=== PATIENT | male | born 1975 | race Two or more races ===

== ENCOUNTER 2016-11-09 21:09 | Emergency (ER) | payer OTHER ==
[~2016-11-09] VITALS: Ht 175.3 cm; Wt 75.0 kg
[~2016-11-09 21:09] MED LIST: HYDR-906 PO; OMEP10CA4 PO; ONDA4TAB11 PO; RANI150T9 PO
[2016-11-09 21:11] VITALS: Ht 175.3 cm; Wt 75.0 kg
[2016-11-10] MEDS ORDERED: ONDANSETRON 4 MG INJ IV STA (01:04)
--- NOTE | 2016-11-10 01:04 | ERD ---
ER Documentation Chief Complaint Date/Time DATE: 11/10/16 TIME: 01:02 Chief Complaint epigastric pain x 2 days, been drinking etoh yesterday hx- gastric ulcers ROS All systems reviewed and are negative except as per history of present illness. Medications Home Meds Active Scripts Omeprazole* (Omeprazole*) 10 Mg Capsule.dr, 10 MG PO DAILY, #30 CAP Prov:YVONNE HERRERA DO 07/14/16 Ranitidine Hcl* (Zantac*) 150 Mg Tablet, 150 MG PO BID Y for EPIGASTRIC PAIN, # 30 TAB Prov:YVONNE HERRERA DO 07/14/16 Hydrocodone/Acetaminophen ([place] 5-325 Tablet) 1 Each Tablet, 1 EACH PO Q6, #10 TAB Prov:YVONNE HERRERA DO 07/14/16 Ondansetron (Zofran Odt) 4 Mg Tab.rapdis, 4 MG PO Q6, #10 Prov:YVONNE HERRERA DO 07/14/16 Allergies Allergies: Coded Allergies: No Known Allergy (Unverified , 11/09/16) PMhx/Soc Hx Alcohol Use: Yes (OCCASIONAL) Hx Substance Use: No Hx Tobacco Use: Yes (1PK/DAY) Smoking Status: Current every day smoker Physical Exam Vitals Vital Signs Date Time Temp Pulse Resp B/P Pulse Ox O2 Delivery O2 Flow Rate FiO2 11/09/16 21:11 98.3 113 20 166/97 100 Results 24 hrs Current Medications Medications (Trade) Dose Ordered Sig/Devan Route PRN Reason Start Time Stop Time Status Last Admin Dose Admin Ondansetron HCl 4 mg 4 mg ONCE STAT IV 11/10/16 01:04 11/10/16 01:10 DC 11/10/16 01:16 Sodium Chloride (NS) 1,000 ml @ 1,000 mls/hr Q1H ONCE IV 11/10/16 01:30 11/10/16 02:29 11/10/16 01:17 Pantoprazole (Protonix Iv) 40 mg ONCE ONCE IV 11/10/16 01:30 11/10/16 01:31 Morphine Sulfate (morphine) 4 mg ONCE STAT IV 11/10/16 01:16 11/10/16 01:18 DC Departure Diagnosis: Primary Impression: Epigastric pain Condition: Stable Additional Instructions: Follow-up with your primary care physician within 1 week. Return to the emergency department immediately should you have any new or worsening symptoms, uncontrolled fevers, or other unexplained symptoms. Take all medications as directed. VALDEZ MILIAN PA-C Nov 10, 2016 01:04 VALDEZ MILIAN PA-C Nov 10, 2016 01:04
[2016-11-10] MEDS ORDERED: morphine 4 MG/ML VIAL IV STA ×3 (01:16→02:29)
[2016-11-10] MEDS ORDERED: LIDOCAINE/MYLANTA 40 ML BTL PO ONE (01:30)
[2016-11-10] MEDS ORDERED: PANTOPRAZOLE 40 MG INJ IV ONE (01:30)
[2016-11-10] MEDS ORDERED: SOD CHLORIDE 0.9% 1,000 ML IV ONE (01:30)
[2016-11-10 01:42] LABS: BASOPHILS % 0.4 % (0.0-2.0); EOSINOPHILS % 0.3 % (0.0-7.0); HEMATOCRIT 47.6 % (42.0-52.0); HEMOGLOBIN 16.4 g/dl (14.0-18.0); LYMPHOCYTES # 2.2 10^3/ul (0.8-2.9); LYMPHOCYTES % 17.4 % (15.0-51.0); MEAN CORPUSCULAR HGB CONC 34.4 g/dl (32.0-37.0); MEAN CORPUSCULAR VOLUME 93.1 fl (82.0-101.0); MEAN PLATELET VOLUME 7.6 fl (7.4-10.4); MONOCYTE # 1.1 10^3/ul (0.3-0.9); MONOCYTES % 8.7 % (0.0-11.0); NEUTROPHIL # 9.3 10^3/ul (1.6-7.5); NEUTROPHILS % 73.2 % (39.0-77.0); PLATELET COUNT 294 10^3/UL (140-440); RED BLOOD COUNT 5.11 10^6/ul (4.70-6.10); RED CELL DISTRIBUTION WIDTH 15.2 % (11.5-14.5); UNCORRECTED WBC 12.7 10^3/ul (4.8-10.8); WHITE BLOOD COUNT 12.7 10^3/ul (4.8-10.8)
[2016-11-10 01:43] LABS: CONDITION 1; LH ANALYZER COMMENTS 1
[2016-11-10 02:07] LABS: ALBUMIN 4.9 g/dl (3.3-4.9); POTASSIUM 3.7 mmol/L (3.5-5.1)
[2016-11-10 02:09] LABS: CREATININE 0.76 mg/dl (0.61-1.24)
[2016-11-10 02:10] LABS: ALBUMIN/GLOBULIN RATIO 1.58; BILIRUBIN,INDIRECT 0.6 mg/dl (0-1.1); BILIRUBIN,TOTAL 0.6 mg/dl (0.2-1.3); CALCIUM 9.2 mg/dl (8.4-10.2)
[2016-11-10 03:13] LABS: URINE BLOOD (Dip) POC Trace-lysed (NEGATIVE)
[2016-11-10] MEDS ORDERED: HYDROmorphONE 1 MG/ML SYG IV STA (03:58)
[2016-11-10 04:07] LABS: BARBITURATES Negative (NEGATIVE); BENZODIAZEPINES Negative (NEGATIVE); CANNABINOIDS Positive (NEGATIVE)
[2016-11-10 04:09] LABS: COCAINE Negative (NEGATIVE); OPIATES Positive (NEGATIVE)
[2016-11-10] MEDS ORDERED: OMEP20CA16 PO (04:59)
--- NOTE | 2016-11-10 05:13 | ERD ---
ER Documentation Chief Complaint Date/Time DATE: 11/10/16 TIME: 05:10 Chief Complaint epigastric pain x 2 days, been drinking etoh yesterday hx- gastric ulcers HPI 41-year-old male with a past medical history of gastric ulcers, alcohol abuse, presents the ED complaining of epigastric pain that started yesterday. States that he took 4-5 shots of vodka yesterday as well as was drinking earlier today. States that he feels nauseous and had a few episodes of nonbilious nonbloody vomiting. States that this feels like a burning sensation. Reports that he has been drinking for years. Denies any diabetes, hypertension, hypercholesterolemia. Denies any family history of acute [place]. Denies any use of drugs. Denies any chest pain, shortness of breath, cough, fever. ROS All systems reviewed and are negative except as per history of present illness. Medications Home Meds Active Scripts Omeprazole* (Omeprazole*) 20 Mg Capsule., 20 MG PO DAILY, #30 CAP Prov:FAMILIA YOUNG PA-C 11/10/16 Omeprazole* (Omeprazole*) 10 Mg Capsule., 10 MG PO DAILY, #30 CAP Prov:YVONNE HERRERA DO 07/14/16 Ranitidine Hcl* (Zantac*) 150 Mg Tablet, 150 MG PO BID Y for EPIGASTRIC PAIN, # 30 TAB Prov:YVONNE HERRERA DO 07/14/16 Hydrocodone/Acetaminophen ([place] 5-325 Tablet) 1 Each Tablet, 1 EACH PO Q6, #10 TAB Prov:YVONNE HERRERA DO 07/14/16 Ondansetron (Zofran Odt) 4 Mg Tab.rapdis, 4 MG PO Q6, #10 Prov:YVONNE HERRERA DO 07/14/16 Allergies Allergies: Coded Allergies: No Known Allergy (Unverified , 11/09/16) PMhx/Soc Hx Alcohol Use: Yes (OCCASIONAL) Hx Substance Use: No Hx Tobacco Use: Yes (1PK/DAY) Smoking Status: Current every day smoker Physical Exam Vitals Vital Signs Date Time Temp Pulse Resp B/P Pulse Ox O2 Delivery O2 Flow Rate FiO2 11/09/16 21:11 98.3 113 20 166/97 100 Physical Exam Const: [id number], well-nourished. In no acute distress. Head: Atraumatic, normocephalic Eyes: Normal Conjunctiva without injection. No purulent discharge. ENT: Normal external ear, nose. Moist oropharynx without tonsillar exudates. Non -erythematous pharynx. Uvula midline. No drooling. No trismus. Neck: No cervical midline tenderness. Full range of motion. No meningismus. No cervical lymphadenopathy. No JVD. Resp: Clear to auscultation bilaterally. No wheezing, rhonchi, rales, or crackles. No accessory muscle use. No retractions. Cardio: Regular rate and rhythm. No murmurs, rubs or gallops. Abd: Soft, epigastric tenderness, non distended. Normal bowel sounds. No palpable masses. No rebound tenderness. No guarding. Negative McBurney's point. Negative psoas sign. Negative obturator sign. Skin: No petechiae or rashes Back: No midline tenderness. No CVA tenderness. Ext: No cyanosis, or edema. Neur: Awake and alert. Normal gait. Normal coordination. Psych: Normal Mood and Affect Result Diagram: 11/10/1612411/10/16 0125 Results 24 hrs Laboratory Tests Test 11/10/16 01:25 11/10/16 03:05 11/10/16 03:14 Alanine Aminotransferase (ALT/SGPT) 89IU/L Albumin 4.9g/dl Albumin/Globulin Ratio 1.58 Alkaline Phosphatase 121IU/L Anion Gap 26 Aspartate Amino Transf (AST/SGOT) 95IU/L Basophils # 0.010^3/ul Basophils % 0.4% Blood Morphology Comment Blood Urea Nitrogen 12mg/dl Calcium Level 9.2mg/dl Carbon Dioxide Level 26mmol/L Chloride Level 98mmol/L Creatinine 0.76mg/dl Direct Bilirubin 0.00mg/dl Eosinophils # 0.010^3/ul Eosinophils % 0.3% Ethyl Alcohol Level 218.0mg/dl Globulin 3.10g/dl Glucose Level 90mg/dl Hematocrit 47.6% Hemoglobin 16.4g/dl Indirect Bilirubin 0.6mg/dl Lipase 244U/L Lymphocytes # 2.210^3/ul Lymphocytes % 17.4% Mean Corpuscular Hemoglobin 32.0pg Mean Corpuscular Hemoglobin Concent 34.4g/dl Mean Corpuscular Volume 93.1fl Mean Platelet Volume 7.6fl Monocytes # 1.110^3/ul Monocytes % 8.7% Neutrophils # 9.310^3/ul Neutrophils % 73.2% Nucleated Red Blood Cells # 0.010^3/ul Nucleated Red Blood Cells % 0.0/100WBC Platelet Count 24230^3/UL Potassium Level 3.7mmol/L Red Blood Count 5.1110^6/ul Red Cell Distribution Width 15.2% Sodium Level 146mmol/L Total Bilirubin 0.6mg/dl Total Protein 8.0g/dl White Blood Count 12.710^3/ul Urine Amphetamines Screen Negative Urine Barbiturates Negative Urine Benzodiazepines Screen Negative Urine Cannabinoids Positive Urine Cocaine Screen Negative Urine Opiates Screen Positive Bedside Urine Blood Trace-lysed Bedside Urine Glucose (UA) Negative Bedside Urine Ketones (LAB) 2+ Bedside Urine Leukocyte Esterase (L Negative Bedside Urine Nitrite (LAB) Negative Bedside Urine Protein (LAB) 2+ Bedside Urine pH (LAB) 7.0 Current Medications Medications (Trade) Dose Ordered Sig/Devan Route PRN Reason Start Time Stop Time Status Last Admin Dose Admin Ondansetron HCl 4 mg 4 mg ONCE STAT IV 11/10/16 01:04 11/10/16 01:10 DC 11/10/16 01:16 Sodium Chloride (NS) 1,000 ml @ 1,000 mls/hr Q1H ONCE IV 11/10/16 01:30 11/10/16 02:29 DC 11/10/16 01:17 Pantoprazole (Protonix Iv) 40 mg ONCE ONCE IV 11/10/16 01:30 11/10/16 01:31 DC 11/10/16 01:38 Morphine Sulfate (morphine) 4 mg ONCE STAT IV 11/10/16 01:16 11/10/16 01:17 Cancel Miscellaneous Medication (Gi Cocktail (2)) 40 ml ONCE ONCE PO 11/10/16 01:30 11/10/16 01:31 DC 11/10/16 01:37 Morphine Sulfate (morphine) 4 mg ONCE STAT IV 11/10/16 01:49 11/10/16 01:51 DC 11/10/16 02:00 Morphine Sulfate (morphine) 3 mg ONCE STAT IV 11/10/16 02:29 11/10/16 02:30 DC 11/10/16 02:36 Hydromorphone HCl (Dilaudid) 1 mg ONCE STAT IV 11/10/16 03:58 11/10/16 04:00 DC 11/10/16 04:05 Procedures/MDM 41-year-old male with a past medical history of alcohol use, gastric ulcer presents to the ED complaining of epigastric pain. Patient is afebrile and nontoxic-appearing. She is in distress due to his pain. A CBC, CMP, lipase, and urine dip, 1 L of normal saline, GI cocktail, ethanol, Protonix 40 mg IV was ordered to further treat and evaluate patient. Patient's pain finally improved after being treated with 7 mg's IV morphine and 1 mg Dilaudid. CBC: No leukocytosis. No e/o of systemic infection. No e/o anemia. CMP: No e/o severe acidosis, alkalosis, renal failure, diabetic ketoacidosis, liver disease Lipase within normal limits. Urine: No leukocyte esterase, no nitrites, no hematuria. Positive for opioid and cannabinoid use. EKG reviewed and interpreted by Dr. Hernandez Rate/Rhythm: [83 bpm, Normal Sinus Rhythm] No ectopy, no ST elevations, normal axis. QRS, ST, T-waves: [No changes consistent w/ acute ischemia] Impression: [No evidence of ischemia or arrhythmia] Low suspicion for acute myocardial infarction, pneumothorax, pneumonia, cardiac tamponade, pulmonary embolism, AAA, aortic dissection, Boerhaave's syndrome, cardiac dysrhythmias,meningitis, intracranial bleed, seizure, stroke, TIA or other emergent conditions. Patient's pain is likely due to gastritis. I strictly instructed patient to discontinue the use of alcohol use. A differential diagnosis considered includes but is not limited to gastritis, GERD, peptic ulcer disease, cholecystitis, choledocholithiasis, cholangitis, pancreatitis, appendicitis, bowel obstruction, ileus, volvulus, nephrolithiasis, pyelonephritis, hepatitis, perforated viscus, diverticulitis, abdominal hernia, acute abdomen, mesenteric ischemia or other emergent conditions. Discharge medications: Omeprazole Follow up with primary care physician in 1-2 days for referral to powder expert. Instructed patient to return to the ED sooner for any worsening symptoms. Patient's questions were answered. Patient understood and agreed with discharge plan. Patient discharged stable. Departure Diagnosis: Primary Impression: Epigastric pain Condition: Stable Patient Instructions: Gastritis Vs. Ulcer, Alcohol Abuse Referrals: [facility] YOU HAVE RECEIVED A MEDICAL SCREENING EXAM AND THE RESULTS INDICATE THAT YOU DO NOT HAVE A CONDITION THAT REQUIRES URGENT TREATMENT IN THE EMERGENCY DEPARTMENT. FURTHER EVALUATION AND TREATMENT OF YOUR CONDITION CAN WAIT UNTIL YOU ARE SEEN IN YOUR DOCTORS OFFICE WITHIN THE NEXT 1-2 DAYS. IT IS YOUR RESPONSIBILITY TO MAKE AN APPOINTMENT FOR FOLOW-UP CARE. IF YOU HAVE A PRIMARY DOCTOR --you should call your primary doctor and schedule an appointment IF YOU DO NOT HAVE A PRIMARY DOCTOR YOU CAN CALL OUR PHYSICIAN REFERRAL HOTLINE AT IF YOU CAN NOT AFFORD TO SEE A PHYSICIAN YOU CAN CHOSE FROM THE FOLLOWING [facility] [address] [facility]. [facility] [address] [facility]. [facility] [address] [facility] [facility] [address] [facility]. [facility] [address] [facility]. [facility] [address] [facility]. [facility] YOU HAVE RECEIVED A MEDICAL SCREENING EXAM AND THE RESULTS INDICATE THAT YOU DO NOT HAVE A CONDITION THAT REQUIRES URGENT TREATMENT IN THE EMERGENCY DEPARTMENT. FURTHER EVALUATION AND TREATMENT OF YOUR CONDITION CAN WAIT UNTIL YOU ARE SEEN IN YOUR DOCTORS OFFICE WITHIN THE NEXT 1-2 DAYS. IT IS YOUR RESPONSIBILITY TO MAKE AN APPOINTMENT FOR FOLOW-UP CARE. IF YOU HAVE A PRIMARY DOCTOR --you should call your primary doctor and schedule and appointment IF YOU DO NOT HAVE A PRIMARY DOCTOR YOU CAN CALL OUR PHYSICIAN REFERRAL HOTLINE AT . IF YOU CAN NOT AFFORD TO SEE A PHYSICIAN YOU CAN CHOSE FROM THE FOLLOWING [facility] INSTITUTIONS: [facility] [id number] [place] [address] [facility] [address] [place] [address] MERGED WITH [facility] + [facility] [address] [place] [address] [facility] URGENT [facility]/SPECIALTIES Additional Instructions: Follow-up with your primary care physician within 1-2 days. Return to the emergency department immediately should you have any new or worsening symptoms, uncontrolled fevers, or other unexplained symptoms. Take all medications as directed. FAMILIA YOUNG PA-C Nov 10, 2016 05:13
[2016-11-10 07:28] VITALS: BP 172/83; PULSE 101; RESP 18; TEMP 98.7
== END 2016-11-10 07:29 | disposition home or self-care (01) ==
LOC: FTE 21:09
DX: R10.13 Epigastric pain (principal); R11.2 Nausea with vomiting, unspecified; F17.210 Nicotine dependence, cigarettes, uncomplicated
CPT/HCPCS: 80053; 80306; 80307; 81003; 83690; 85025; 93005; 96374; 96375; 96376; C9113; J1170; J2270; J2405; J7030; Z7502; Z7610

== ENCOUNTER 2017-12-25 11:53 | Day surgery (SDC) | END 2017-12-25 15:01 | disposition home or self-care (01) ==

== ENCOUNTER 2018-01-22 21:54 | Inpatient (IN) | END 2018-01-30 17:30 | disposition home or self-care (01) | DRG 669 ==

== ENCOUNTER 2018-02-08 06:40 | Observation (INO) | END 2018-02-10 15:55 | disposition home or self-care (01) ==

== ENCOUNTER 2018-03-05 12:36 | Observation (INO) | END 2018-03-06 14:19 | disposition home or self-care (01) ==

== ENCOUNTER 2018-03-10 18:36 | Emergency (ER) | END 2018-03-10 23:25 | disposition home or self-care (01) ==

== ENCOUNTER 2018-03-11 15:25 | Observation (INO) | END 2018-03-13 12:40 | disposition home or self-care (01) ==

== ENCOUNTER 2018-03-26 16:15 | Emergency (ER) | END 2018-03-26 18:45 | disposition home or self-care (01) ==

== ENCOUNTER 2018-03-27 11:18 | Inpatient (IN) | END 2018-03-28 14:30 | disposition home or self-care (01) | DRG 374 ==

== ENCOUNTER 2018-04-12 15:02 | Emergency (ER) | END 2018-04-12 18:09 | disposition home or self-care (01) ==

== ENCOUNTER 2018-04-13 12:15 | Emergency (ER) | END 2018-04-13 14:12 | disposition home or self-care (01) ==

== ENCOUNTER 2018-04-14 14:14 | Observation (INO) | END 2018-04-17 13:41 | disposition home or self-care (01) ==

== ENCOUNTER 2018-05-03 16:30 | Emergency (ER) | END 2018-05-04 00:29 | disposition home or self-care (01) ==

== ENCOUNTER 2018-05-04 13:55 | Emergency (ER) | END 2018-05-04 15:57 | disposition home or self-care (01) ==

== ENCOUNTER 2018-05-05 14:41 | Inpatient (IN) | END 2018-05-07 13:05 | disposition home or self-care (01) | DRG 392 ==

== ENCOUNTER 2018-05-15 13:00 | Inpatient (IN) | END 2018-05-24 11:35 | disposition home health service (06) | DRG 331 ==

== ENCOUNTER 2018-06-04 05:10 | Inpatient (IN) | END 2018-06-06 18:00 | disposition home health service (06) | DRG 862 ==

== ENCOUNTER 2018-06-08 23:59 | Inpatient (IN) | END 2018-06-22 12:23 | disposition home or self-care (01) | DRG 907 ==

== ENCOUNTER 2018-08-06 18:44 | Emergency (ER) | END 2018-08-07 00:03 | disposition home or self-care (01) ==

== ENCOUNTER 2018-11-05 15:38 | Emergency (ER) | payer OTHER ==
[~2018-11-05] VITALS: Ht 177.8 cm; Wt 80.0 kg
[~2018-11-05 15:38] MED LIST changes: +ACET325T33 PO; +AMI10 PO; +HYDR-3609 PO; -HYDR-906 PO; +HYDR2TAB3 PO; +IBUP-1561 PO; +LIDO700A29 TP; -OMEP10CA4 PO; -ONDA4TAB11 PO; +ONDA4TAB8 PO; +PANT40TA3 PO; -RANI150T9 PO; +TRIM300C16 PO; +UDMYL PO
[2018-11-05 15:39] VITALS: Ht 177.8 cm; Wt 80.0 kg
[2018-11-05] MEDS ORDERED: HYDROmorphONE 1 MG/ML SYG IV STA (16:55)
[2018-11-05] MEDS ORDERED: SOD CHLORIDE 0.9% 1,000 ML IV STA (16:55)
[2018-11-05] MEDS ORDERED: ONDANSETRON 4 MG INJ IV STA (16:55)
[2018-11-05] MEDS ORDERED: DEXTROSE 5%-0.45% NACL 500 ML BAG IV ONE (17:00)
--- NOTE | 2018-11-05 17:00 | ERD ---
ER Documentation Chief Complaint Chief Complaint vomiting today, cancer patient HPI 43-year-old gentleman history of rectal CA status post surgery, chemo, radiation who presents with nausea and vomiting. He states symptoms over the past 24-48 hours. Moderate epigastric and mayank-Umbilical abdominal discomfort. Emesis is nonbloody nonbilious. The patient has had serial episodes of this over the last year with no clear identifiable cause. He denies any chest pain or shortness of breath. No fevers. ROS All systems reviewed and are negative except as per history of present illness. Medications Home Meds Active Scripts Ondansetron Hcl* (Zofran*) 4 Mg Tablet, 4 MG PO Q8H PRN for NAUSEA AND/OR VOMITING, #30 TAB Prov:JAMES SALAZAR MD 08/06/18 Acetaminophen* (Tylenol*) 325 Mg Tablet, 2 TAB PO Q8 PRN for PAIN, #60 TAB Prov:JAMES SALAZAR MD 08/06/18 Ibuprofen* (Motrin*) 400 Mg Tab, 400 MG PO BID PRN for PAIN, #60 TAB Prov:JAMES SALAZAR MD 08/06/18 Lidocaine (Lidoderm) 1 Each Adh..patch, 1 EACH TP TID PRN for PAIN, #1 BOX Prov:JAMES SALAZAR MD 08/06/18 Magaldrate/Simethicone* (Mag-Al Plus Suspension*) 30 Ml Oral.susp, 30 ML PO Q4H PRN for GASTROINTESTINAL UPSET for 14 Days, #1 Prov:TITUS BLACKWOOD MD 05/24/18 Hydrocodone/Acetaminophen (Hydrocodone-Acetamin 10-325 mg) 1 Each Tablet, 1 TAB PO Q4H PRN for PAIN 1-6 for 14 Days, #60 TAB Prov:TITUS BLACKWOOD MD 05/24/18 Amitriptyline Hcl* (Elavil*) 10 Mg Tab, 10 MG PO HS for 30 Days, TAB Prov:TITUS BLACKWOOD MD 05/24/18 Pantoprazole* (Protonix*) 40 Mg Tablet.dr, 40 MG PO BID for 28 Days, #60 TAB Prov:TITUS BLACKWOOD MD 05/24/18 Trimethobenzamide Hcl* (Tigan*) 300 Mg Capsule, 300 MG PO TID PRN for NAUSEA, #10 CAP Prov:TITUS BLACKWOOD MD 05/24/18 Reported Medications Hydromorphone Hcl* (Hydromorphone Hcl*) 2 Mg Tablet, 2 MG PO Q4H PRN for PAIN, TAB 06/04/18 Allergies Allergies: Coded Allergies: No Known Allergy (Unverified , 06/08/18) PMhx/Soc History of Surgery: Yes (Ileostomy and Lithotripsy (04/2018)) Anesthesia Reaction: No Hx 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 Disorder: No Hx Respiratory Disorders: No Hx Cardiac Disorders: No Hx Psychiatric Problems: No Hx Miscellaneous Medical Probl: No Hx Alcohol Use: No Hx Substance Use: No Hx Tobacco Use: No FmHx Family History: No diabetes Physical Exam Vitals Vital Signs Date Temp Pulse Resp B/P (MAP) Pulse Ox O2 O2 Flow FiO2 Time Delivery Rate 11/05/18 76 16 116/66 100 Room Air 18:21 (83) 11/05/18 60 16 150/87 100 Room Air 16:59 (108) 11/05/18 98.0 67 20 170/94 97 15:39 (119) Physical Exam General: Uncomfortable Head: Normocephalic, atraumatic. Eyes: Pupils equally reactive, EOM intact ENT: Dry mucous membranes Neck: Supple, no lymphadenopathy Respiratory: Lungs clear bilaterally, no distress Cardiovascular: RRR, no murmurs, rubs, or gallops Abdominal: Soft, mild generalized tenderness without localization or peritonitis : Deferred MSK: No edema, no unilateral swelling, 5/5 strength Neurologic: Alert and oriented, moving all extremities, normal speech, no focal weakness, no cerebellar signs Skin: No rash Psych: Normal mood Result Diagram: 11/05/18 1707 11/05/187 Results 24 hrs Laboratory Tests Test 11/05/18 17:07 White Blood Count 9.3 10^3/ul Red Blood Count 4.43 10^6/ul Hemoglobin 13.2 g/dl Hematocrit 40.4 % Mean Corpuscular Volume 91.2 fl Mean Corpuscular Hemoglobin 29.8 pg Mean Corpuscular Hemoglobin Concent 32.7 g/dl Red Cell Distribution Width 16.9 % Platelet Count 306 10^3/UL Mean Platelet Volume 9.8 fl Immature Granulocytes % 0.400 % Neutrophils % 83.0 % Lymphocytes % 7.6 % Monocytes % 8.2 % Eosinophils % 0.5 % Basophils % 0.3 % Nucleated Red Blood Cells % 0.0 /100WBC Immature Granulocytes # 0.040 10^3/ul Neutrophils # 7.7 10^3/ul Lymphocytes # 0.7 10^3/ul Monocytes # 0.8 10^3/ul Eosinophils # 0.1 10^3/ul Basophils # 0.0 10^3/ul Nucleated Red Blood Cells # 0.0 10^3/ul Sodium Level 142 mmol/L Potassium Level 4.1 mmol/L Chloride Level 101 mmol/L Carbon Dioxide Level 28 mmol/L Anion Gap 13 Blood Urea Nitrogen 12 mg/dl Creatinine 0.79 mg/dl Est Glomerular Filtrat Rate mL/min > 60 mL/min Glucose Level 109 mg/dl Calcium Level 10.1 mg/dl Total Bilirubin 0.2 mg/dl Direct Bilirubin 0.00 mg/dl Indirect Bilirubin 0.2 mg/dl Aspartate Amino Transf (AST/SGOT) 19 IU/L Alanine Aminotransferase (ALT/SGPT) 10 IU/L Alkaline Phosphatase 123 IU/L Total Protein 8.5 g/dl Albumin 4.6 g/dl Globulin 3.90 g/dl Albumin/Globulin Ratio 1.17 Lipase 27 U/L Current Medications Medications Dose Sig/Devan Start Time Status Last (Trade) Ordered Route PRN Stop Time Admin Dose Reason Admin Sodium 1,000 ml @ Q1H STAT 11/05/18 DC 11/05/18 Chloride 1,000 mls/hr IV 16:55 16:59 11/05/18 17:54 1 mg ONCE STAT 11/05/18 DC 11/05/18 Hydromorphone IV 16:55 16:59 HCl 11/05/18 16:56 (Dilaudid) Ondansetron 4 mg ONCE STAT 11/05/18 DC 11/05/18 HCl (Zofran IV 16:55 16:59 Inj) 11/05/18 16:56 500 ml ONCE ONCE 11/05/18 DC 11/05/18 Dextrose/Sodi IV 17:00 17:00 um Chloride 11/05/18 17:01 (D5-1/2ns) Lorazepam 1 mg ONCE ONCE 11/05/18 DC 11/05/18 (Ativan) IV 18:30 18:37 11/05/18 18:31 1 mg ONCE STAT 11/05/18 DC 11/05/18 Hydromorphone IV 18:29 18:37 HCl 11/05/18 18:30 (Dilaudid) Procedures/MDM EKG, MONITORS, & DIAGNOSTIC IMAGING: CT abdomen and pelvis: IMPRESSION: 1. Compared to the prior study of 08/06/2018, there has been presumed interval surgery with small bowel an anastomosis in the right lower quadrant for this patient with changes of prior ileostomy. 2. The presacral chronic collection is seen previously with a thickened rim now has fecal material within the lumen but is overall smaller in size compared to the previous studies. Continued surveillance is recommended. 3. Bilateral intrarenal calculi more conspicuous than on the previous contrast enhanced exam the largest stone in the lower pole of the left kidney measuring 4.3 mm without hydronephrosis. 4. No new intraperitoneal collection is identified. EKG: I reviewed and interpreted a 12-lead EKG. Rhythm: Normal sinus rhythm ST Changes: No contiguous ST segment elevations T waves: No contiguous T wave inversions Impression: [No evidence of acute cardiac ischemia] LAB INTERPRETATION: * No acute process noted MEDICAL DECISION MAKING: Patient presents with nausea vomiting abdominal pain in the setting of history of rectal CA status post surgery, chemo, radiation. Broad differential exists including bowel obstruction. Recurrence of disease. Patient will benefit from labs and CT imaging. It does appear to this has been a subacute process over the last 1 year, unclear if we will have an identifiable cause but the patient is uncomfortable benefit from fluid and pain medication. Lower threshold for hospitalization. I will reach out to the patient's primary oncologist, Dr. Mccoy ER COURSE: * IV, IVF, Dilaudid and zofran given * D5 1/2 NS for dehydration provided * I spoke to Dr. Mccoy he states that this is consistent with prior presentations. She is concerned that the patient has introital nausea and vomiting possibly related to chronic marijuana use. He does not recommend hospitalization unless the patient cannot have improved symptoms. * Patient had a repeat dose of pain medication and now has a dramatic improvement of symptoms after Ativan. At this point the patient can be safely discharged home. We discussed inpatient hospital station with the patient prefers discharge. CONSULTATION: [None] DISPOSITION PLAN: The patient does not have an identifiable emergent medical condition that warrants inpatient hospitalization at this time. The patient is deemed safe for discharge with outpatient follow-up. We discussed follow up with the patient's primary care doctor within 24 to 48 hours as needed. We also discussed return to the emergency room for worsening symptoms or worsening condition. Outpatient referral: Dr. Darius Marie Diagnosis: Primary Impression: History of rectal cancer Additional Impressions: Nausea and vomiting Vomiting type: unspecified Vomiting Intractability: non-intractable Qualified Codes: R11.2 - Nausea with vomiting, unspecified Abdominal pain Abdominal location: generalized Qualified Codes: R10.84 - Generalized abdominal pain Condition: Stable MATEO LOW MD Nov 05, 2018 17:00
[2018-11-05] MEDS ORDERED: HYDROmorphONE 0.5 MG/0.5 ML SYG IV STA (18:29)
[2018-11-05] MEDS ORDERED: LORAZEPAM 2 MG INJ IV ONE (18:30)
[2018-11-05 19:50] VITALS: BP 128/72; PULSE 70; RESP 16
[2018-11-28] MEDS ORDERED: CEPH500C PO (22:07)
== END 2018-11-05 20:02 | disposition home or self-care (01) ==
LOC: E/R 15:38
DX: R11.2 Nausea with vomiting, unspecified (principal); R10.84 Generalized abdominal pain; Z85.048 Personal history of other malignant neoplasm of rectum, rectosigmoid junction, and anus
CPT/HCPCS: 36415; 74176; 80053; 83690; 85025; 93005; 96374; 96375; 96376; J1170; J2060; J2405; J7030; Z7502; Z7610

== ENCOUNTER 2018-12-04 21:17 | Inpatient (IN) | payer OTHER ==
[~2018-12-04] VITALS: Ht 177.8 cm; Wt 68.5 kg
[~2018-12-04 21:17] MED LIST changes: +CEPH500C PO
[2018-12-04] MEDS ORDERED: ONDANSETRON 4 MG INJ IV STA (21:22)
[2018-12-04] MEDS ORDERED: SOD CHLORIDE 0.9% 1,000 ML IV STA (21:22)
[2018-12-04] MEDS ORDERED: HYDROmorphONE 1 MG/ML SYG IV STA (21:22)
[2018-12-04] MEDS ORDERED: HYDROmorphONE 0.5 MG/0.5 ML SYG IV STA (22:10)
[2018-12-04] MEDS ORDERED: HYDROmorphONE 2 MG/ML SYG IV STA (22:25)
[2018-12-04] MEDS ORDERED: LORA1TAB PO (23:47)
[2018-12-04] MEDS ORDERED: CAPE500T17 PO (23:47)
[2018-12-04] MEDS ORDERED: HYDR4TAB PO (23:47)
[2018-12-04] MEDS ORDERED: AMIT25TA9 PO (23:47)
[2018-12-04] MEDS ORDERED: METO10TA92 PO (23:47)
--- NOTE | 2018-12-04 23:48 | ERD ---
ER Documentation Chief Complaint Chief Complaint BIBA for AP and rectal pain HPI 43-year-old male history of rectal CA undergoing chemotherapy status post resection who presents to the emergency room with severe abdominal pain. He is having rectal pain as well. Pain for approximately 6-12 hours. Pain is 10 out of 10. He does describe nausea and nonbloody nonbilious emesis. No fevers chills cough chest pain or shortness of breath. ROS All systems reviewed and are negative except as per history of present illness. Medications Home Meds Active Scripts Cephalexin* (Cephalexin*) 500 Mg Capsule, 500 MG PO Q8, #21 CAP Prov:GOKUL TEIXEIRA MD 11/28/18 Hydrocodone/Acetaminophen (Hydrocodone-Acetamin 10-325 mg) 1 Each Tablet, 1 TAB PO Q4H PRN for PAIN 1-6 for 14 Days, #60 TAB Prov:TITUS BLACKWOOD MD 05/24/18 Reported Medications Lorazepam* (Lorazepam*) 1 Mg Tablet, 1 MG PO HS PRN for ANXIETY, #30 TAB 12/04/18 Metoclopramide* (Reglan*) 10 Mg Tablet, 10 MG PO AC MEALS, TAB 12/04/18 Capecitabine* (Xeloda*) 500 Mg Tablet, 500 MG PO BID, TAB 12/04/18 Amitriptyline Hcl* (Amitriptyline Hcl*) 25 Mg Tablet, 25 MG PO QHS for 30 Days, #30 TAB 12/04/18 Hydromorphone Hcl* (Hydromorphone Hcl*) 4 Mg Tablet, 4 MG PO Q4H PRN for PAIN for 8 Days, #90 TAB 12/04/18 Discontinued Reported Medications Hydromorphone Hcl* (Hydromorphone Hcl*) 2 Mg Tablet, 2 MG PO Q4H PRN for PAIN, TAB 06/04/18 Discontinued Scripts Ondansetron Hcl* (Zofran*) 4 Mg Tablet, 4 MG PO Q8H PRN for NAUSEA AND/OR VOMITING, #30 TAB Prov:JAMES SALAZAR MD 08/06/18 Acetaminophen* (Tylenol*) 325 Mg Tablet, 2 TAB PO Q8 PRN for PAIN, #60 TAB Prov:JAMES SALAZAR MD 08/06/18 Ibuprofen* (Motrin*) 400 Mg Tab, 400 MG PO BID PRN for PAIN, #60 TAB Prov:JAMES SALAZAR MD 08/06/18 Lidocaine (Lidoderm) 1 Each Adh..patch, 1 EACH TP TID PRN for PAIN, #1 BOX Prov:JAMES SALAZAR MD 08/06/18 Magaldrate/Simethicone* (Mag-Al Plus Suspension*) 30 Ml Oral.susp, 30 ML PO Q4H PRN for GASTROINTESTINAL UPSET for 14 Days, #1 Prov:TITUS BLACKWOOD MD 05/24/18 Amitriptyline Hcl* (Elavil*) 10 Mg Tab, 10 MG PO HS for 30 Days, TAB Prov:TITUS BLACKWOOD MD 05/24/18 Pantoprazole* (Protonix*) 40 Mg Tablet.dr, 40 MG PO BID for 28 Days, #60 TAB Prov:TITUS BLACKWOOD MD 05/24/18 Trimethobenzamide Hcl* (Tigan*) 300 Mg Capsule, 300 MG PO TID PRN for NAUSEA, #10 CAP Prov:TITUS BLACKWOOD MD 05/24/18 Allergies Allergies: Coded Allergies: No Known Allergy (Unverified , 12/04/18) PMhx/Soc History of Surgery: Yes (Ileostomy and Lithotripsy (04/2018)) Anesthesia Reaction: No Hx 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 Disorder: No Hx Respiratory Disorders: No Hx Cardiac Disorders: No Hx Psychiatric Problems: No Hx Miscellaneous Medical Probl: Yes (Rectal cancer status post chemo and radiation) Hx Alcohol Use: No Hx Substance Use: No Hx Tobacco Use: No Smoking Status: Never smoker FmHx Family History: No diabetes Physical Exam Vitals Vital Signs Date Temp Pulse Resp B/P (MAP) Pulse Ox O2 O2 Flow FiO2 Time Delivery Rate 12/05/18 99.3 83 22 137/81 96 Room Air 00:12 (99) 12/04/18 99.3 90 20 122/74 99 Room Air 23:26 (90) 12/04/18 99.3 95 20 117/68 99 Room Air 22:03 (84) 12/04/18 99.3 100 20 117/68 99 21:29 (84) Physical Exam General: Cachectic, dehydrated, uncomfortable Head: Normocephalic, atraumatic. Eyes: Pupils equally reactive, EOM intact ENT: Dry mucous membranes Neck: Supple, no lymphadenopathy Respiratory: Lungs clear bilaterally, no distress Cardiovascular: RRR, no murmurs, rubs, or gallops Abdominal: Soft, inconsistent but mild generalized tenderness without peritonitis : Deferred MSK: No edema, no unilateral swelling, 5/5 strength Neurologic: Alert and oriented, moving all extremities, normal speech, no focal weakness, no cerebellar signs Skin: No rash Psych: Normal mood Result Diagram: 12/04/18214812/04/182148 Results 24 hrs Laboratory Tests Test 12/04/18 21:49 12/04/18 21:58 White Blood Count 12.2 10^3/ul Red Blood Count 4.00 10^6/ul Hemoglobin 11.6 g/dl Hematocrit 36.6 % Mean Corpuscular Volume 91.5 fl Mean Corpuscular Hemoglobin 29.0 pg Mean Corpuscular Hemoglobin Concent 31.7 g/dl Red Cell Distribution Width 16.1 % Platelet Count 460 10^3/UL Mean Platelet Volume 9.0 fl Immature Granulocytes % 0.800 % Neutrophils % 87.9 % Lymphocytes % 4.4 % Monocytes % 6.5 % Eosinophils % 0.2 % Basophils % 0.2 % Nucleated Red Blood Cells % 0.0 /100WBC Immature Granulocytes # 0.100 10^3/ul Neutrophils # 10.7 10^3/ul Lymphocytes # 0.5 10^3/ul Monocytes # 0.8 10^3/ul Eosinophils # 0.0 10^3/ul Basophils # 0.0 10^3/ul Nucleated Red Blood Cells # 0.0 10^3/ul Sodium Level 138 mmol/L Potassium Level 4.4 mmol/L Chloride Level 97 mmol/L Carbon Dioxide Level 31 mmol/L Anion Gap 10 Blood Urea Nitrogen 15 mg/dl Creatinine 0.74 mg/dl Est Glomerular Filtrat Rate mL/min > 60 mL/min Glucose Level 117 mg/dl Calcium Level 9.7 mg/dl Total Bilirubin 0.1 mg/dl Direct Bilirubin 0.00 mg/dl Indirect Bilirubin 0.1 mg/dl Aspartate Amino Transf (AST/SGOT) 36 IU/L Alanine Aminotransferase (ALT/SGPT) 54 IU/L Alkaline Phosphatase 138 IU/L Total Protein 8.0 g/dl Albumin 4.1 g/dl Globulin 3.90 g/dl Albumin/Globulin Ratio 1.05 Lipase 23 U/L Bedside Urine pH (LAB) 6.5 Bedside Urine Protein (LAB) 1+ Bedside Urine Glucose (UA) Negative Bedside Urine Ketones (LAB) Negative Bedside Urine Blood Trace-intact Bedside Urine Nitrite (LAB) Negative Bedside Urine Leukocyte Esterase (L Negative Current Medications Medications Dose Sig/Devan Start Time Status Last (Trade) Ordered Route PRN Stop Time Admin Dose Reason Admin Sodium 1,000 ml @ Q1H STAT 12/04/18 DC 12/04/18 Chloride 1,000 mls/hr IV 21:22 21:45 12/04/18 22:21 1 mg ONCE STAT 12/04/18 DC 12/04/18 Hydromorphone IV 21:22 21:45 HCl 12/04/18 21:23 (Dilaudid) Ondansetron 4 mg ONCE STAT 12/04/18 DC 12/04/18 HCl (Zofran IV 21:22 21:45 Inj) 12/04/18 21:23 1 mg ONCE STAT 12/04/18 DC 12/04/18 Hydromorphone IV 22:10 22:12 HCl 12/04/18 22:11 (Dilaudid) 2 mg ONCE STAT 12/04/18 DC 12/04/18 Hydromorphone IV 22:25 22:28 HCl 12/04/18 22:26 (Dilaudid) 1 mg ONCE STAT 12/05/18 DC Hydromorphone IV 00:16 HCl 12/05/18 00:17 (Dilaudid) Procedures/MDM EKG, MONITORS, & DIAGNOSTIC IMAGING: Ultrasound gallbladder: No acute process per radiologist read CT abdomen pelvis: PENDING LAB INTERPRETATION: I reviewed the laboratory testing and it shows no evidence of acute process MEDICAL DECISION MAKING: Patient presents with abdominal pain in the setting of rectal CA, prior surgery. A broad differential exists including hepatobiliary process, bowel obstruction among others. The patient does take oral narcotics at home. Laboratory testing and diagnostic imaging including CT of the abdomen pelvis and us of GB is appropriate. Low threshold for admission. ER COURSE: * I spoke to the on-call oncologist for Dr. Mccoy they will consult on the case * Laboratory testing is unrevealing. CT imaging is pending but low concern for acute intra-abdominal process. * The patient has required multiple doses of narcotics in the emergency room setting. The patient does take oral Dilaudid at home. Narcotics dependence is likely. CONSULTATION: None DISPOSITION PLAN: Accepting care team and consultations: I discussed the current laboratory data, diagnostic imaging and emergency care provided. Admitting team: Dr. Cameron Admitting team indication: Insurance directed Departure Diagnosis: Primary Impression: Chronic generalized abdominal pain Additional Impressions: Nausea and vomiting Vomiting type: unspecified Vomiting Intractability: intractable Qualified Codes: R11.2 - Nausea with vomiting, unspecified History of rectal cancer Condition: Stable MATEO LOW MD Dec 04, 2018 23:48
[2018-12-05] MEDS ORDERED: HYDROmorphONE 0.5 MG/0.5 ML SYG IV STA (00:16)
[2018-12-05] MEDS ORDERED: ACETAMINOPHEN 325 MG TAB PO PRN (00:30)
[2018-12-05] MEDS ORDERED: ONDANSETRON 4 MG INJ IV PRN (00:30)
[2018-12-05 02:35] VITALS: BP 131/84; PULSE 84; RESP 19
[2018-12-05 02:47] VITALS: Ht 177.8 cm; Wt 68.5 kg
[2018-12-05] MEDS: SOD CHLORIDE 0.9% 1,000 ML IV SCH ×2 (02:56→23:06)
[2018-12-05] MEDS: HYDROmorphONE 2 MG/ML SYG IV PRN ×10 (02:58→23:06)
[2018-12-05] MEDS ORDERED: POLYETHYLENE GLYCOL 17 GM PACKET PO PRN (03:00)
[2018-12-05] MEDS ORDERED: NACL 0.9% 3 ML SYG IV SCH (03:00)
[2018-12-05] MEDS ORDERED: LORAZEPAM 1 MG TAB PO PRN (03:00)
[2018-12-05] MEDS: PIPER-TAZO 3.375 GM IV (PMX) 100 ML IVPB SCH ×5 (03:13→23:55)
--- NOTE | 2018-12-05 03:16 | HP ---
Date/Time of Note Date/Time of Note DATE: 12/05/18 TIME: 03:15 Assessment/Plan VTE Prophylaxis Pharmacological prophylaxis: other Lines/Catheters IV Catheter Type (from Nrsg): Peripheral IV Assessment/Plan Hospital Course Objective Physical exam General: Patient is laying in bed and answers questions appropriately Mentation: Patient is alert and oriented 4, Head: Normocephalic atraumatic Eyes: EOMI, pupils reactive to light Neck: Supple, nontender, midline Respiratory: Clear to auscultation bilaterally Cardiovascular: regular rate, no obvious murmurs Gastrointestinal: Tender to palpation, bowel sounds heard. 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: Moves all extremities spontaneously Skin: No new skin lesions Assessment and plan Abdominal and rectal pain with bleeding -Patient has intermittent bleeding secondary to his rectal carcinoma, currently not bleeding, monitor closely -Imaging, CT does not appear to be diffusely changed when compared to a previous CT done approximately 1 week ago. I spoke with the radiologist over the phone and although it is not stated in the impression, he stated that there was likely a mild to moderate ileus as well as stool retained in the colon. Patient does have mild to moderate rectal wall thickening with perirectal and presacral stranding which he could not say an infection was completely ruled out but there are no abscesses. -Due to not being able to rule out infection, will start Zosyn for now -His constipation and retained stool is likely due to his pain medication, patient needs to be on a improved bowel regimen. Patient is only taking fiber at home -Ileus described by radiologist over the phone is also likely secondary to pain medication -Will allow pain medication, IV Dilaudid while in house, however patient understands that he will be making the situation worse in regards to his constipation and ileus if he continues to use. -Patient's oncologist has been notified by ED, unsure if they will come to visit over the weekend, day team physician to reassess. Sepsis -Unsure of true infectious, very mild -IV fluid -Sepsis protocol, blood cultures, lactic acid -IV antibiotic History of colon cancer, status post resection -Oncology recommendations appreciated, day team physician will need to find out if they will visit the patient over the weekend Anemia -Likely due to intermittent GI loss secondary to history of colon cancer, very mild, currently not bleeding, monitor Disposition -Admit for pain control, continue IV antibiotics until infection is ruled out. Result Diagram: 12/04/18214812/04/182148 Results 24hrs Laboratory Tests Test 12/04/18 21:49 12/04/18 21:58 White Blood Count 12.2 #H Red Blood Count 4.00 L Hemoglobin 11.6 L Hematocrit 36.6 L Mean Corpuscular Volume 91.5 Mean Corpuscular Hemoglobin 29.0 Mean Corpuscular Hemoglobin Concent 31.7 L Red Cell Distribution Width 16.1 H Platelet Count 460 #H Mean Platelet Volume 9.0 Immature Granulocytes % 0.800 H Neutrophils % 87.9 H Lymphocytes % 4.4 L Monocytes % 6.5 Eosinophils % 0.2 Basophils % 0.2 Nucleated Red Blood Cells % 0.0 Immature Granulocytes # 0.100 H Neutrophils # 10.7 H Lymphocytes # 0.5 L Monocytes # 0.8 Eosinophils # 0.0 Basophils # 0.0 Nucleated Red Blood Cells # 0.0 Sodium Level 138 Potassium Level 4.4 Chloride Level 97 Carbon Dioxide Level 31 Anion Gap 10 Blood Urea Nitrogen 15 Creatinine 0.74 Est Glomerular Filtrat Rate mL/min > 60 Glucose Level 117 Calcium Level 9.7 Total Bilirubin 0.1 L Direct Bilirubin 0.00 Indirect Bilirubin 0.1 Aspartate Amino Transf (AST/SGOT) 36 Alanine Aminotransferase (ALT/SGPT) 54 Alkaline Phosphatase 138 H Total Protein 8.0 Albumin 4.1 Globulin 3.90 H Albumin/Globulin Ratio 1.05 Lipase 23 Bedside Urine pH (LAB) 6.5 Bedside Urine Protein (LAB) 1+ H Bedside Urine Glucose (UA) Negative Bedside Urine Ketones (LAB) Negative Bedside Urine Blood Trace-intact H Bedside Urine Nitrite (LAB) Negative Bedside Urine Leukocyte Esterase (L Negative HPI/ROS Admit Date/Time Admit Date/Time Dec 05, 2018 at 00:17 Hx of Present Illness Patient is a male with a past medical history significant for rectal carcinoma undergoing chemotherapy status post resection who presents to the [facility] for worsening abdominal and rectal pain. Patient is on chronic pain medication due to his rectal cancer however states that this particular pain has been worsening. The pain is not new but it is more severe than before. Patient states that he occasionally has bleeding from his rectum, however it appears that today it has stopped, last time his rectum was bleeding was yesterday. Patient complains of severe abdominal rectal pain and right flank pain. Patient has not gotten ill recently and follows up with all his doctors on a normal basis. Patient describes nausea and vomiting that is nonbloody. Patient denies chills, cough, chest pain, shortness of breath, leg pain. PMH/Family/Social Past Medical History Medications Current Medications Ondansetron HCl (Zofran Inj) 4 mg BRIDGE ORDER PRN IV NAUSEA/VOMITING Last administered on 12/05/18at 00:26; Admin Dose 4 MG; Start 12/05/18 at 00:30; Stop 12/06/18 at 00:29 Acetaminophen (Tylenol Tab) 650 mg ER BRIDGE PRN PO .MILD PAIN 1-3 OR TEMP; Start 12/05/18 at 00:30; Stop 12/06/18 at 00:29 Coded Allergies: No Known Allergy (Unverified , 12/04/18) Past Surgical History Past Surgical Hx: other Family History Significant Family History: no pertinent family hx Social History Smoking Status: Never smoker Exam/Review of Systems Vital Signs Vitals Vital Signs Date Temp Pulse Resp B/P (MAP) Pulse Ox O2 O2 Flow FiO2 Time Delivery Rate 12/05/18 99.3 94 18 137/106 97 Room Air 01:53 (116) JAMES BEACH Dec 05, 2018 03:16
[2018-12-05] MEDS: ONDANSETRON 4 MG INJ IV PRN ×2 (05:49→21:10)
[2018-12-05] MEDS ORDERED: METOCLOPRAMIDE 10 MG TAB PO SCH (07:30)
[2018-12-05 08:00] VITALS: BP 115/68; PULSE 75; RESP 20
[2018-12-05] MEDS: METOCLOPRAMIDE 10 MG INJ IV SCH ×3 (08:45→17:10)
[2018-12-05] MEDS ORDERED: CAPECITABINE 500 MG TAB PO SCH (09:00)
[2018-12-05] MEDS ORDERED: DOCUSATE SODIUM 100 MG CAP PO SCH (09:00)
[2018-12-05 10:47] VITALS: BP 117/63; PULSE 75
[2018-12-05 12:56] VITALS: BP 109/64; PULSE 80
--- NOTE | 2018-12-05 14:45 | PN ---
Date/Time of Note Date/Time of Note DATE: 12/05/18 TIME: 14:30 Assessment/Plan VTE Prophylaxis Risk score (from Ns)>0 risk: 3 SCD applied (from Ns): No SCD contraindicated: other Pharmacological prophylaxis: heparin Lines/Catheters IV Catheter Type (from Nrs): Peripheral IV Urinary Cath still in place: No Assessment/Plan Hospital Course S: Patient still some abdominal pain symptoms. His Xeloda medication was held by heme on team after nurse called them over the phone about it. O: VS - see below Physical exam General: Lying in bed and answers questions appropriately Head: Normocephalic atraumatic Eyes: EOMI, pupils reactive to light Neck: Supple, nontender, midline Respiratory: Clear to auscultation bilaterally Cardiovascular: regular rate, no obvious murmurs Gastrointestinal: Tender to palpation, bowel sounds heard. 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: No focal deficits Assessment and plan: 43-year-old male who presents with: # Abdominal and rectal pain with bleeding-Patient has intermittent bleeding secondary to his rectal carcinoma, currently not bleeding-Imaging, CT does not appear to be diffusely changed when compared to a previous CT done approximately 1 week ago. Admitting doctor discussed the case with radiology, there is mild to moderate ileus as well as stool retained in the colon. Patient does have mild to moderate rectal wall thickening with perirectal and presacral stranding which he could not say an infection was completely ruled out but there are no abscesses.-His constipation and retained stool is likely due to his pain medication, -Continue Zosyn for now - patient needs to be on a improved bowel regimen, continue current medications -Ileus described by radiologist over the phone is also likely secondary to pain medication, monitor for now -Will allow pain medication, IV Dilaudid while in house, however patient un derstands that he will be making the situation worse in regards to his constipation and ileus if he continues to use. -Patient's oncologist has been notified by ED, if they come follow-up their recommendations # Sepsis-Unsure of true infectious, very mild, again there was some rectal wall thickening mild to moderate seen on the CT scan. White blood cell count is normal today, no fevers. -Continue IV fluid -Sepsis protocol, blood cultures, lactic acid -As mentioned above continue IV antibiotic # History of colon cancer, status post resection -Oncology recommendations will be followed, again holding Xeloda for now # Anemia- Likely due to intermittent GI loss secondary to history of colon cancer, very mild, currently not bleeding, - monitor Result Diagram: 12/05/18 0357 12/05/18 0357 Results 24hrs Laboratory Tests Test 12/04/18 21:49 12/04/18 21:58 12/05/18 03:57 White Blood Count 12.2 #H 10.0 Red Blood Count 4.00 L 3.50 L Hemoglobin 11.6 L 10.2 L Hematocrit 36.6 L 31.4 L Mean Corpuscular Volume 91.5 89.7 Mean Corpuscular Hemoglobin 29.0 29.1 Mean Corpuscular 31.7 L 32.5 Hemoglobin Concent Red Cell Distribution Width 16.1 H 16.0 H Platelet Count 460 #H 394 Mean Platelet Volume 9.0 9.0 Immature Granulocytes % 0.800 H 0.600 H Neutrophils % 87.9 H 83.2 H Lymphocytes % 4.4 L 6.7 L Monocytes % 6.5 8.5 Eosinophils % 0.2 0.8 Basophils % 0.2 0.2 Nucleated Red Blood Cells % 0.0 0.0 Immature Granulocytes # 0.100 H 0.060 H Neutrophils # 10.7 H 8.3 H Lymphocytes # 0.5 L 0.7 L Monocytes # 0.8 0.9 Eosinophils # 0.0 0.1 Basophils # 0.0 0.0 Nucleated Red Blood Cells # 0.0 0.0 Sodium Level 138 135 Potassium Level 4.4 4.1 Chloride Level 97 101 Carbon Dioxide Level 31 24 Anion Gap 10 10 Blood Urea Nitrogen 15 12 Creatinine 0.74 0.67 Est Glomerular Filtrat > 60 > 60 Rate mL/min Glucose Level 117 134 Calcium Level 9.7 9.2 Total Bilirubin 0.1 L 0.1 L Direct Bilirubin 0.00 0.00 Indirect Bilirubin 0.1 0.1 Aspartate Amino Transf (AST/SGOT) 36 27 Alanine 54 56 Aminotransferase (ALT/SGPT) Alkaline Phosphatase 138 H 130 H Total Protein 8.0 7.0 # Albumin 4.1 3.5 Globulin 3.90 H 3.50 H Albumin/Globulin Ratio 1.05 1.00 Lipase 23 Bedside Urine pH (LAB) 6.5 Bedside Urine Protein (LAB) 1+ H Bedside Urine Glucose (UA) Negative Bedside Urine Ketones (LAB) Negative Bedside Urine Blood Trace-intact H Bedside Urine Nitrite (LAB) Negative Bedside Urine Leukocyte Esterase Negative (L Lactic Acid Level 1.2 Magnesium Level 2.3 Exam/Review of Systems Exam Vitals Vital Signs Date Temp Pulse Resp B/P (MAP) Pulse Ox O2 O2 Flow FiO2 Time Delivery Rate 12/05/18 80 109/64 12:56 (79) 12/05/18 98.7 20 94 08:00 12/05/18 Room Air 01:53 Intake and Output 12/04/18 12/04/18 12/05/18 1515:00 23:00 07:00 IntakeIntake Total 780 ml BalanceBalance 780 ml Results Results 24hrs Laboratory Tests Test 12/04/18 21:49 12/04/18 21:58 12/05/18 03:57 White Blood Count 12.2 #H 10.0 Red Blood Count 4.00 L 3.50 L Hemoglobin 11.6 L 10.2 L Hematocrit 36.6 L 31.4 L Mean Corpuscular Volume 91.5 89.7 Mean Corpuscular Hemoglobin 29.0 29.1 Mean Corpuscular 31.7 L 32.5 Hemoglobin Concent Red Cell Distribution Width 16.1 H 16.0 H Platelet Count 460 #H 394 Mean Platelet Volume 9.0 9.0 Immature Granulocytes % 0.800 H 0.600 H Neutrophils % 87.9 H 83.2 H Lymphocytes % 4.4 L 6.7 L Monocytes % 6.5 8.5 Eosinophils % 0.2 0.8 Basophils % 0.2 0.2 Nucleated Red Blood Cells % 0.0 0.0 Immature Granulocytes # 0.100 H 0.060 H Neutrophils # 10.7 H 8.3 H Lymphocytes # 0.5 L 0.7 L Monocytes # 0.8 0.9 Eosinophils # 0.0 0.1 Basophils # 0.0 0.0 Nucleated Red Blood Cells # 0.0 0.0 Sodium Level 138 135 Potassium Level 4.4 4.1 Chloride Level 97 101 Carbon Dioxide Level 31 24 Anion Gap 10 10 Blood Urea Nitrogen 15 12 Creatinine 0.74 0.67 Est Glomerular Filtrat > 60 > 60 Rate mL/min Glucose Level 117 134 Calcium Level 9.7 9.2 Total Bilirubin 0.1 L 0.1 L Direct Bilirubin 0.00 0.00 Indirect Bilirubin 0.1 0.1 Aspartate Amino Transf (AST/SGOT) 36 27 Alanine 54 56 Aminotransferase (ALT/SGPT) Alkaline Phosphatase 138 H 130 H Total Protein 8.0 7.0 # Albumin 4.1 3.5 Globulin 3.90 H 3.50 H Albumin/Globulin Ratio 1.05 1.00 Lipase 23 Bedside Urine pH (LAB) 6.5 Bedside Urine Protein (LAB) 1+ H Bedside Urine Glucose (UA) Negative Bedside Urine Ketones (LAB) Negative Bedside Urine Blood Trace-intact H Bedside Urine Nitrite (LAB) Negative Bedside Urine Leukocyte Esterase Negative (L Lactic Acid Level 1.2 Magnesium Level 2.3 Medications Medication Current Medications Amitriptyline HCl (Elavil) 25 mg QHS PO ; Start 12/05/18 at 21:00 Capecitabine (Xeloda) 500 mg BID PO Last administered on 12/05/18at 10:54; Admin Dose 500 MG; Start 12/05/18 at 09:00; Status Hold Lorazepam (Ativan) 1 mg HS PRN PO ANXIETY; Start 12/05/18 at 03:00 Sodium Chloride 1,000 ml @ 50 mls/hr Q20H IV Last administered on 12/05/18at 02:56; Admin Dose 50 MLS/HR; Start 12/05/18 at 02:39 IV Flush (NS 3 ml) 3 ml PER PROTOCOL IV ; Start 12/05/18 at 03:00 Ondansetron HCl (Zofran Inj) 4 mg Q6H PRN IV NAUSEA/VOMITING Last administered on 12/05/18at 05:49; Admin Dose 4 MG; Start 12/05/18 at 03:00 Piperacillin Sod/ Tazobactam Sod 100 ml @ 200 mls/hr Q6 IVPB Last administered on 12/05/18at 12:57; Admin Dose 200 MLS/HR; Start 12/05/18 at 03:01 Docusate Sodium (Colace) 100 mg BID PO Last administered on 12/05/18at 10:50; Admin Dose 100 MG; Start 12/05/18 at 09:00 Polyethylene Glycol (Miralax) 17 gm DAILY PRN PO CONSTIPATION; Start 12/05/18 at 03:00 Miscellaneous Information Patients own medicat... BID@,16 XX ; Start 12/05/18 at 10:00 Hydromorphone HCl (Dilaudid) 2 mg Q2H PRN IV .PAIN 7-10 Last administered on 12/05/18at 12:57; Admin Dose 2 MG; Start 12/05/18 at 09:00 Metoclopramide HCl (Reglan) 10 mg AC MEALS IV Last administered on 12/05/18at 11:24; Admin Dose 10 MG; Start 12/05/18 at 09:00 MILLIE SHIELDS Dec 05, 2018 14:42
[2018-12-05 15:10] VITALS: BP 132/67; PULSE 80; RESP 18
[2018-12-05] MEDS: SENNA TAB PO SCH ×2 (15:29→21:09)
[2018-12-05] MEDS: NICOTINE (21 MG/24 HR) PATCH TRANSDERM SCH (16:14)
--- NOTE | 2018-12-05 16:39 | CONS ---
DATE OF ADMISSION: 12/05/2018 DATE OF CONSULTATION: 12/05/2018 REASON FOR CONSULTATION: Rectal cancer. HISTORY OF PRESENT ILLNESS: This is a 43-year-old [place] gentleman with history of rectal cancer b ack in 2018 when he developed rectal bleed, abdominal pain. He started on concurrent chemoradiation per protocol. Completed the treatment by Dr. Dorado as an outpatient. After treatment, 04/2018, the patient underwent (APR) abdominoperineal resection of the rectal tumor. Since then, has been having prolonged postoperative course of recovery, multiple infections, did not feel well, repeated hospita lizations. Finally, 6 months later, he was started on adjuvant treatment, Xeloda and oxaliplatin in 10/2018. The patient comes to [facility] because of generalized weakness, fatigue, abdominal pain, constipation. Vomited x2 with 2 episodes of fever. Mild leukocytosis. No active b leeding, no hematemesis, no melena. Mild abdominal discomfort, mainly the epigastric and umbilical a reas. PAST MEDICAL HISTORY: Negative. FAMILY HISTORY: Positive for cancer. Father in stomach cancer and also grandfather had stomach cancer. Father had head and neck cancer post-laryngectomy. PHYSICAL EXAMINATION: VITAL SIGNS: Temperature 98.7, respiration of 20, BP 110/65, heart rate of 76. NECK: No supraclavicular nodes or axillary nodes. LUNGS: Clear. HEART: Normal S1, S2. ABDOMEN: Soft, mildly distended. Bowel sounds sluggish. ____ intact. LATEST LABORATORY DATA: White cell count 12,000, hemoglobin 11.6, hematocrit of 36, platelets 460,00 0. BUN 12, creatinine 0.6, alkaline phosphatase 130, albumin 3.5, sodium 135, potassium 4. IMAGING STUDIES: CT of the abdomen and pelvis showed mild to moderate rectal wall thickening, modera te retained stool, likely constipation, plus/minus picture of ileus, mild hepatomegaly, mild bladder wall thickening. ASSESSMENT AND PLAN: This is a 43-year-old gentleman with history of colorectal carcinoma back in . 1. Completed chemotherapy and radiation per protocol, Dr. Droado in 04/2018, underwent APR, permanen t stoma and tumor resection. 2. Adjuvant Xeloda, oxaliplatin, started 10/2018. 3. Admitted for abdominal discomfort, vomiting, constipation, plus/minus ileus. 4. Continue fluid, electrolyte balance, IV fluids per protocol. GI and surgical evaluation, the pat iecristal's surgeon is coming today or tomorrow to evaluate the patient. 5. No active tumor at this time. No oncological interventions. 6. Mild leukocytosis, intermittent fever. Antibiotics per protocol. 7. The patient has stable white count, hemoglobin and hematocrit and platelets. No need for transfu letha at this time. 8. No oncological interventions until discharge from the hospital. Dictated By: ERIC ALVARENGA/LORI Conf#: [id number] DID#: [id number] CC: JUSTINO DORADO;*EndCC*
[2018-12-05 20:00] VITALS: BP 121/61; PULSE 82; RESP 20
[2018-12-05] MEDS: DOCUSATE SODIUM 100 MG CAP PO SCH (21:08)
[2018-12-05] MEDS: AMITRIPTYLINE 25 MG TAB PO SCH (21:08)
[2018-12-05] MEDS: HEPARIN 5,000 UNIT/1 ML VIAL SC SCH (21:11)
[2018-12-06] MEDS: HYDROmorphONE 2 MG/ML SYG IV PRN ×11 (01:10→22:51)
[2018-12-06 01:54] VITALS: BP 116/66; PULSE 82; RESP 18
[2018-12-06] MEDS: PIPER-TAZO 3.375 GM IV (PMX) 100 ML IVPB SCH ×4 (06:25→23:35)
[2018-12-06] MEDS: METOCLOPRAMIDE 10 MG INJ IV SCH ×3 (06:28→17:02)
[2018-12-06 08:34] VITALS: BP 115/60; PULSE 70; RESP 16
[2018-12-06] MEDS: SENNA TAB PO SCH ×2 (09:00→20:53)
[2018-12-06] MEDS: HEPARIN 5,000 UNIT/1 ML VIAL SC SCH ×2 (09:00→20:56)
[2018-12-06] MEDS: DOCUSATE SODIUM 100 MG CAP PO SCH ×2 (09:00→20:53)
[2018-12-06] MEDS: NICOTINE (21 MG/24 HR) PATCH TRANSDERM SCH (09:01)
[2018-12-06 14:36] VITALS: BP 120/71; PULSE 75; RESP 17
[2018-12-06] MEDS ORDERED: NA PHOSPHATE/BIPHOS 133 ML ENEMA PR ONE (15:00)
--- NOTE | 2018-12-06 15:05 | PN ---
Date/Time of Note Date/Time of Note DATE: 12/06/18 TIME: 15:01 Assessment/Plan VTE Prophylaxis Risk score (from Ns)>0 risk: 3 SCD applied (from Ns): No SCD contraindicated: other Pharmacological prophylaxis: heparin Lines/Catheters IV C[facility]ter Type (from [facility] Peripheral IV Urinary Cath still in place: No Assessment/Plan Hospital Course S: Patient seen by hematology oncology team yesterday. Still having some pain symptoms requesting Dilaudid. Able to tolerate some diet. O: VS - see below Physical exam General: Lying in bed and answers questions appropriately Head: Normocephalic atraumatic Eyes: EOMI, pupils reactive to light Neck: Supple, nontender, midline Respiratory: Clear to auscultation bilaterally Cardiovascular: regular rate, no obvious murmurs Gastrointestinal: Tender to palpation, bowel sounds heard. 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: No focal deficits Assessment and plan: 43-year-old male who presents with: # Abdominal and rectal pain with bleeding-Patient has intermittent bleeding secondary to his rectal carcinoma, currently not bleeding-Imaging, CT does not appear to be diffusely changed when compared to a previous CT done approximately 1 week ago. Admitting doctor discussed the case with radiology, there is mild to moderate ileus as well as stool retained in the colon. Patient does have mild to moderate rectal wall thickening with perirectal and presacral stranding which he could not say an infection was completely ruled out but there are no abscesses.-His constipation and retained stool is likely due to his pain medication,-Ileus described by radiologist over the phone is also likely secondary to pain medication. -Continue Zosyn for now -Continue senna twice a day, Colace twice a day, now MiraLAX daily, and will try Fleet enema as well -Will allow pain medication, IV Dilaudid while in house, however patient understands that he will be making the situation worse in regards to his constipation and ileus if he continues to use. -Per hematology oncology team, patient completed chemotherapy and radiation per protocol, Dr. Dorado in 04/2018, underwent APR, permanent stoma and tumor resection. Follow-up further hematology oncology recommendations # Sepsis-Unsure of true infectious, very mild, again there was some rectal wall thickening mild to moderate seen on the CT scan. White blood cell count is normal today, no fevers. -Continue IV fluid -Sepsis protocol, blood cultures, lactic acid -As mentioned above continue IV antibiotic # History of colon cancer, status post resection -Oncology recommendations will be followed, again holding Xeloda for now # Anemia- Likely due to intermittent GI loss secondary to history of colon cancer, very mild, currently not bleeding, - monitor Result Diagram: 12/06/1844812/06/18448 Results 24hrs Laboratory Tests Test 12/06/18 04:49 White Blood Count 7.0 # Red Blood Count 3.44 L Hemoglobin 10.0 L Hematocrit 31.9 L Mean Corpuscular Volume 92.7 Mean Corpuscular Hemoglobin 29.1 Mean Corpuscular Hemoglobin Concent 31.3 L Red Cell Distribution Width 15.9 H Platelet Count 355 Mean Platelet Volume 9.0 Immature Granulocytes % 0.700 H Neutrophils % 77.8 H Lymphocytes % 9.8 L Monocytes % 9.8 Eosinophils % 1.6 Basophils % 0.3 Nucleated Red Blood Cells % 0.0 Immature Granulocytes # 0.050 H Neutrophils # 5.5 Lymphocytes # 0.7 L Monocytes # 0.7 Eosinophils # 0.1 Basophils # 0.0 Nucleated Red Blood Cells # 0.0 Sodium Level 137 Potassium Level 3.8 Chloride Level 101 Carbon Dioxide Level 31 Anion Gap 5 Blood Urea Nitrogen 8 Creatinine 0.75 Est Glomerular Filtrat Rate mL/min > 60 Glucose Level 102 Calcium Level 9.1 Phosphorus Level 3.8 Magnesium Level 2.2 Exam/Review of Systems Exam Vitals Vital Signs Date Temp Pulse Resp B/P (MAP) Pulse Ox O2 O2 Flow FiO2 Time Delivery Rate 12/06/18 98.7 75 17 120/71 95 Room Air 14:36 (87) Intake and Output 12/05/18 12/05/18 12/06/18 1515:00 23:00 07:00 IntakeIntake Total 1150 ml 1250 ml 1050 ml OutputOutput Total 2 ml BalanceBalance 1148 ml 1250 ml 1050 ml Results Results 24hrs Laboratory Tests Test 12/06/18 04:49 White Blood Count 7.0 # Red Blood Count 3.44 L Hemoglobin 10.0 L Hematocrit 31.9 L Mean Corpuscular Volume 92.7 Mean Corpuscular Hemoglobin 29.1 Mean Corpuscular Hemoglobin Concent 31.3 L Red Cell Distribution Width 15.9 H Platelet Count 355 Mean Platelet Volume 9.0 Immature Granulocytes % 0.700 H Neutrophils % 77.8 H Lymphocytes % 9.8 L Monocytes % 9.8 Eosinophils % 1.6 Basophils % 0.3 Nucleated Red Blood Cells % 0.0 Immature Granulocytes # 0.050 H Neutrophils # 5.5 Lymphocytes # 0.7 L Monocytes # 0.7 Eosinophils # 0.1 Basophils # 0.0 Nucleated Red Blood Cells # 0.0 Sodium Level 137 Potassium Level 3.8 Chloride Level 101 Carbon Dioxide Level 31 Anion Gap 5 Blood Urea Nitrogen 8 Creatinine 0.75 Est Glomerular Filtrat Rate mL/min > 60 Glucose Level 102 Calcium Level 9.1 Phosphorus Level 3.8 Magnesium Level 2.2 Medications Medication Current Medications Amitriptyline HCl (Elavil) 25 mg QHS PO Last administered on 12/05/18 21:08; Admin Dose 25 MG; Start 12/05/18 at 21:00 Capecitabine (Xeloda) 500 mg BID PO Last administered on 12/05/18 10:54; Admin Dose 500 MG; Start 12/05/18 at 09:00; Status Hold Lorazepam (Ativan) 1 mg HS PRN PO ANXIETY; Start 12/05/18 at 03:00 Sodium Chloride 1,000 ml @ 50 mls/hr Q20H IV Last administered on 12/05/18 23 :06; Admin Dose 50 MLS/HR; Start 12/05/18 at 02:39 IV Flush (NS 3 ml) 3 ml PER PROTOCOL IV ; Start 12/05/18 at 03:00 Ondansetron HCl (Zofran Inj) 4 mg Q6H PRN IV NAUSEA/VOMITING Last administered on 12/05/18at 21:10; Admin Dose 4 MG; Start 12/05/18 at 03:00 Piperacillin Sod/ Tazobactam Sod 100 ml @ 200 mls/hr Q6 IVPB Last administered on 12/06/18at 12:58; Admin Dose 200 MLS/HR; Start 12/05/18 at 03:01 Polyethylene Glycol (Miralax) 17 gm DAILY PRN PO CONSTIPATION Last administered on 12/05/18at 15:29; Admin Dose 17 GM; Start 12/05/18 at 03:00 Miscellaneous Information Patients own medicat... BID@10,16 XX ; Start 12/05/18 at 10:00 Hydromorphone HCl (Dilaudid) 2 mg Q2H PRN IV .PAIN 7-10 Last administered on 12/06/18 12:58; Admin Dose 2 MG; Start 12/05/18 at 09:00 Metoclopramide HCl (Reglan) 10 mg AC MEALS IV Last administered on 12/06/18 11:16; Admin Dose 10 MG; Start 12/05/18 at 09:00 Heparin Sodium (Porcine) (Heparin (5000 Units/1ml)) 5,000 unit BID SC Last administered on 12/05/18 21:11; Admin Dose 5,000 UNIT; Start 12/05/18 at 21:00 Senna (Senokot) 1 tab BID PO Last administered on 12/06/18 09:00; Admin Dose 1 TAB; Start 12/05/18 at 15:00 Docusate Sodium (Colace) 200 mg BID PO Last administered on 12/06/18 09:00; Admin Dose 200 MG; Start 12/05/18 at 21:00 Nicotine (Nicoderm 21 Mg/ 24hr) 1 patch DAILY TRANSDERM Last administered on 12/06/18 09:01; Admin Dose 1 PATCH; Start 12/05/18 at 15:30 MILLIE SHIELDS Dec 06, 2018 15:05
[2018-12-06] MEDS: POLYETHYLENE GLYCOL 17 GM PACKET PO SCH (15:14)
[2018-12-06] MEDS ORDERED: HYDROmorphONE 2 MG/ML SYG IV PRN (17:00)
[2018-12-06] MEDS: SOD CHLORIDE 0.9% 1,000 ML IV SCH ×2 (17:53→21:49)
[2018-12-06 19:49] VITALS: BP 109/86; PULSE 85; RESP 18
[2018-12-06] MEDS: AMITRIPTYLINE 25 MG TAB PO SCH (20:53)
[2018-12-07] MEDS: HYDROmorphONE 2 MG/ML SYG IV PRN ×12 (00:51→23:03)
[2018-12-07 02:00] VITALS: BP 116/67; PULSE 64; RESP 18
[2018-12-07] MEDS: PIPER-TAZO 3.375 GM IV (PMX) 100 ML IVPB SCH ×3 (05:40→16:56)
[2018-12-07] MEDS: METOCLOPRAMIDE 10 MG INJ IV SCH ×3 (06:50→16:48)
[2018-12-07 07:51] VITALS: BP 123/62; PULSE 78; RESP 20
[2018-12-07] MEDS: DOCUSATE SODIUM 100 MG CAP PO SCH ×2 (08:46→21:09)
[2018-12-07] MEDS: SENNA TAB PO SCH ×2 (08:46→21:00)
[2018-12-07] MEDS: NICOTINE (21 MG/24 HR) PATCH TRANSDERM SCH (08:47)
[2018-12-07] MEDS: HEPARIN 5,000 UNIT/1 ML VIAL SC SCH ×2 (08:47→21:00)
[2018-12-07] MEDS: POLYETHYLENE GLYCOL 17 GM PACKET PO SCH (08:47)
--- NOTE | 2018-12-07 13:15 | PN ---
Date/Time of Note Date/Time of Note DATE: 12/07/18 TIME: 12:58 Assessment/Plan VTE Prophylaxis Risk score (from Nsg)>0 risk: 3 SCD applied (from Nsg): Yes Pharmacological prophylaxis: heparin Lines/Catheters IV Catheter Type (from Nrsg): Peripheral IV Urinary Cath still in place: No Assessment/Plan Assessment/Plan 1. Rectal pain with bleeding with rectal wall thickening with perirectal and presacral stranding on CT scan, on Zosyn, pain control 2. h/o Rectal cancer, s/p resection, chemotherapy and radiation, on xeloda now 3. Anemia, chronic, stable 4. DVT prophylaxis; heparin Result Diagram: 12/07/18 0537 12/07/18 0536 Results 24hrs Laboratory Tests Test 12/07/18 05:36 12/07/18 05:37 Sodium Level 137 Potassium Level 3.9 Chloride Level 100 Carbon Dioxide Level 31 Anion Gap 6 Blood Urea Nitrogen 6 L Creatinine 0.76 Est Glomerular Filtrat Rate mL/min > 60 Glucose Level 112 Calcium Level 9.0 White Blood Count 6.6 Red Blood Count 3.29 L Hemoglobin 9.7 L Hematocrit 30.3 L Mean Corpuscular Volume 92.1 Mean Corpuscular Hemoglobin 29.5 Mean Corpuscular Hemoglobin Concent 32.0 Red Cell Distribution Width 15.9 H Platelet Count 337 Mean Platelet Volume 8.9 Immature Granulocytes % 0.600 H Neutrophils % 77.6 H Lymphocytes % 8.2 L Monocytes % 11.8 H Eosinophils % 1.5 Basophils % 0.3 Nucleated Red Blood Cells % 0.0 Immature Granulocytes # 0.040 H Neutrophils # 5.1 Lymphocytes # 0.5 L Monocytes # 0.8 Eosinophils # 0.1 Basophils # 0.0 Nucleated Red Blood Cells # 0.0 Phosphorus Level 3.9 Magnesium Level 2.1 Subjective 24 Hr Interval Summary Free Text/Dictation rectal pain Exam/Review of Systems Exam Vitals Vital Signs Date Temp Pulse Resp B/P (MAP) Pulse Ox O2 O2 Flow FiO2 Time Delivery Rate 12/07/18 98.3 78 20 123/62 97 Room Air 07:51 (82) Intake and Output 12/06/18 12/06/18 12/07/18 1515:00 23:00 07:00 IntakeIntake Total 1330 ml 1050 ml BalanceBalance 1330 ml 1050 ml Constitutional: alert, oriented, well developed Head: normocephalic, atraumatic Eyes: nl conjunctiva, EOMI, nl lids ENMT: nl external ears & nose, nl lips & teeth, nl nasal mucosa & septum Neck: supple, non-tender Respiratory: clear to auscultation, normal air movement; No congested cough, No crackles/rales, No diminished breath sounds, No intercostal retraction, No labored breathing, No respirations, No tactile fremitus, No wheezing, No other Cardiovascular: regular rate and rhythm, nl pulses; No bruits, No diastolic murmur, No edema, No gallop, No irregular rhythm, No jugular venous distention (JVD), No murmurs/extra sounds, No rub, No systolic murmur, No S3, No S4, No other Gastrointestinal: soft, nl liver, spleen, non-tender Musculoskeletal: nl extremities to inspection 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: ADOBE [employer] II-XII intact, nl mental status, nl speech, nl strength Results Results 24hrs Laboratory Tests Test 12/07/18 05:36 12/07/18 05:37 Sodium Level 137 Potassium Level 3.9 Chloride Level 100 Carbon Dioxide Level 31 Anion Gap 6 Blood Urea Nitrogen 6 L Creatinine 0.76 Est Glomerular Filtrat Rate mL/min > 60 Glucose Level 112 Calcium Level 9.0 White Blood Count 6.6 Red Blood Count 3.29 L Hemoglobin 9.7 L Hematocrit 30.3 L Mean Corpuscular Volume 92.1 Mean Corpuscular Hemoglobin 29.5 Mean Corpuscular Hemoglobin Concent 32.0 Red Cell Distribution Width 15.9 H Platelet Count 337 Mean Platelet Volume 8.9 Immature Granulocytes % 0.600 H Neutrophils % 77.6 H Lymphocytes % 8.2 L Monocytes % 11.8 H Eosinophils % 1.5 Basophils % 0.3 Nucleated Red Blood Cells % 0.0 Immature Granulocytes # 0.040 H Neutrophils # 5.1 Lymphocytes # 0.5 L Monocytes # 0.8 Eosinophils # 0.1 Basophils # 0.0 Nucleated Red Blood Cells # 0.0 Phosphorus Level 3.9 Magnesium Level 2.1 Medications Medication Current Medications Amitriptyline HCl (Elavil) 25 mg QHS PO Last administered on 12/06/18at 20:53; Admin Dose 25 MG; Start 12/05/18 at 21:00 Capecitabine (Xeloda) 500 mg BID PO Last administered on 12/05/18 10:54; Admin Dose 500 MG; Start 12/05/18 at 09:00; Status Hold Lorazepam (Ativan) 1 mg HS PRN PO ANXIETY; Start 12/05/18 at 03:00 Sodium Chloride 1,000 ml @ 50 mls/hr Q20H IV Last administered on 12/06/18 21:49; Admin Dose 50 MLS/HR; Start 12/05/18 at 02:39 IV Flush (NS 3 ml) 3 ml PER PROTOCOL IV ; Start 12/05/18 at 03:00 Ondansetron HCl (Zofran Inj) 4 mg Q6H PRN IV NAUSEA/VOMITING Last administered on 12/05/18 21:10; Admin Dose 4 MG; Start 12/05/18 at 03:00 Piperacillin Sod/ Tazobactam Sod 100 ml @ 200 mls/hr Q6 IVPB Last administered on 12/07/18 12:49; Admin Dose 200 MLS/HR; Start 12/05/18 at 03:01 Miscellaneous Information Patients own medicat... BID@10,16 XX ; Start 12/05/18 at 10:00 Metoclopramide HCl (Reglan) 10 mg AC MEALS IV Last administered on 12/07/18 10:54; Admin Dose 10 MG; Start 12/05/18 at 09:00 Heparin Sodium (Porcine) (Heparin (5000 Units/1ml)) 5,000 unit BID SC Last administered on 12/05/18 21:11; Admin Dose 5,000 UNIT; Start 12/05/18 at 21:00 Senna (Senokot) 1 tab BID PO Last administered on 12/07/18 08:46; Admin Dose 1 TAB; Start 12/05/18 at 15:00 Docusate Sodium (Colace) 200 mg BID PO Last administered on 12/07/18 08:46; Admin Dose 200 MG; Start 12/05/18 at 21:00 Nicotine (Nicoderm 21 Mg/ 24hr) 1 patch DAILY TRANSDERM Last administered on 12/07/18 08:47; Admin Dose 1 PATCH; Start 12/05/18 at 15:30 Polyethylene Glycol (Miralax) 17 gm DAILY PO Last administered on 12/07/18 08:47; Admin Dose 17 GM; Start 12/06/18 at 15:00 Hydromorphone HCl (Dilaudid) 2 mg Q2H PRN IV SEVERE PAIN LEVEL 7-10 Last administered on 12/07/18at 12:49; Admin Dose 2 MG; Start 12/06/18 at 18:00 LORELEI NARVAEZ MD Dec 07, 2018 13:08
--- NOTE | 2018-12-07 14:16 | CONS ---
Assessment/Plan Assessment/Plan Hospital Course (Demo Recall) #rectal ca, MSI stable, T3 lesion with perirectal LAD -s/p Xeloda 1500 mg p.o. b.i.d. with radiation . s/p 6 week course completed 2 weeks ago, early -pt does have subscentimeter pulmonary and liver nodules but they are in determinant and difficult to say if they are malignant or not. -10/07/[address] with post surgical changes. no evidence of malignancy -11/30/18 started cycle 2 of Xelox. 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 #Nausea -scheduled weekly hydration with home health -Zofran compazine, reglan are all ordered #Nephrolithiasis and hydronephrosis -s/p lithotripsy. -stent removal of stent #Bladder tumor -this appeared to be a superficial bladder tumor -pathology did not reveal evidence of malignancy #Rectal pain -continue Dilaudid -continue stool softener and bowel regimen Thank you for the opportunity to participate in this patients care Consultation Date/Type/Reason Admit Date/Time Dec 05, 2018 at 00:17 Date of Consultation: Dec 07, 2018 Type of Consult oncology Reason for Consultation rectal cancer Requesting Provider: MILLIE SHIELDS Date/Time of Note DATE: 12/07/18 TIME: 14:11 Hx of Present Illness 43 yo smoker, 1ppd x 25 years, started having upper abdominal discomfort and heartburn about 2 years ago. He also started having intermittent rectal bleeding at that time. Over the last 2 mos his symptoms became worse with daily BRBPR mixed in with stool. 12/25/[address] Ruiz and underwent EGD and colonoscopy onshowing:reflux esophagitis, gastritis with erosions large rectal tumor extending up to 5 cm from anus.Path showed an invasive moderately differentiated adenocarcinoma. 01/14/18 CT C/A/P demonstrates several no nodules measuring 2 mm common 3 mm and 4 mm.nAlso seen is a 3 mm low density lesion in the hepatic dome and a 4 mm posterior 01/14/18 MRI pelvis demonstrates known rectal ca with perirectal adenopathy. 01/18/18 pt underwent ureteroscopy and laser lithotripsy and insertion of a JJ stent and later on removal of the JJ stent, status post resection of bladder tumor 01/27/18 pt started neoadjuvant concurrent chemotherapy with radiation 02/09/18 readmitted for pain to [facility] but discharged without complication 03/2018 admitted for nausea/ vomiting. Ct Brain was done and negative 04/14/18 Ct A/P re demonstrates 2 small nonobstructing left renal calculi largest measuring 0.8cm. rectal wall thickening noted 05/15/18 Pt underwent APR which revealed 5mm residual adenocarcinoma , grade 2, with tumor invading through muscularis propria into the pericolorectal tissue. all margins were uninvolved with disease. all 0/9 LN without disease. post op course was complicated by abscess and bleeding. pt has since recovered 10/07/[address] demonstrates post surgical changes 11/09/17 pt recieved cycle 1 of Xelox . x Constitutional: diaphoresis, poor po Eyes: no complaints ENT: no complaints Respiratory: shortness of breath Cardiovascular: no complaints Gastrointestinal: pain, decreased appetite, nausea Genitourinary: no complaints Musculoskeletal: bone/joint pain Skin: no complaints Neurologic: no complaints Psychological: anxiety, depression Past Medical History Medical History: no pertinent history Home Meds Active Scripts Cephalexin* (Cephalexin*) 500 Mg Capsule, 500 MG PO Q8, #21 CAP Prov:GOKUL TEIXEIRA MD 11/28/18 Hydrocodone/Acetaminophen (Hydrocodone-Acetamin 10-325 mg) 1 Each Tablet, 1 TAB PO Q4H PRN for PAIN 1-6 for 14 Days, #60 TAB Prov:TITUS BLACKWOOD MD 05/24/18 Reported Medications Lorazepam* (Lorazepam*) 1 Mg Tablet, 1 MG PO HS PRN for ANXIETY, #30 TAB 12/04/18 Metoclopramide* (Reglan*) 10 Mg Tablet, 10 MG PO AC MEALS, TAB 12/04/18 Capecitabine* (Xeloda*) 500 Mg Tablet, 500 MG PO BID, TAB 12/04/18 Amitriptyline Hcl* (Amitriptyline Hcl*) 25 Mg Tablet, 25 MG PO QHS for 30 Days, #30 TAB 12/04/18 Hydromorphone Hcl* (Hydromorphone Hcl*) 4 Mg Tablet, 4 MG PO Q4H PRN for PAIN for 8 Days, #90 TAB 12/04/18 Discontinued Reported Medications Hydromorphone Hcl* (Hydromorphone Hcl*) 2 Mg Tablet, 2 MG PO Q4H PRN for PAIN, TAB 06/04/18 Discontinued Scripts Ondansetron Hcl* (Zofran*) 4 Mg Tablet, 4 MG PO Q8H PRN for NAUSEA AND/OR VOMITING, #30 TAB Prov:JAMES SALAZAR MD 08/06/18 Acetaminophen* (Tylenol*) 325 Mg Tablet, 2 TAB PO Q8 PRN for PAIN, #60 TAB Prov:JAMES SALAZAR MD 08/06/18 Ibuprofen* (Motrin*) 400 Mg Tab, 400 MG PO BID PRN for PAIN, #60 TAB Prov:JAMES SALAZAR MD 08/06/18 Lidocaine (Lidoderm) 1 Each Adh..patch, 1 EACH TP TID PRN for PAIN, #1 BOX Prov:JAMES SALAZAR MD 08/06/18 Magaldrate/Simethicone* (Mag-Al Plus Suspension*) 30 Ml Oral.susp, 30 ML PO Q4H PRN for GASTROINTESTINAL UPSET for 14 Days, #1 Prov:TITUS BLACKWOOD MD 05/24/18 Amitriptyline Hcl* (Elavil*) 10 Mg Tab, 10 MG PO HS for 30 Days, TAB Prov:TITUS BLACKWOOD MD 05/24/18 Pantoprazole* (Protonix*) 40 Mg Tablet.dr, 40 MG PO BID for 28 Days, #60 TAB Prov:TITUS BLACKWOOD MD 05/24/18 Trimethobenzamide Hcl* (Tigan*) 300 Mg Capsule, 300 MG PO TID PRN for NAUSEA, #10 CAP Prov:TITUS BLACKWOOD MD 05/24/18 Medications Current Medications Amitriptyline HCl (Elavil) 25 mg QHS PO Last administered on 12/06/18at 20:53; Admin Dose 25 MG; Start 12/05/18 at 21:00 Capecitabine (Xeloda) 500 mg BID PO Last administered on 12/05/18at 10:54; Admin Dose 500 MG; Start 12/05/18 at 09:00; Status Hold Lorazepam (Ativan) 1 mg HS PRN PO ANXIETY; Start 12/05/18 at 03:00 Sodium Chloride 1,000 ml @ 50 mls/hr Q20H IV Last administered on 12/06/18 21:49; Admin Dose 50 MLS/HR; Start 12/05/18 at 02:39 IV Flush (NS 3 ml) 3 ml PER PROTOCOL IV ; Start 12/05/18 at 03:00 Ondansetron HCl (Zofran Inj) 4 mg Q6H PRN IV NAUSEA/VOMITING Last administered on 12/05/18 21:10; Admin Dose 4 MG; Start 12/05/18 at 03:00 Piperacillin Sod/ Tazobactam Sod 100 ml @ 200 mls/hr Q6 IVPB Last administered on 12/07/18 12:49; Admin Dose 200 MLS/HR; Start 12/05/18 at 03:01 Miscellaneous Information Patients own medicat... BID@10 XX ; Start 12/05/18 at 10:00 Metoclopramide HCl (Reglan) 10 mg AC MEALS IV Last administered on 12/07/18 10:54; Admin Dose 10 MG; Start 12/05/18 at 09:00 Heparin Sodium (Porcine) (Heparin (5000 Units/1ml)) 5,000 unit BID SC Last administered on 12/05/18 21:11; Admin Dose 5,000 UNIT; Start 12/05/18 at 21:00 Senna (Senokot) 1 tab BID PO Last administered on 12/07/18 08:46; Admin Dose 1 TAB; Start 12/05/18 at 15:00 Docusate Sodium (Colace) 200 mg BID PO Last administered on 12/07/18 08:46; Admin Dose 200 MG; Start 12/05/18 at 21:00 Nicotine (Nicoderm 21 Mg/ 24hr) 1 patch DAILY TRANSDERM Last administered on 12/07/18 08:47; Admin Dose 1 PATCH; Start 12/05/18 at 15:30 Polyethylene Glycol (Miralax) 17 gm DAILY PO Last administered on 12/07/18 08:47; Admin Dose 17 GM; Start 12/06/18 at 15:00 Hydromorphone HCl (Dilaudid) 2 mg Q2H PRN IV SEVERE PAIN LEVEL 7-10 Last administered on 12/07/18 12:49; Admin Dose 2 MG; Start 12/06/18 at 18:00 Allergies: Coded Allergies: No Known Allergy (Unverified , 12/04/18) Past Surgical History APR as mention in HPI Past Surgical Hx: other Family History Significant Family History: no pertinent family hx Social History Alcohol Use: none Smoking Status: Former smoker Drug Use: none Exam/Review of Systems Exam Vitals Vital Signs Date Temp Pulse Resp B/P (MAP) Pulse Ox O2 O2 Flow FiO2 Time Delivery Rate 12/07/18 98.3 78 20 123/62 97 Room Air 07:51 (82) Intake and Output 12/06/18 12/06/18 12/07/18 1515:00 23:00 07:00 IntakeIntake Total 1330 ml 1050 ml BalanceBalance 1330 ml 1050 ml Constitutional: alert, distress, frail Psych: anxiety, depression Head: normocephalic Eyes: nl conjunctiva ENMT: nl external ears & nose Neck: supple Respiratory: clear to auscultation Cardiovascular: regular rate and rhythm Gastrointestinal: soft Musculoskeletal: nl extremities to inspection Results Result Diagram: 12/07/18 0537 12/07/18 0536 Results 24hrs Laboratory Tests Test 12/07/18 05:36 12/07/18 05:37 Sodium Level 137 Potassium Level 3.9 Chloride Level 100 Carbon Dioxide Level 31 Anion Gap 6 Blood Urea Nitrogen 6 L Creatinine 0.76 Est Glomerular Filtrat Rate mL/min > 60 Glucose Level 112 Calcium Level 9.0 White Blood Count 6.6 Red Blood Count 3.29 L Hemoglobin 9.7 L Hematocrit 30.3 L Mean Corpuscular Volume 92.1 Mean Corpuscular Hemoglobin 29.5 Mean Corpuscular Hemoglobin Concent 32.0 Red Cell Distribution Width 15.9 H Platelet Count 337 Mean Platelet Volume 8.9 Immature Granulocytes % 0.600 H Neutrophils % 77.6 H Lymphocytes % 8.2 L Monocytes % 11.8 H Eosinophils % 1.5 Basophils % 0.3 Nucleated Red Blood Cells % 0.0 Immature Granulocytes # 0.040 H Neutrophils # 5.1 Lymphocytes # 0.5 L Monocytes # 0.8 Eosinophils # 0.1 Basophils # 0.0 Nucleated Red Blood Cells # 0.0 Phosphorus Level 3.9 Magnesium Level 2.1 Medications Medication Current Medications Amitriptyline HCl (Elavil) 25 mg QHS PO Last administered on 12/06/18at 20:53; Admin Dose 25 MG; Start 12/05/18 at 21:00 Capecitabine (Xeloda) 500 mg BID PO Last administered on 12/05/18 10:54; Admin Dose 500 MG; Start 12/05/18 at 09:00; Status Hold Lorazepam (Ativan) 1 mg HS PRN PO ANXIETY; Start 12/05/18 at 03:00 Sodium Chloride 1,000 ml @ 50 mls/hr Q20H IV Last administered on 12/06/18 21:49; Admin Dose 50 MLS/HR; Start 12/05/18 at 02:39 IV Flush (NS 3 ml) 3 ml PER PROTOCOL IV ; Start 12/05/18 at 03:00 Ondansetron HCl (Zofran Inj) 4 mg Q6H PRN IV NAUSEA/VOMITING Last administered on 12/05/18 21:10; Admin Dose 4 MG; Start 12/05/18 at 03:00 Piperacillin Sod/ Tazobactam Sod 100 ml @ 200 mls/hr Q6 IVPB Last administered on 12/07/18 12:49; Admin Dose 200 MLS/HR; Start 12/05/18 at 03:01 Miscellaneous Information Patients own medicat... BID@10,16 XX ; Start 12/05/18 at 10:00 Metoclopramide HCl (Reglan) 10 mg AC MEALS IV Last administered on 12/07/18 10:54; Admin Dose 10 MG; Start 12/05/18 at 09:00 Heparin Sodium (Porcine) (Heparin (5000 Units/1ml)) 5,000 unit BID SC Last administered on 12/05/18 21:11; Admin Dose 5,000 UNIT; Start 12/05/18 at 21:00 Senna (Senokot) 1 tab BID PO Last administered on 12/07/18 08:46; Admin Dose 1 TAB; Start 12/05/18 at 15:00 Docusate Sodium (Colace) 200 mg BID PO Last administered on 12/07/18 08:46; Admin Dose 200 MG; Start 12/05/18 at 21:00 Nicotine (Nicoderm 21 Mg/ 24hr) 1 patch DAILY TRANSDERM Last administered on 12/07/18 08:47; Admin Dose 1 PATCH; Start 12/05/18 at 15:30 Polyethylene Glycol (Miralax) 17 gm DAILY PO Last administered on 12/07/18at 08:47; Admin Dose 17 GM; Start 12/06/18 at 15:00 Hydromorphone HCl (Dilaudid) 2 mg Q2H PRN IV SEVERE PAIN LEVEL 7-10 Last administered on 12/07/18at 12:49; Admin Dose 2 MG; Start 12/06/18 at 18:00 MIMI ZENDEJAS M.D. Dec 07, 2018 14:16
[2018-12-07 14:51] VITALS: BP 120/64; PULSE 72; RESP 20
[2018-12-07 20:00] VITALS: BP 101/59; PULSE 82; RESP 19
[2018-12-07] MEDS: SOD CHLORIDE 0.9% 1,000 ML IV SCH (21:07)
[2018-12-07] MEDS: AMITRIPTYLINE 25 MG TAB PO SCH (21:09)
[2018-12-08] MEDS: PIPER-TAZO 3.375 GM IV (PMX) 100 ML IVPB SCH ×3 (00:57→10:58)
[2018-12-08] MEDS: HYDROmorphONE 2 MG/ML SYG IV PRN ×8 (01:00→14:44)
[2018-12-08 02:00] VITALS: BP 114/58; PULSE 74; RESP 19
[2018-12-08] MEDS: METOCLOPRAMIDE 10 MG INJ IV SCH ×2 (07:06→10:52)
[2018-12-08 08:00] VITALS: BP 120/60; PULSE 83; RESP 18
[2018-12-08] MEDS: DOCUSATE SODIUM 100 MG CAP PO SCH (08:55)
[2018-12-08] MEDS: SENNA TAB PO SCH (08:55)
[2018-12-08] MEDS: NICOTINE (21 MG/24 HR) PATCH TRANSDERM SCH (08:56)
[2018-12-08] MEDS: POLYETHYLENE GLYCOL 17 GM PACKET PO SCH (08:56)
[2018-12-08] MEDS: HEPARIN 5,000 UNIT/1 ML VIAL SC SCH (09:00)
[2018-12-08] MEDS: SOD CHLORIDE 0.9% 1,000 ML IV SCH (10:39)
[2018-12-08] MEDS ORDERED: AMOX1TAB10 PO (11:47)
--- NOTE | 2018-12-08 12:02 | DS ---
Date/Time of Note Date/Time of Note DATE: 12/08/18 TIME: 11:55 Discharge Summary Admission/Discharge Info Admit Date/Time Dec 05, 2018 at 00:17 Discharge Date/Time Discharge Diagnosis 1. Rectal pain, pain management 2. h/o Rectal cancer, s/p resection, chemotherapy and radiation, on xeloda now 3. Anemia, chronic, stable Patient Condition: Stable Hospital Course Patient is a male with a past medical history significant for rectal carcinoma undergoing chemotherapy status post resection who presents to the [facility] for worsening abdominal and rectal pain. Patient is on chronic pain medication due to his rectal cancer however states that this particular pain has been worsening. The pain is not new but it is more severe than before. Patient states that he occasionally has bleeding from his rectum, however it appears that today it has stopped, last time his rectum was bleeding was yesterday. Patient complains of severe abdominal rectal pain and right flank pain. Patient has not gotten ill recently and follows up with all his doctors on a normal basis. Patient describes nausea and vomiting that is nonbloody. Patient denies chills, cough, chest pain, shortness of breath, leg pain. CT scan indicates mild to moderate rectal wall thickening with perirectal and presacral stranding, unchanged from 11/05/2018, clinically there is no evidence of infection. I will not put him on antibiotics on discharge. Oncology consultation with Dr. Mccoy, rectal ca, MSI stable, T3 lesion with perirectal LAD, s/p Xeloda 1500 mg p.o. b.i.d. with radiation . s/p 6 week course completed 2 weeks ago, early . He does have subscentimeter pulmonary and liver nodules but they are in determinant and difficult to say if they are malignant or not. On 10/07/[address] with post surgical changes. no evidence of malignancy. On 11/30/18 started cycle 2 of Xelox. 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 Patient will be discharged on dilaudid and norco prn for rectal pain. PROCEDURE: CT abdomen pelvis without contrast CLINICAL INDICATION: Abdominal pain TECHNIQUE: Noncontrast multiplanar images are reviewed . CT D volume 6.2mGy, DLP 363mGy COMPARISON: November 28, 2018 FINDINGS: Evaluation of the lung bases demonstrates no pleural or parenchymal disease. Abdomen: The liver is increased in size. There is no focal mass or dilatation of the biliary tree. The gallbladder is not distended. The spleen, pancreas and bilateral adrenal glands are within normal limits. Bilateral kidneys are normal in size with symmetric enhancement. There is no focal mass, hydronephrosis or hydroureter. There is no retroperitoneal adenopathy. The abdominal aorta is of normal caliber with scattered atherosclerotic calcifications. There are small bowel anastomotic sutures within the mid to right abdomen. There is moderate retained stool within the colon. There is mild to moderate rectal wall thickening with perirectal and presacral stranding. There is no bowel obstruction or free air. A normal appendix is partially visualized. There is no diverticulosis or diverticulitis. There is no ascites. Pelvis: The bladder demonstrates mild wall thickening. The prostate and seminal vesicles are within normal limits. There is no significant pelvic adenopathy or free fluid. Evaluation of the osseous structures demonstrates no suspicious lytic or blastic lesion. IMPRESSION: Mild to moderate rectal wall thickening with perirectal and presacral stranding, unchanged from 11/05/2018. Moderate retained stool within the colon. Mild bladder wall thickening could suggest cystitis. Clinical correlation is needed. Mild hepatomegaly. Vascular calcifications reflective of atherosclerosis. RPTAT: HPPP Physician Sravani Date Time Electronically viewed and signed by Salvador Vang Physician on 12/05/2018 02:53 RP/ CC: MATEO LOW MD [id number] Home Meds Active Scripts Hydrocodone/Acetaminophen (Hydrocodone-Acetamin 10-325 mg) 1 Each Tablet, 1 TAB PO Q4H PRN for PAIN 1-6 for 14 Days, #60 TAB Prov:TITUS BLACKWOOD MD 05/24/18 Reported Medications Lorazepam* (Lorazepam*) 1 Mg Tablet, 1 MG PO HS PRN for ANXIETY, #30 TAB 12/04/18 Metoclopramide* (Reglan*) 10 Mg Tablet, 10 MG PO AC MEALS, TAB 12/04/18 Capecitabine* (Xeloda*) 500 Mg Tablet, 500 MG PO BID, TAB 12/04/18 Amitriptyline Hcl* (Amitriptyline Hcl*) 25 Mg Tablet, 25 MG PO QHS for 30 Days, #30 TAB 12/04/18 Hydromorphone Hcl* (Hydromorphone Hcl*) 4 Mg Tablet, 4 MG PO Q4H PRN for PAIN for 8 Days, #90 TAB 12/04/18 Discontinued Reported Medications Hydromorphone Hcl* (Hydromorphone Hcl*) 2 Mg Tablet, 2 MG PO Q4H PRN for PAIN, TAB 06/04/18 Discontinued Scripts Cephalexin* (Cephalexin*) 500 Mg Capsule, 500 MG PO Q8, #21 CAP Prov:GOKUL TEIXEIRA MD 11/28/18 Ondansetron Hcl* (Zofran*) 4 Mg Tablet, 4 MG PO Q8H PRN for NAUSEA AND/OR VOMITING, #30 TAB Prov:JAMES SALAZAR MD 08/06/18 Acetaminophen* (Tylenol*) 325 Mg Tablet, 2 TAB PO Q8 PRN for PAIN, #60 TAB Prov:JAMES SALAZAR MD 08/06/18 Ibuprofen* (Motrin*) 400 Mg Tab, 400 MG PO BID PRN for PAIN, #60 TAB Prov:JAMES SALAZAR MD 08/06/18 Lidocaine (Lidoderm) 1 Each Adh..patch, 1 EACH TP TID PRN for PAIN, #1 BOX Prov:JAMES SALAZAR MD 08/06/18 Magaldrate/Simethicone* (Mag-Al Plus Suspension*) 30 Ml Oral.susp, 30 ML PO Q4H PRN for GASTROINTESTINAL UPSET for 14 Days, #1 Prov:TITUS BLACKWOOD MD 05/24/18 Amitriptyline Hcl* (Elavil*) 10 Mg Tab, 10 MG PO HS for 30 Days, TAB Prov:TITUS BLACKWOOD MD 05/24/18 Pantoprazole* (Protonix*) 40 Mg Tablet.dr, 40 MG PO BID for 28 Days, #60 TAB Prov:TITUS BLACKWOOD MD 05/24/18 Trimethobenzamide Hcl* (Tigan*) 300 Mg Capsule, 300 MG PO TID PRN for NAUSEA, #10 CAP Prov:TITUS BLACKWOOD MD 05/24/18 Follow-up Plan PCP and oncology in one week Primary Care Provider Not On Staff Doctor LORELEI NARVAEZ MD Dec 08, 2018 12:02
--- NOTE | 2018-12-08 14:48 | CONS ---
Assessment/Plan Assessment/Plan Hospital Course (Demo Recall) #rectal ca, MSI stable, T3 lesion with perirectal LAD -s/p Xeloda 1500 mg p.o. b.i.d. with radiation . s/p 6 week course completed 2 weeks ago, early -pt does have subscentimeter pulmonary and liver nodules but they are in determinant and difficult to say if they are malignant or not. -10/07/[address] with post surgical changes. no evidence of malignancy -11/30/18 started cycle 2 of Xelox. 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 #Nausea -scheduled weekly hydration with home health -Zofran compazine, reglan are all ordered -pt feels better. ok for dc from heme standpoint #Nephrolithiasis and hydronephrosis -s/p lithotripsy. -stent removal of stent #Bladder tumor -this appeared to be a superficial bladder tumor -pathology did not reveal evidence of malignancy #Rectal pain -continue Dilaudid -continue stool softener and bowel regimen Thank you for the opportunity to participate in this patients care Consultation Date/Type/Reason Admit Date/Time Dec 05, 2018 at 00:17 Initial Consult Date 12/07/18 Type of Consult oncology Reason for Consultation colon cancer Requesting Provider: MILLIE SHIELDS Date/Time of Note DATE: 12/08/18 TIME: 14:48 24 HR Interval Summary Free Text/Dictation no acute overnight events Exam/Review of Systems Exam Vitals Vital Signs Date Temp Pulse Resp B/P (MAP) Pulse Ox O2 O2 Flow FiO2 Time Delivery Rate 12/08/18 98.6 83 18 120/60 96 08:00 (80) 12/07/18 Room Air 14:51 Intake and Output 12/07/18 12/07/18 12/08/18 1515:00 23:00 07:00 IntakeIntake Total 1160 ml 1050 ml 475 ml OutputOutput Total 300 ml BalanceBalance 860 ml 1050 ml 475 ml Constitutional: alert, oriented Psych: no complaints Head: normocephalic Eyes: nl conjunctiva ENMT: nl external ears & nose Neck: supple Respiratory: clear to auscultation Cardiovascular: regular rate and rhythm Gastrointestinal: soft Musculoskeletal: nl extremities to inspection Results Result Diagram: 12/07/18 0537 12/07/18 0536 Medications Medication Current Medications Amitriptyline HCl (Elavil) 25 mg QHS PO Last administered on 12/07/18 21:09; Admin Dose 25 MG; Start 12/05/18 at 21:00 Capecitabine (Xeloda) 500 mg BID PO Last administered on 12/05/18 10:54; Admin Dose 500 MG; Start 12/05/18 at 09:00; Status Hold Lorazepam (Ativan) 1 mg HS PRN PO ANXIETY; Start 12/05/18 at 03:00 Sodium Chloride 1,000 ml @ 50 mls/hr Q20H IV Last administered on 12/07/18 21:07; Admin Dose 50 MLS/HR; Start 12/05/18 at 02:39 IV Flush (NS 3 ml) 3 ml PER PROTOCOL IV ; Start 12/05/18 at 03:00 Ondansetron HCl (Zofran Inj) 4 mg Q6H PRN IV NAUSEA/VOMITING Last administered on 12/05/18 21:10; Admin Dose 4 MG; Start 12/05/18 at 03:00 Piperacillin Sod/ Tazobactam Sod 100 ml @ 200 mls/hr Q6 IVPB Last administered on 12/08/18 10:58; Admin Dose 200 MLS/HR; Start 12/05/18 at 03:01 Miscellaneous Information Patients own medicat... BID@10,16 XX ; Start 12/05/18 at 10:00 Metoclopramide HCl (Reglan) 10 mg AC MEALS IV Last administered on 12/08/18 10:52; Admin Dose 10 MG; Start 12/05/18 at 09:00 Heparin Sodium (Porcine) (Heparin (5000 Units/1ml)) 5,000 unit BID SC Last administered on 12/05/18 21:11; Admin Dose 5,000 UNIT; Start 12/05/18 at 21:00 Senna (Senokot) 1 tab BID PO Last administered on 12/08/18 08:55; Admin Dose 1 TAB; Start 12/05/18 at 15:00 Docusate Sodium (Colace) 200 mg BID PO Last administered on 12/08/18 08:55; Admin Dose 200 MG; Start 12/05/18 at 21:00 Nicotine (Nicoderm 21 Mg/ 24hr) 1 patch DAILY TRANSDERM Last administered on 12/08/18 08:56; Admin Dose 1 PATCH; Start 12/05/18 at 15:30 Polyethylene Glycol (Miralax) 17 gm DAILY PO Last administered on 12/08/18 08:56; Admin Dose 17 GM; Start 12/06/18 at 15:00 Hydromorphone HCl (Dilaudid) 2 mg Q2H PRN IV SEVERE PAIN LEVEL 7-10 Last administered on 12/08/18 14:44; Admin Dose 2 MG; Start 12/06/18 at 18:00 MIMI ZENDEJAS M.D. Dec 08, 2018 14:48
[2018-12-08 15:00] VITALS: BP 118/60; PULSE 80; RESP 18
== END 2018-12-08 14:50 | disposition home or self-care (01) | DRG 378 ==
LOC: E/R 21:17 → PP2 12-05 00:17
PROVIDERS: ADMIT Internal Medicine; ATTEND Hospitalist
DX: K62.5 Hemorrhage of anus and rectum (principal); K56.7 Ileus, unspecified; C20 Malignant neoplasm of rectum; N13.2 Hydronephrosis with renal and ureteral calculous obstruction; K62.89 Other specified diseases of anus and rectum; Z79.899 Other long term (current) drug therapy; R10.84 Generalized abdominal pain; R11.2 Nausea with vomiting, unspecified; D50.0 Iron deficiency anemia secondary to blood loss (chronic)
CPT/HCPCS: 36415; 74176; 76705; 80048; 80053; 81003; 83605; 83690; 83735; 84100; 85025; 87040; 96374; 96375; 96376; J1170; J1644; J2405; J2543; J2765; J7030

== ENCOUNTER 2018-12-28 17:07 | Inpatient (IN) | payer OTHER ==
[~2018-12-28] VITALS: Ht 177.8 cm; Wt 67.1 kg
[~2018-12-28 17:07] MED LIST changes: -ACET325T33 PO; -AMI10 PO; +AMIT25TA9 PO; +CAPE500T17 PO; -CEPH500C PO; -HYDR2TAB3 PO; +HYDR4TAB PO; -IBUP-1561 PO; -LIDO700A29 TP; +LORA1TAB PO; +METO10TA92 PO; -ONDA4TAB8 PO; -PANT40TA3 PO; -TRIM300C16 PO; -UDMYL PO
--- NOTE | 2018-12-28 18:05 | ERD ---
ER Documentation Chief Complaint Chief Complaint vomiting HPI The patient is a 43-year-old male, presenting to the ER because of multiple times today, mostly mucus, nonbloody/nonbilious. He was taken to [facility] ER where he was treated with Dilaudid and Zofran. He then left AGAINST MEDICAL ADVICE around 3 PM to go home. He was then taken to [facility] emergency department because of recurrent abdominal pain. He had similar symptoms previously, denies fever, chills, neck pain, chest pain, dyspnea, dysuria. He smokes, denies drinking Past medical history: Anxiety, chronic pain syndrome, chronic rectal pain, chronic abdominal pain history of rectal carcinoma treated with resection/chemo/radiation ROS All systems reviewed and are negative except as per history of present illness. Medications Home Meds Active Scripts Hydrocodone/Acetaminophen (Hydrocodone-Acetamin 10-325 mg) 1 Each Tablet, 1 TAB PO Q4H PRN for PAIN 1-6 for 14 Days, #60 TAB Prov:TITUS BLACKWOOD MD 05/24/18 Reported Medications Lorazepam* (Lorazepam*) 1 Mg Tablet, 1 MG PO HS PRN for ANXIETY, #30 TAB 12/04/18 Metoclopramide* (Reglan*) 10 Mg Tablet, 10 MG PO AC MEALS, TAB 12/04/18 Capecitabine* (Xeloda*) 500 Mg Tablet, 500 MG PO BID, TAB 12/04/18 Amitriptyline Hcl* (Amitriptyline Hcl*) 25 Mg Tablet, 25 MG PO QHS for 30 Days, #30 TAB 12/04/18 Hydromorphone Hcl* (Hydromorphone Hcl*) 4 Mg Tablet, 4 MG PO Q4H PRN for PAIN for 8 Days, #90 TAB 12/04/18 Allergies Allergies: Coded Allergies: No Known Allergy (Unverified , 12/04/18) PMhx/Soc History of Surgery: Yes Anesthesia Reaction: No Hx 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 Disorder: No Hx Respiratory Disorders: No Hx Cardiac Disorders: No Hx Psychiatric Problems: No Hx Miscellaneous Medical Probl: No Hx Alcohol Use: No Hx Substance Use: No Hx Tobacco Use: Yes Physical Exam Vitals Vital Signs Date Temp Pulse Resp B/P (MAP) Pulse Ox O2 O2 Flow FiO2 Time Delivery Rate 12/28/18 54 18 147/64 100 Room Air 17:50 (91) 12/28/18 99.9 61 20 181/102 98 17:21 (128) Physical Exam Const: No acute distress. Head: Atraumatic. Eyes: Normal Conjunctiva. ENT: Normal External Ears, Nose and Mouth. Neck: Full range of motion. No meningismus. Resp: Clear to auscultation bilaterally. Cardio: Regular rate and rhythm. Abd: Soft, non distended, normal bowel sounds, vague and diffuse abdominal discomfort, no rigidity/rebound/CVA tenderness Skin: No petechiae or rashes. Back: No midline or flank tenderness. Ext: No cyanosis, or edema. Neur: Awake and alert. No focal deficit Psych: Normal Mood and Affect. Result Diagram: 12/28/18 1749 12/28/18 1749 Results 24 hrs Laboratory Tests Test 12/28/18 17:49 12/28/18 19:56 White Blood Count 9.9 10^3/ul Red Blood Count 4.04 10^6/ul Hemoglobin 11.9 g/dl Hematocrit 37.7 % Mean Corpuscular Volume 93.3 fl Mean Corpuscular Hemoglobin 29.5 pg Mean Corpuscular Hemoglobin Concent 31.6 g/dl Red Cell Distribution Width 18.8 % Platelet Count 389 10^3/UL Mean Platelet Volume 9.3 fl Immature Granulocytes % 0.700 % Neutrophils % 90.5 % Lymphocytes % 5.3 % Monocytes % 3.1 % Eosinophils % 0.1 % Basophils % 0.3 % Nucleated Red Blood Cells % 0.0 /100WBC Immature Granulocytes # 0.070 10^3/ul Neutrophils # 8.9 10^3/ul Lymphocytes # 0.5 10^3/ul Monocytes # 0.3 10^3/ul Eosinophils # 0.0 10^3/ul Basophils # 0.0 10^3/ul Nucleated Red Blood Cells # 0.0 10^3/ul Sodium Level 145 mmol/L Potassium Level 4.3 mmol/L Chloride Level 105 mmol/L Carbon Dioxide Level 28 mmol/L Anion Gap 12 Blood Urea Nitrogen 13 mg/dl Creatinine 0.75 mg/dl Est Glomerular Filtrat Rate mL/min > 60 mL/min Glucose Level 140 mg/dl Calcium Level 10.1 mg/dl Total Bilirubin 0.3 mg/dl Direct Bilirubin 0.00 mg/dl Indirect Bilirubin 0.3 mg/dl Aspartate Amino Transf (AST/SGOT) 26 IU/L Alanine Aminotransferase (ALT/SGPT) 12 IU/L Alkaline Phosphatase 161 IU/L Total Protein 8.3 g/dl Albumin 4.2 g/dl Globulin 4.10 g/dl Albumin/Globulin Ratio 1.02 Lipase 15 U/L Bedside Urine pH (LAB) 8.5 Bedside Urine Protein (LAB) Trace Bedside Urine Glucose (UA) Negative Bedside Urine Ketones (LAB) Trace Bedside Urine Blood Negative Bedside Urine Nitrite (LAB) Negative Bedside Urine Leukocyte Esterase (L Negative Current Medications Medications Dose Sig/Devan Start Time Status Last (Trade) Ordered Route PRN Stop Time Admin Dose Reason Admin 1 mg ONCE STAT 12/28/18 DC 12/28/18 Hydromorphone IV 18:13 18:31 HCl 12/28/18 18:16 (Dilaudid) Ondansetron 4 mg ONCE STAT 12/28/18 DC 12/28/18 HCl (Zofran IV 18:13 18:29 Inj) 12/28/18 18:16 1 mg ONCE STAT 12/28/18 DC 12/28/18 Hydromorphone IV 19:53 20:18 HCl 12/28/18 19:55 (Dilaudid) Procedures/MDM Abdominopelvic CT report is pending MEDICAL MAKING DECISION: The patient is 43-year-old male, presenting with acute on chronic abdominal pain of unclear etiology, intractable vomiting, was treated with Dilaudid 1 mg IV x2 for pain, Zofran 4 mg for nausea with good response. The differential diagnoses considered include but are not limited to adverse effect from chemotherapy, adhesion, cholelithiasis, cholecystitis, choledo cholithiasis, cholangitis, pancreatitis, hepatitis, gastritis, peptic ulcer disease, gastric ulcer, appendicitis, cystitis, diverticulitis, partial small bowel obstruction. Departure Diagnosis: Primary Impression: Intractable vomiting Additional Impression: Abdominal pain Comments The patient's blood pressure was elevated (>120/80) but appears stable without evidence of hypertension emergency or urgency. The patient was counseled about the risks of hypertension and urged to pursue outpatient monitoring and therapy within a week with their primary care physician. I discussed the findings with the patient. I discussed the patient with the hospitalist Dr Porter at 8:20pm who was made aware of the lab, the treatment, the patient condition, pending CT. The patient is admitted to [facility] Disclaimer: Inadvertent spelling and grammatical errors are likely due to EHR/dictation software use and do not reflect on the overall quality of patient care. Also, please note that the electronic time recorded on this note does not necessarily reflect the actual time of the patient encounter. CHRISTOPH CARRERA MD Dec 28, 2018 18:05
[2018-12-28] MEDS ORDERED: HYDROmorphONE 1 MG/ML SYG IV STA (18:13)
[2018-12-28] MEDS ORDERED: ONDANSETRON 4 MG INJ IV STA (18:13)
[2018-12-28] MEDS ORDERED: HYDROmorphONE 0.5 MG/0.5 ML SYG IV STA ×2 (19:53→21:05)
[2018-12-28] MEDS ORDERED: ONDANSETRON 4 MG INJ IV PRN (21:30)
[2018-12-28] MEDS ORDERED: PANT40TA4 PO (22:38)
[2018-12-28] MEDS ORDERED: PROC10TA10 PO (22:38)
[2018-12-28] MEDS ORDERED: SENN8.6T78 PO (22:38)
[2018-12-28] MEDS ORDERED: DOCU-210 PO (22:38)
[2018-12-28 22:48] VITALS: BP 141/69; PULSE 65; RESP 16
[2018-12-28 23:29] VITALS: Ht 177.8 cm; Wt 67.1 kg
[2018-12-28] MEDS ORDERED: ACETAMINOPHEN 325 MG TAB PO PRN (23:30)
[2018-12-28] MEDS: HYDROmorphONE 0.5 MG/0.5 ML SYG IV PRN (23:36)
[2018-12-29] MEDS ORDERED: ALPRAZOLAM 1 MG TAB PO ONE (00:30)
[2018-12-29] MEDS ORDERED: ONDANSETRON 4 MG INJ IV PRN (00:30)
[2018-12-29] MEDS ORDERED: HYDROmorphONE 4 MG TAB PO PRN (00:30)
[2018-12-29] MEDS ORDERED: CAPECITABINE 500 MG TAB PO SCH ×4 (00:30→12:45)
[2018-12-29] MEDS ORDERED: NACL 0.9% 3 ML SYG IV SCH (00:30)
[2018-12-29] MEDS ORDERED: LORAZEPAM 1 MG TAB PO PRN (00:30)
[2018-12-29] MEDS ORDERED: HYDROCODONE/APAP (5/325) TAB PO PRN ×2 (00:30)
[2018-12-29 01:11] VITALS: BP 153/83; PULSE 53; RESP 16
[2018-12-29] MEDS: morphine 2 MG INJ IV PRN ×3 (01:16→10:08)
[2018-12-29] MEDS: HYDROmorphONE 0.5 MG/0.5 ML SYG IV PRN ×2 (04:44→09:00)
[2018-12-29] MEDS: PANTOPRAZOLE (EC) 40 MG TAB PO SCH (05:31)
[2018-12-29] MEDS ORDERED: HYDROmorphONE 2 MG/ML SYG IV STA (06:18)
[2018-12-29] MEDS ORDERED: ONDANSETRON 4 MG INJ IV STA (06:18)
--- NOTE | 2018-12-29 06:39 | HP ---
Date/Time of Note Date/Time of Note DATE: 12/29/18 TIME: 06:20 Assessment/Plan VTE Prophylaxis SCD applied (from Nsg): Yes Pharmacological prophylaxis: other Lines/Catheters IV Catheter Type (from Nrsg): Saline Lock Assessment/Plan Assessment/Plan 1. Abdominal pain with nausea and vomiting: Could be related to inflammation of the colon/rectum from cancer treatment -Patient's reported level of pain however does not correlate with physical exam finding or the CT scan finding. He is on oral Dilaudid at home and currently asking for a 2 mg of Dilaudid every 2 hours. -We will resume home pain medications. As needed IV medication will be given -Will contact Dr. Mims, pain specialist 2. Colorectal cancer, diagnosed in Nov: Status post surgery, currently undergoing chemo -Contact his oncologist Result Diagram: 12/29/18 0454 12/28/18 1749 Results 24hrs Laboratory Tests Test 12/28/18 17:49 12/28/18 19:56 12/29/18 04:54 White Blood Count 9.9 # 8.0 Red Blood Count 4.04 #L 4.01 L Hemoglobin 11.9 #L 11.8 L Hematocrit 37.7 #L 37.4 L Mean Corpuscular Volume 93.3 93.3 Mean Corpuscular Hemoglobin 29.5 29.4 Mean Corpuscular Hemoglobin Concent 31.6 L 31.6 L Red Cell Distribution Width 18.8 H 19.3 H Platelet Count 389 411 Mean Platelet Volume 9.3 9.2 Immature Granulocytes % 0.700 H 0.800 H Neutrophils % 90.5 H 72.1 Lymphocytes % 5.3 L 14.5 L Monocytes % 3.1 11.9 H Eosinophils % 0.1 0.3 Basophils % 0.3 0.4 Nucleated Red Blood Cells % 0.0 0.0 Immature Granulocytes # 0.070 H 0.060 H Neutrophils # 8.9 H 5.7 Lymphocytes # 0.5 L 1.2 Monocytes # 0.3 1.0 H Eosinophils # 0.0 0.0 Basophils # 0.0 0.0 Nucleated Red Blood Cells # 0.0 0.0 Sodium Level 145 H Potassium Level 4.3 Chloride Level 105 Carbon Dioxide Level 28 Anion Gap 12 Blood Urea Nitrogen 13 Creatinine 0.75 Est Glomerular Filtrat Rate mL/min > 60 Glucose Level 140 Calcium Level 10.1 Total Bilirubin 0.3 Direct Bilirubin 0.00 Indirect Bilirubin 0.3 Aspartate Amino Transf (AST/SGOT) 26 Alanine Aminotransferase (ALT/SGPT) 12 L Alkaline Phosphatase 161 H Total Protein 8.3 H Albumin 4.2 Globulin 4.10 H Albumin/Globulin Ratio 1.02 Lipase 15 L Bedside Urine pH (LAB) 8.5 Bedside Urine Protein (LAB) Trace H Bedside Urine Glucose (UA) Negative Bedside Urine Ketones (LAB) Trace H Bedside Urine Blood Negative Bedside Urine Nitrite (LAB) Negative Bedside Urine Leukocyte Esterase (L Negative HPI/ROS Admit Date/Time Admit Date/Time Dec 28, 2018 at 20:23 Hx of Present Illness This is a 43-year-old male with a history of colorectal cancer diagnosed in November 2017, status post surgical resection and currently under going on chemo. He presents to the ER complaining of severe abdominal pain as well as nausea and vomiting. Patient has been dealing with this for quite some time now. He said over the past few days the symptoms become so severe. He went [facility] yesterday and was treated with pain medications and antiemetics. He left [place] and went home. When the pain recurs, he was brought to [facility]. He said he has been vomiting multiple times a day, with emesis described as nonbloody, but occasionally bilious. He also reported rectal pain with defecation. Of note, patient is on Dilaudid at home and he seems to have high tolerance. Documentation from previous visit here shows that patient has taken almost 70 mg of Dilaudid in 1 day. Currently patient is asking to be placed on Dilaudid 2mg IV every 2 hours. I discussed with him about the side effect of such high-dose narcotic. He is willing to discuss with our pain specialist. When he presented to the ER, CT abdomen/pelvis showed the following: Extensive rectal wall thickening and presacral fat infiltration, unchanged since 12/05/2018. This could be further evaluated with contrast-enhanced MRI if clinically warranted. Multiple nonobstructing stones in both kidneys measuring up to 4 mm on the left. There is no hydronephrosis. Normal appendix. Evidence of small bowel surgery in the left pelvis. Mild atherosclerotic arterial calcifications. . PMH/Family/Social Past Medical History Medical History: other (See HPI) Medications Current Medications Ondansetron HCl (Zofran Inj) 4 mg Q6 PRN IV nausea vomit Last administered on 12/28/18at 21:56; Admin Dose 4 MG; Start 12/28/18 at 21:30 Hydromorphone HCl (Dilaudid) 0.5 mg Q3H PRN IV SEVERE PAIN LEVEL 7-10 Last administered on 12/29/18at 04:44; Admin Dose 0.5 MG; Start 12/28/18 at 23:30 Acetaminophen (Tylenol Tab) 650 mg Q6H PRN PO MILD PAIN(1-3)OR ELEVATED TEMP; Start 12/28/18 at 23:30 IV Flush (NS 3 ml) 3 ml PER PROTOCOL IV ; Start 12/29/18 at 00:30 Ondansetron HCl (Zofran Inj) 4 mg Q6H PRN IV NAUSEA/VOMITING Last administered on 12/29/18at 04:44; Admin Dose 4 MG; Start 12/29/18 at 00:30 Acetaminophen/ Hydrocodone Bitart (Welch (5/325)) 1 tab Q6H PRN PO .MOD PAIN 4- 6; Start 12/29/18 at 00:30 Acetaminophen/ Hydrocodone Bitart (Welch (5/325)) 2 tab Q6H PRN PO .SEVERE PAIN 7-10; Start 12/29/18 at 00:30 Morphine Sulfate (morphine) 2 mg Q4H PRN IV .SEVERE PAIN 7-10 Last administered on 12/29/18at 05:30; Admin Dose 2 MG; Start 12/29/18 at 00:30 Amitriptyline HCl (Elavil) 25 mg QHS PO ; Start 12/29/18 at 21:00 Docusate Sodium (Colace) 100 mg BID PO ; Start 12/29/18 at 09:00 Hydromorphone HCl (Dilaudid) 4 mg Q4H PRN PO PAIN; Start 12/29/18 at 00:30 Lorazepam (Ativan) 1 mg HS PRN PO ANXIETY; Start 12/29/18 at 00:30 Pantoprazole (Protonix Tab) 40 mg DAILY@0600 PO Last administered on 12/29/18at 05:31; Admin Dose 40 MG; Start 12/29/18 at 06:00 Prochlorperazine (Compazine) 10 mg DAILY PO ; Start 12/29/18 at 09:00 Senna (Senokot) 1 tab BID PO ; Start 12/29/18 at 09:00 Capecitabine (Xeloda) 500 mg BID WITH MEALS PO ; Start 12/29/18 at 07:50 Coded Allergies: No Known Allergy (Unverified , 12/28/18) Past Surgical History Past Surgical Hx: other (See HPI) Family History Significant Family History: no pertinent family hx Social History Alcohol Use: none Smoking Status: Current every day smoker Drug Use: none Exam/Review of Systems Vital Signs Vitals Vital Signs Date Temp Pulse Resp B/P (MAP) Pulse Ox O2 O2 Flow FiO2 Time Delivery Rate 12/29/18 98.8 53 16 153/83 96 Room Air 01:11 (106) Intake and Output 12/28/18 12/28/18 12/29/18 1515:00 23:00 07:00 IntakeIntake Total 800 ml BalanceBalance 800 ml Exam Constitutional: other (No acute distress noted) Head: normocephalic, atraumatic Eyes: EOMI, PERRL Respiratory: clear to auscultation, normal air movement Cardiovascular: regular rate and rhythm, nl pulses Gastrointestinal: soft, tender Extremities: normal pulses VALDEZ JIMENEZ MD Dec 29, 2018 06:31
[2018-12-29 08:02] VITALS: BP 148/70; PULSE 59; RESP 18
[2018-12-29] MEDS: DOCUSATE SODIUM 100 MG CAP PO SCH ×2 (09:00→20:46)
[2018-12-29] MEDS: SENNA TAB PO SCH ×2 (09:00→20:48)
[2018-12-29] MEDS: PROCHLORPERAZINE 10 MG TAB PO SCH (09:00)
--- NOTE | 2018-12-29 10:37 | CONS ---
Assessment/Plan Assessment/Plan Assessment/Plan (Daily) History of colorectal cancer Status post resection Currently on Xeloda History of pain management syndrome I have had a long conversation with him concerning not discontinuing his pain medications as an outpatient. He was taking Leflore and alternating with Dilaudid. I have asked him to take pain medications as directed now and in the future we will start him off low-dose MS Contin 15 mg twice daily and for a short period of time 2 mg of Dilaudid IV every 3 hours but for only 3 days and switch him over to oral medications. He is in agreement with treatment regimen Consultation Date/Type/Reason Admit Date/Time Dec 28, 2018 at 20:23 Date/Time of Note DATE: 12/29/18 TIME: 10:34 Hx of Present Illness 43-year-old gentleman well-known to me from prior hospitalizations who presented at this time with pain out of control. Patient states his lower pelvis began to become uncomfortable with increasing pain which radiated down to both lower extremities he states that he is unable to tolerate the Xeloda that has been on which he feels is causing his increasing pain. This is somewhat suspect from prior hospitalizations he has been somewhat noncompliant with his pain control regimens as well as other recommended therapies. However this does not distract and the fact that he has had colorectal cancer in the past and still has ongoing discomfort. He states as recently as yesterday which she describes is soft. Denies nausea vomiting fevers chills cough shortness of breath frequency burning when he urinates he is not negotiating for higher amounts of pain control medications states he has discontinued methadone which she was prescribed during last hospitalization. Denies itching mental cloudiness sweating fatigue drowsiness but his pain is described as 7/10 however clinically looks comfortable there is no past medical history as purposeful oversedation negative mood changes he does not appear to be intoxicated or unkempt no recent history of coronary accidents once again he is not requesting frequent renewal of his medications he has had a significant IV Dilaudid he is not a attempting to obta in sorry certain pain control medications. There is no contact with street drug culture he is non-smoker nondrinker. Subjective hx not possible: other (non critical) Constitutional: No no complaints, No improved, No chills, No diaphoresis, No disoriented, No febrile, No poor po, No requiring IVF, No requiring O2, No other Eyes: No no complaints, No pain, No discharge, No redness, No visual change, No other ENT: No no complaints, No bleeding, No pain, No congestion, No discharge, No dysphagia, No sore throat, No other Respiratory: No no complaints, No pain, No cough, No pleuritic pain, No shortness of breath, No sputum, No wheezing, No other Cardiovascular: No no complaints, No chest pain, No edema, No lightheadedness, No orthopenea, No palpitations, No paroxysmal nocturnal dyspnea, No other Gastrointestinal: No no complaints, No pain, No blood, No constipation, No decreased appetite, No diarrhea, No flatus, No nausea, No passing stool, No vomiting, No other Genitourinary: No no complaints, No bleeding, No dysuria, No discharge, No flank pain, No hematuria, No other Musculoskeletal: No no complaints, No back pain, No bone/joint pain, No neck pain, No restricted range of motion, No swelling, No other Neurologic: No no complaints, No confusion, No dizziness, No focal-weakness, No headache, No syncope, No seizure, No other Psychological: anxiety, depression Past Medical History Medical History: cancer, other (See HPI) Home Meds Reported Medications Sennosides (SENNA CONCENTRATE) 8.6 Mg Tablet, 8.6 MG PO BID for 30 Days, #60 TAKE ONE TABLET BY MOUTH TWO TIMES A DAY 12/28/18 Docusate Sodium (Col-Rite) 100 Mg Capsule, 100 MG PO BID for 30 Days, #60 12/28/18 Prochlorperazine* (Prochlorperazine*) 10 Mg Tablet, 10 MG PO DAILY for 25 Days, #100 12/28/18 Pantoprazole* (Pantoprazole*) 40 Mg Tablet.dr, 40 MG PO DAILY for 30 Days, #60 12/28/18 Lorazepam* (Lorazepam*) 1 Mg Tablet, 1 MG PO HS PRN for ANXIETY, #30 TAB 12/04/18 Metoclopramide* (Reglan*) 10 Mg Tablet, 10 MG PO AC MEALS, TAB 12/04/18 Capecitabine* (Xeloda*) 500 Mg Tablet, 500 MG PO BID, TAB 12/04/18 Amitriptyline Hcl* (Amitriptyline Hcl*) 25 Mg Tablet, 25 MG PO QHS for 30 Days, #30 TAB 12/04/18 Hydromorphone Hcl* (Hydromorphone Hcl*) 4 Mg Tablet, 4 MG PO Q4H PRN for PAIN for 8 Days, #90 TAB 12/04/18 Discontinued Scripts Hydrocodone/Acetaminophen (Hydrocodone-Acetamin 10-325 mg) 1 Each Tablet, 1 TAB PO Q4H PRN for PAIN 1-6 for 14 Days, #60 TAB Prov:TITUS BLACKWOOD MD 05/24/18 Medications Current Medications Ondansetron HCl (Zofran Inj) 4 mg Q6 PRN IV nausea vomit Last administered on 12/28/18at 21:56; Admin Dose 4 MG; Start 12/28/18 at 21:30 Hydromorphone HCl (Dilaudid) 0.5 mg Q3H PRN IV SEVERE PAIN LEVEL 7-10 Last administered on 12/29/18at 09:00; Admin Dose 0.5 MG; Start 12/28/18 at 23:30 Acetaminophen (Tylenol Tab) 650 mg Q6H PRN PO MILD PAIN(1-3)OR ELEVATED TEMP; Start 12/28/18 at 23:30 IV Flush (NS 3 ml) 3 ml PER PROTOCOL IV ; Start 12/29/18 at 00:30 Ondansetron HCl (Zofran Inj) 4 mg Q6H PRN IV NAUSEA/VOMITING Last administered on 12/29/18at 04:44; Admin Dose 4 MG; Start 12/29/18 at 00:30 Acetaminophen/ Hydrocodone Bitart (Leflore (5/325)) 1 tab Q6H PRN PO .MOD PAIN 4- 6; Start 12/29/18 at 00:30 Acetaminophen/ Hydrocodone Bitart (Leflore (5/325)) 2 tab Q6H PRN PO .SEVERE PAIN 7-10; Start 12/29/18 at 00:30 Morphine Sulfate (morphine) 2 mg Q4H PRN IV .SEVERE PAIN 7-10 Last administered on 12/29/18at 10:08; Admin Dose 2 MG; Start 12/29/18 at 00:30 Amitriptyline HCl (Elavil) 25 mg QHS PO ; Start 12/29/18 at 21:00 Docusate Sodium (Colace) 100 mg BID PO Last administered on 12/29/18at 09:00; Admin Dose 100 MG; Start 12/29/18 at 09:00 Hydromorphone HCl (Dilaudid) 4 mg Q4H PRN PO PAIN; Start 12/29/18 at 00:30 Lorazepam (Ativan) 1 mg HS PRN PO ANXIETY; Start 12/29/18 at 00:30 Pantoprazole (Protonix Tab) 40 mg DAILY@0600 PO Last administered on 12/29/18at 05:31; Admin Dose 40 MG; Start 12/29/18 at 06:00 Prochlorperazine (Compazine) 10 mg DAILY PO Last administered on 12/29/18at 09:00; Admin Dose 10 MG; Start 12/29/18 at 09:00 Senna (Senokot) 1 tab BID PO Last administered on 12/29/18at 09:00; Admin Dose 1 TAB; Start 12/29/18 at 09:00 Capecitabine (Xeloda) 500 mg BID WITH MEALS PO ; Start 12/29/18 at 17:55 Allergies: Coded Allergies: No Known Allergy (Unverified , 12/28/18) Past Surgical History Past Surgical Hx: bowel resection, other (See HPI) Family History Significant Family History: no pertinent family hx Social History Alcohol Use: none Smoking Status: Current every day smoker Drug Use: none Exam/Review of Systems Exam Vitals Vital Signs Date Temp Pulse Resp B/P (MAP) Pulse Ox O2 O2 Flow FiO2 Time Delivery Rate 12/29/18 97.4 59 18 148/70 98 Room Air 08:02 (96) Intake and Output 12/28/18 12/28/18 12/29/18 1515:00 23:00 07:00 IntakeIntake Total 800 ml BalanceBalance 800 ml Constitutional: alert, oriented, well developed Psych: anxiety Head: normocephalic, atraumatic Eyes: nl conjunctiva, EOMI, nl lids, nl sclera, PERRL ENMT: nl external ears & nose, nl lips & teeth, nl nasal mucosa & septum; No mucosa pink and moist, No intubated, No tympanic membranes, No other Neck: supple, non-tender; No jvd, No bruits, No masses, No thyromegaly, No nuchal rigidity, No other Respiratory: clear to auscultation, normal air movement; No congested cough, No crackles/rales, No diminished breath sounds, No intercostal retraction, No labored breathing, No respirations, No tactile fremitus, No wheezing, No other Cardiovascular: regular rate and rhythm, nl pulses; No bruits, No diastolic murmur, No edema, No gallop, No irregular rhythm, No jugular venous distention (JVD), No murmurs/extra sounds, No rub, No systolic murmur, No S3, No S4, No other Gastrointestinal: No soft, No nl liver, spleen, No non-tender, No ascites, No bowel sounds, No distended, No firm, No hepatomegaly, No mass, No rebound or guarding, No splenomegaly, No surgical scars, No tender, No other Musculoskeletal: nl extremities to inspection, nl gait and stance; No joint tenderness, No muscle tone, No muscle weakness, No range of motion, No spine non-tender, No swelling, No other 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: 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, nl mental status, nl speech, nl strength Results Result Diagram: 12/29/18 0454 12/29/18 0454 Results 24hrs Laboratory Tests Test 12/28/18 17:49 12/28/18 19:56 12/29/18 04:54 White Blood Count 9.9 # 8.0 Red Blood Count 4.04 #L 4.01 L Hemoglobin 11.9 #L 11.8 L Hematocrit 37.7 #L 37.4 L Mean Corpuscular Volume 93.3 93.3 Mean Corpuscular Hemoglobin 29.5 29.4 Mean Corpuscular Hemoglobin Concent 31.6 L 31.6 L Red Cell Distribution Width 18.8 H 19.3 H Platelet Count 389 411 Mean Platelet Volume 9.3 9.2 Immature Granulocytes % 0.700 H 0.800 H Neutrophils % 90.5 H 72.1 Lymphocytes % 5.3 L 14.5 L Monocytes % 3.1 11.9 H Eosinophils % 0.1 0.3 Basophils % 0.3 0.4 Nucleated Red Blood Cells % 0.0 0.0 Immature Granulocytes # 0.070 H 0.060 H Neutrophils # 8.9 H 5.7 Lymphocytes # 0.5 L 1.2 Monocytes # 0.3 1.0 H Eosinophils # 0.0 0.0 Basophils # 0.0 0.0 Nucleated Red Blood Cells # 0.0 0.0 Sodium Level 145 H 146 H Potassium Level 4.3 3.9 Chloride Level 105 101 Carbon Dioxide Level 28 32 H Anion Gap 12 13 Blood Urea Nitrogen 13 14 Creatinine 0.75 0.78 Est Glomerular Filtrat Rate mL/min > 60 > 60 Glucose Level 140 113 Calcium Level 10.1 9.9 Total Bilirubin 0.3 0.3 Direct Bilirubin 0.00 0.00 Indirect Bilirubin 0.3 0.3 Aspartate Amino Transf (AST/SGOT) 26 19 Alanine Aminotransferase (ALT/SGPT) 12 L 11 L Alkaline Phosphatase 161 H 146 H Total Protein 8.3 H 7.8 Albumin 4.2 4.1 Globulin 4.10 H 3.70 H Albumin/Globulin Ratio 1.02 1.10 Lipase 15 L Bedside Urine pH (LAB) 8.5 Bedside Urine Protein (LAB) Trace H Bedside Urine Glucose (UA) Negative Bedside Urine Ketones (LAB) Trace H Bedside Urine Blood Negative Bedside Urine Nitrite (LAB) Negative Bedside Urine Leukocyte Esterase (L Negative Medications Medication Current Medications Ondansetron HCl (Zofran Inj) 4 mg Q6 PRN IV nausea vomit Last administered on 12/28/18at 21:56; Admin Dose 4 MG; Start 12/28/18 at 21:30 Hydromorphone HCl (Dilaudid) 0.5 mg Q3H PRN IV SEVERE PAIN LEVEL 7-10 Last administered on 12/29/18at 09:00; Admin Dose 0.5 MG; Start 12/28/18 at 23:30 Acetaminophen (Tylenol Tab) 650 mg Q6H PRN PO MILD PAIN(1-3)OR ELEVATED TEMP; Start 12/28/18 at 23:30 IV Flush (NS 3 ml) 3 ml PER PROTOCOL IV ; Start 12/29/18 at 00:30 Ondansetron HCl (Zofran Inj) 4 mg Q6H PRN IV NAUSEA/VOMITING Last administered on 12/29/18at 04:44; Admin Dose 4 MG; Start 12/29/18 at 00:30 Acetaminophen/ Hydrocodone Bitart (Leflore (5/325)) 1 tab Q6H PRN PO .MOD PAIN 4- 6; Start 12/29/18 at 00:30 Acetaminophen/ Hydrocodone Bitart (Leflore (5/325)) 2 tab Q6H PRN PO .SEVERE PAIN 7-10; Start 12/29/18 at 00:30 Morphine Sulfate (morphine) 2 mg Q4H PRN IV .SEVERE PAIN 7-10 Last administered on 12/29/18at 10:08; Admin Dose 2 MG; Start 12/29/18 at 00:30 Amitriptyline HCl (Elavil) 25 mg QHS PO ; Start 12/29/18 at 21:00 Docusate Sodium (Colace) 100 mg BID PO Last administered on 12/29/18at 09:00; Admin Dose 100 MG; Start 12/29/18 at 09:00 Hydromorphone HCl (Dilaudid) 4 mg Q4H PRN PO PAIN; Start 12/29/18 at 00:30 Lorazepam (Ativan) 1 mg HS PRN PO ANXIETY; Start 12/29/18 at 00:30 Pantoprazole (Protonix Tab) 40 mg DAILY@0600 PO Last administered on 12/29/18at 05:31; Admin Dose 40 MG; Start 12/29/18 at 06:00 Prochlorperazine (Compazine) 10 mg DAILY PO Last administered on 12/29/18at 09:00; Admin Dose 10 MG; Start 12/29/18 at 09:00 Senna (Senokot) 1 tab BID PO Last administered on 12/29/18at 09:00; Admin Dose 1 TAB; Start 12/29/18 at 09:00 Capecitabine (Xeloda) 500 mg BID WITH MEALS PO ; Start 12/29/18 at 17:55 SERENA JOHNSTON Dec 29, 2018 10:37
[2018-12-29] MEDS: morphine (ER) 15 MG TAB PO SCH ×2 (12:28→20:47)
[2018-12-29] MEDS: HYDROmorphONE 2 MG/ML SYG IV PRN ×4 (12:29→21:29)
--- NOTE | 2018-12-29 15:03 | PN ---
Date/Time of Note Date/Time of Note DATE: 12/29/18 TIME: 14:33 Assessment/Plan VTE Prophylaxis Risk score (from Ns)>0 risk: 4 SCD applied (from Ns): Yes Pharmacological prophylaxis: LMWH Lines/Catheters IV Catheter Type (from Nrsg): Peripheral IV Assessment/Plan Assessment/Plan 1. Abdominal and rectal pain with nausea and vomiting: follow up with pain management 1. Rectal pain, pain management 2. h/o Rectal cancer, s/p resection, chemotherapy and radiation, on xeloda now 3. Anemia, chronic, stable Result Diagram: 12/29/184 12/29/184 Results 24hrs Laboratory Tests Test 12/28/18 17:49 12/28/18 19:56 12/29/18 04:54 White Blood Count 9.9 # 8.0 Red Blood Count 4.04 #L 4.01 L Hemoglobin 11.9 #L 11.8 L Hematocrit 37.7 #L 37.4 L Mean Corpuscular Volume 93.3 93.3 Mean Corpuscular Hemoglobin 29.5 29.4 Mean Corpuscular Hemoglobin Concent 31.6 L 31.6 L Red Cell Distribution Width 18.8 H 19.3 H Platelet Count 389 411 Mean Platelet Volume 9.3 9.2 Immature Granulocytes % 0.700 H 0.800 H Neutrophils % 90.5 H 72.1 Lymphocytes % 5.3 L 14.5 L Monocytes % 3.1 11.9 H Eosinophils % 0.1 0.3 Basophils % 0.3 0.4 Nucleated Red Blood Cells % 0.0 0.0 Immature Granulocytes # 0.070 H 0.060 H Neutrophils # 8.9 H 5.7 Lymphocytes # 0.5 L 1.2 Monocytes # 0.3 1.0 H Eosinophils # 0.0 0.0 Basophils # 0.0 0.0 Nucleated Red Blood Cells # 0.0 0.0 Sodium Level 145 H 146 H Potassium Level 4.3 3.9 Chloride Level 105 101 Carbon Dioxide Level 28 32 H Anion Gap 12 13 Blood Urea Nitrogen 13 14 Creatinine 0.75 0.78 Est Glomerular Filtrat Rate mL/min > 60 > 60 Glucose Level 140 113 Calcium Level 10.1 9.9 Total Bilirubin 0.3 0.3 Direct Bilirubin 0.00 0.00 Indirect Bilirubin 0.3 0.3 Aspartate Amino Transf (AST/SGOT) 26 19 Alanine Aminotransferase (ALT/SGPT) 12 L 11 L Alkaline Phosphatase 161 H 146 H Total Protein 8.3 H 7.8 Albumin 4.2 4.1 Globulin 4.10 H 3.70 H Albumin/Globulin Ratio 1.02 1.10 Lipase 15 L Bedside Urine pH (LAB) 8.5 Bedside Urine Protein (LAB) Trace H Bedside Urine Glucose (UA) Negative Bedside Urine Ketones (LAB) Trace H Bedside Urine Blood Negative Bedside Urine Nitrite (LAB) Negative Bedside Urine Leukocyte Esterase (L Negative Subjective 24 Hr Interval Summary Free Text/Dictation abdomen and rectal pain Exam/Review of Systems Exam Vitals Vital Signs Date Temp Pulse Resp B/P (MAP) Pulse Ox O2 O2 Flow FiO2 Time Delivery Rate 12/29/18 97.4 59 18 148/70 98 Room Air 08:02 (96) Intake and Output 12/28/18 12/28/18 12/29/18 1515:00 23:00 07:00 IntakeIntake Total 800 ml BalanceBalance 800 ml Constitutional: alert, oriented, well developed Head: normocephalic, atraumatic Eyes: nl conjunctiva, EOMI, nl lids, nl sclera, PERRL ENMT: nl external ears & nose, nl lips & teeth, nl nasal mucosa & septum Neck: supple, non-tender Respiratory: clear to auscultation, normal air movement; No congested cough, No crackles/rales, No diminished breath sounds, No intercostal retraction, No labored breathing, No respirations, No tactile fremitus, No wheezing, No other Cardiovascular: regular rate and rhythm, nl pulses; No bruits, No diastolic murmur, No edema, No gallop, No irregular rhythm, No jugular venous distention (JVD), No murmurs/extra sounds, No rub, No systolic murmur, No S3, No S4, No other Gastrointestinal: soft, nl liver, spleen Musculoskeletal: nl extremities to inspection Extremities: normal pulses; No calf tenderness, No cyanosis, No clubbing, No edema, No pitting pedal edema, No palpable cord, No tenderness, No other 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: 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 II-XII intact, nl mental status, nl speech, nl strength Results Results 24hrs Laboratory Tests Test 12/28/18 17:49 12/28/18 19:56 12/29/18 04:54 White Blood Count 9.9 # 8.0 Red Blood Count 4.04 #L 4.01 L Hemoglobin 11.9 #L 11.8 L Hematocrit 37.7 #L 37.4 L Mean Corpuscular Volume 93.3 93.3 Mean Corpuscular Hemoglobin 29.5 29.4 Mean Corpuscular Hemoglobin Concent 31.6 L 31.6 L Red Cell Distribution Width 18.8 H 19.3 H Platelet Count 389 411 Mean Platelet Volume 9.3 9.2 Immature Granulocytes % 0.700 H 0.800 H Neutrophils % 90.5 H 72.1 Lymphocytes % 5.3 L 14.5 L Monocytes % 3.1 11.9 H Eosinophils % 0.1 0.3 Basophils % 0.3 0.4 Nucleated Red Blood Cells % 0.0 0.0 Immature Granulocytes # 0.070 H 0.060 H Neutrophils # 8.9 H 5.7 Lymphocytes # 0.5 L 1.2 Monocytes # 0.3 1.0 H Eosinophils # 0.0 0.0 Basophils # 0.0 0.0 Nucleated Red Blood Cells # 0.0 0.0 Sodium Level 145 H 146 H Potassium Level 4.3 3.9 Chloride Level 105 101 Carbon Dioxide Level 28 32 H Anion Gap 12 13 Blood Urea Nitrogen 13 14 Creatinine 0.75 0.78 Est Glomerular Filtrat Rate mL/min > 60 > 60 Glucose Level 140 113 Calcium Level 10.1 9.9 Total Bilirubin 0.3 0.3 Direct Bilirubin 0.00 0.00 Indirect Bilirubin 0.3 0.3 Aspartate Amino Transf (AST/SGOT) 26 19 Alanine Aminotransferase (ALT/SGPT) 12 L 11 L Alkaline Phosphatase 161 H 146 H Total Protein 8.3 H 7.8 Albumin 4.2 4.1 Globulin 4.10 H 3.70 H Albumin/Globulin Ratio 1.02 1.10 Lipase 15 L Bedside Urine pH (LAB) 8.5 Bedside Urine Protein (LAB) Trace H Bedside Urine Glucose (UA) Negative Bedside Urine Ketones (LAB) Trace H Bedside Urine Blood Negative Bedside Urine Nitrite (LAB) Negative Bedside Urine Leukocyte Esterase (L Negative Medications Medication Current Medications Ondansetron HCl (Zofran Inj) 4 mg Q6 PRN IV nausea vomit Last administered on 12/28/18at 21:56; Admin Dose 4 MG; Start 12/28/18 at 21:30 Acetaminophen (Tylenol Tab) 650 mg Q6H PRN PO MILD PAIN(1-3)OR ELEVATED TEMP; Start 12/28/18 at 23:30 IV Flush (NS 3 ml) 3 ml PER PROTOCOL IV ; Start 12/29/18 at 00:30 Ondansetron HCl (Zofran Inj) 4 mg Q6H PRN IV NAUSEA/VOMITING Last administered on 12/29/18at 04:44; Admin Dose 4 MG; Start 12/29/18 at 00:30 Amitriptyline HCl (Elavil) 25 mg QHS PO ; Start 12/29/18 at 21:00 Docusate Sodium (Colace) 100 mg BID PO Last administered on 12/29/18 09:00; Admin Dose 100 MG; Start 12/29/18 at 09:00 Lorazepam (Ativan) 1 mg HS PRN PO ANXIETY; Start 12/29/18 at 00:30 Pantoprazole (Protonix Tab) 40 mg DAILY@0600 PO Last administered on 12/29/18at 05:31; Admin Dose 40 MG; Start 12/29/18 at 06:00 Prochlorperazine (Compazine) 10 mg DAILY PO Last administered on 12/29/18at 0 9:00; Admin Dose 10 MG; Start 12/29/18 at 09:00 Senna (Senokot) 1 tab BID PO Last administered on 12/29/18 09:00; Admin Dose 1 TAB; Start 12/29/18 at 09:00 Morphine Sulfate (Ms Contin (Er)) 15 mg BID PO Last administered on 12/29/18at 12:28; Admin Dose 15 MG; Start 12/29/18 at 11:00 Hydromorphone HCl (Dilaudid) 2 mg Q3H PRN IV SEVERE PAIN LEVEL 7-10 Last administered on 12/29/18 12:29; Admin Dose 2 MG; Start 12/29/18 at 11:00 Capecitabine (Xeloda) 1,500 mg BID WITH MEALS PO ; Start 12/29/18 at 17:55; Status LORELEI WARD MD Dec 29, 2018 14:43
--- NOTE | 2018-12-29 15:23 | CONS ---
Assessment/Plan Assessment/Plan Hospital Course (Demo Recall) #rectal ca, MSI stable, T3 lesion with perirectal LAD -s/p Xeloda 1500 mg p.o. b.i.d. with radiation . s/p 6 week course completed 2 weeks ago, early -pt does have subscentimeter pulmonary and liver nodules but they are in determinant and difficult to say if they are malignant or not. -10/07/[address] with post surgical changes. no evidence of malignancy -11/09/18 started cycle 1 of Xelox. pt has alot of pain and fatigue. -given his GI side effects and debilitating neuropathy, oxaliplatin was discontinued and patient is now on Xeloda alone -will continue with cycle 4 of Xeloda #Rectal / Abdominal pain -continue Dilaudid -continue stool softener and bowel regimen -pt now on MS continu 15mg po bID Consultation Date/Type/Reason Admit Date/Time Dec 28, 2018 at 20:23 Date of Consultation: Dec 29, 2018 Type of Consult oncology Reason for Consultation rectal cancer Requesting Provider: MILLIE SHIELDS Date/Time of Note DATE: 12/29/18 TIME: 15:23 Hx of Present Illness 43 yo smoker, 1ppd x 25 years, started having upper abdominal discomfort and heartburn about 2 years ago. He also started having intermittent rectal bleeding at that time. Over the last 2 mos his symptoms became worse with daily BRBPR mixed in with stool. - 12/25/[address] Ruiz and underwent EGD and colonoscopy onshowing:reflux esophagitis, gastritis with erosions large rectal tumor extending up to 5 cm from anus.Path showed an invasive moderately differentiated adenocarcinoma. -01/14/18 CT C/A/P demonstrates several no nodules measuring 2 mm common 3 mm and 4 mm.nAlso seen is a 3 mm low density lesion in the hepatic dome and a 4 mm posterior 01/14/18 MRI pelvis demonstrates known rectal ca with perirectal adenopathy. -01/18/18 pt underwent ureteroscopy and laser lithotripsy and insertion of a JJ stent and later on removal of the JJ stent, status post resection of bladder tumor -01/27/18 pt started neoadjuvant concurrent chemotherapy with radiation -02/09/18 readmitted for pain to [facility] but discharged without complication -03/2018 admitted for nausea/ vomiting. Ct Brain was done and negative -04/14/18 Ct A/P re demonstrates 2 small non-obstructing left renal calculi largest measuring 0.8cm. rectal wall thickening noted -05/15/18 Pt underwent APR which revealed 5mm residual adenocarcinoma , grade 2, with tumor invading through muscularis propria into the pericolorectal tissue. all margins were uninvolved with disease. all 0/9 LN without disease. post op course was complicated by abscess and bleeding. pt has since recovered -10/07/[address] demonstrates post surgical changes -11/09/17 pt recieved cycle 1 of Xelox . Currently -12/28/17 pt was admitted for abdominal pain and nausea. has since had IV hydration and was started on MS contin. Abdominal pain has subsided -Pt is cycle 4 day 10 Constitutional: improved Eyes: no complaints ENT: no complaints Respiratory: no complaints Cardiovascular: no complaints Gastrointestinal: no complaints Genitourinary: no complaints Musculoskeletal: no complaints Skin: no complaints Neurologic: no complaints Endocrine: no complaints Lymphatic: no complaints Psychological: anxiety, depression Past Medical History Medical History: cancer, other (See HPI) Home Meds Reported Medications Sennosides (SENNA CONCENTRATE) 8.6 Mg Tablet, 8.6 MG PO BID for 30 Days, #60 TAKE ONE TABLET BY MOUTH TWO TIMES A DAY 12/28/18 Docusate Sodium (Col-Rite) 100 Mg Capsule, 100 MG PO BID for 30 Days, #60 12/28/18 Prochlorperazine* (Prochlorperazine*) 10 Mg Tablet, 10 MG PO DAILY for 25 Days, #100 12/28/18 Pantoprazole* (Pantoprazole*) 40 Mg Tablet.dr, 40 MG PO DAILY for 30 Days, #60 12/28/18 Lorazepam* (Lorazepam*) 1 Mg Tablet, 1 MG PO HS PRN for ANXIETY, #30 TAB 12/04/18 Metoclopramide* (Reglan*) 10 Mg Tablet, 10 MG PO AC MEALS, TAB 12/04/18 Capecitabine* (Xeloda*) 500 Mg Tablet, 500 MG PO BID, TAB 12/04/18 Amitriptyline Hcl* (Amitriptyline Hcl*) 25 Mg Tablet, 25 MG PO QHS for 30 Days, #30 TAB 12/04/18 Hydromorphone Hcl* (Hydromorphone Hcl*) 4 Mg Tablet, 4 MG PO Q4H PRN for PAIN for 8 Days, #90 TAB 12/04/18 Discontinued Scripts Hydrocodone/Acetaminophen (Hydrocodone-Acetamin 10-325 mg) 1 Each Tablet, 1 TAB PO Q4H PRN for PAIN 1-6 for 14 Days, #60 TAB Prov:TITUS BLACKWOOD MD 05/24/18 Medications Current Medications Ondansetron HCl (Zofran Inj) 4 mg Q6 PRN IV nausea vomit Last administered on 12/28/18at 21:56; Admin Dose 4 MG; Start 12/28/18 at 21:30 Acetaminophen (Tylenol Tab) 650 mg Q6H PRN PO MILD PAIN(1-3)OR ELEVATED TEMP; Start 12/28/18 at 23:30 IV Flush (NS 3 ml) 3 ml PER PROTOCOL IV ; Start 12/29/18 at 00:30 Ondansetron HCl (Zofran Inj) 4 mg Q6H PRN IV NAUSEA/VOMITING Last administered on 12/29/18at 04:44; Admin Dose 4 MG; Start 12/29/18 at 00:30 Amitriptyline HCl (Elavil) 25 mg QHS PO ; Start 12/29/18 at 21:00 Docusate Sodium (Colace) 100 mg BID PO Last administered on 12/29/18at 09:00; Admin Dose 100 MG; Start 12/29/18 at 09:00 Lorazepam (Ativan) 1 mg HS PRN PO ANXIETY; Start 12/29/18 at 00:30 Pantoprazole (Protonix Tab) 40 mg DAILY@0600 PO Last administered on 12/29/18at 05:31; Admin Dose 40 MG; Start 12/29/18 at 06:00 Prochlorperazine (Compazine) 10 mg DAILY PO Last administered on 12/29/18 09:00; Admin Dose 10 MG; Start 12/29/18 at 09:00 Senna (Senokot) 1 tab BID PO Last administered on 12/29/18 09:00; Admin Dose 1 TAB; Start 12/29/18 at 09:00 Morphine Sulfate (Ms Contin (Er)) 15 mg BID PO Last administered on 12/29/18at 12:28; Admin Dose 15 MG; Start 12/29/18 at 11:00 Hydromorphone HCl (Dilaudid) 2 mg Q3H PRN IV SEVERE PAIN LEVEL 7-10 Last administered on 12/29/18at 12:29; Admin Dose 2 MG; Start 12/29/18 at 11:00 Capecitabine (Xeloda) 1,500 mg BID WITH MEALS PO ; Start 12/29/18 at 17:55 Potassium Chloride 10 meq/ Sodium Chloride 1,005 ml @ 75 mls/hr [id number] IV ; Start 12/29/18 at 15:30; Status UNV Enoxaparin Sodium (Lovenox) 40 mg DAILY SC ; Start 12/30/18 at 09:00; Status UNV Allergies: Coded Allergies: No Known Allergy (Unverified , 12/28/18) Past Surgical History Past Surgical Hx: bowel resection, other (See HPI) Social History Alcohol Use: none Smoking Status: Current every day smoker Drug Use: none Exam/Review of Systems Exam Vitals Vital Signs Date Temp Pulse Resp B/P (MAP) Pulse Ox O2 O2 Flow FiO2 Time Delivery Rate 12/29/18 97.4 59 18 148/70 98 Room Air 08:02 (96) Intake and Output 12/28/18 12/28/18 12/29/18 1515:00 23:00 07:00 IntakeIntake Total 800 ml BalanceBalance 800 ml Constitutional: alert, oriented Psych: no complaints, anxiety, depression Head: normocephalic Eyes: nl conjunctiva ENMT: nl external ears & nose Neck: supple Respiratory: clear to auscultation Cardiovascular: regular rate and rhythm Gastrointestinal: soft Musculoskeletal: nl extremities to inspection Results Result Diagram: 12/29/18 0454 12/29/18 0454 Results 24hrs Laboratory Tests Test 12/28/18 17:49 12/28/18 19:56 12/29/18 04:54 White Blood Count 9.9 # 8.0 Red Blood Count 4.04 #L 4.01 L Hemoglobin 11.9 #L 11.8 L Hematocrit 37.7 #L 37.4 L Mean Corpuscular Volume 93.3 93.3 Mean Corpuscular Hemoglobin 29.5 29.4 Mean Corpuscular Hemoglobin Concent 31.6 L 31.6 L Red Cell Distribution Width 18.8 H 19.3 H Platelet Count 389 411 Mean Platelet Volume 9.3 9.2 Immature Granulocytes % 0.700 H 0.800 H Neutrophils % 90.5 H 72.1 Lymphocytes % 5.3 L 14.5 L Monocytes % 3.1 11.9 H Eosinophils % 0.1 0.3 Basophils % 0.3 0.4 Nucleated Red Blood Cells % 0.0 0.0 Immature Granulocytes # 0.070 H 0.060 H Neutrophils # 8.9 H 5.7 Lymphocytes # 0.5 L 1.2 Monocytes # 0.3 1.0 H Eosinophils # 0.0 0.0 Basophils # 0.0 0.0 Nucleated Red Blood Cells # 0.0 0.0 Sodium Level 145 H 146 H Potassium Level 4.3 3.9 Chloride Level 105 101 Carbon Dioxide Level 28 32 H Anion Gap 12 13 Blood Urea Nitrogen 13 14 Creatinine 0.75 0.78 Est Glomerular Filtrat Rate mL/min > 60 > 60 Glucose Level 140 113 Calcium Level 10.1 9.9 Total Bilirubin 0.3 0.3 Direct Bilirubin 0.00 0.00 Indirect Bilirubin 0.3 0.3 Aspartate Amino Transf (AST/SGOT) 26 19 Alanine Aminotransferase (ALT/SGPT) 12 L 11 L Alkaline Phosphatase 161 H 146 H Total Protein 8.3 H 7.8 Albumin 4.2 4.1 Globulin 4.10 H 3.70 H Albumin/Globulin Ratio 1.02 1.10 Lipase 15 L Bedside Urine pH (LAB) 8.5 Bedside Urine Protein (LAB) Trace H Bedside Urine Glucose (UA) Negative Bedside Urine Ketones (LAB) Trace H Bedside Urine Blood Negative Bedside Urine Nitrite (LAB) Negative Bedside Urine Leukocyte Esterase (L Negative Medications Medication Current Medications Ondansetron HCl (Zofran Inj) 4 mg Q6 PRN IV nausea vomit Last administered on 12/28/18at 21:56; Admin Dose 4 MG; Start 12/28/18 at 21:30 Acetaminophen (Tylenol Tab) 650 mg Q6H PRN PO MILD PAIN(1-3)OR ELEVATED TEMP; Start 12/28/18 at 23:30 IV Flush (NS 3 ml) 3 ml PER PROTOCOL IV ; Start 12/29/18 at 00:30 Ondansetron HCl (Zofran Inj) 4 mg Q6H PRN IV NAUSEA/VOMITING Last administered on 12/29/18at 04:44; Admin Dose 4 MG; Start 12/29/18 at 00:30 Amitriptyline HCl (Elavil) 25 mg QHS PO ; Start 12/29/18 at 21:00 Docusate Sodium (Colace) 100 mg BID PO Last administered on 12/29/18at 09:00; Admin Dose 100 MG; Start 12/29/18 at 09:00 Lorazepam (Ativan) 1 mg HS PRN PO ANXIETY; Start 12/29/18 at 00:30 Pantoprazole (Protonix Tab) 40 mg DAILY@0600 PO Last administered on 12/29/18at 05:31; Admin Dose 40 MG; Start 12/29/18 at 06:00 Prochlorperazine (Compazine) 10 mg DAILY PO Last administered on 12/29/18at 09:00; Admin Dose 10 MG; Start 12/29/18 at 09:00 Senna (Senokot) 1 tab BID PO Last administered on 12/29/18at 09:00; Admin Dose 1 TAB; Start 12/29/18 at 09:00 Morphine Sulfate (Ms Contin (Er)) 15 mg BID PO Last administered on 12/29/18at 12:28; Admin Dose 15 MG; Start 12/29/18 at 11:00 Hydromorphone HCl (Dilaudid) 2 mg Q3H PRN IV SEVERE PAIN LEVEL 7-10 Last administered on 12/29/18at 12:29; Admin Dose 2 MG; Start 12/29/18 at 11:00 Capecitabine (Xeloda) 1,500 mg BID WITH MEALS PO ; Start 12/29/18 at 17:55 Potassium Chloride 10 meq/ Sodium Chloride 1,005 ml @ 75 mls/hr [id number] IV ; Start 12/29/18 at 15:30; Status UNV Enoxaparin Sodium (Lovenox) 40 mg DAILY SC ; Start 12/30/18 at 09:00; Status UNV MIMI ZENDEJAS M.D. Dec 29, 2018 15:23
[2018-12-29 15:25] VITALS: BP 110/62; PULSE 66; RESP 18
[2018-12-29] MEDS: POTASSIUM CHLORIDE 10 MEQ in SOD CHLORIDE 0.45% 1,000 ML IV SCH (18:20)
[2018-12-29] MEDS: NICOTINE (21 MG/24 HR) PATCH TRANSDERM SCH (18:30)
[2018-12-29 20:36] VITALS: BP 119/70; PULSE 61; RESP 19
[2018-12-29] MEDS ORDERED: AMITRIPTYLINE 25 MG TAB PO SCH (21:00)
[2018-12-30] MEDS: HYDROmorphONE 2 MG/ML SYG IV PRN ×4 (00:19→09:28)
[2018-12-30] MEDS: CAPECITABINE 500 MG TAB PO SCH ×2 (00:31→08:21)
[2018-12-30 01:56] VITALS: BP 113/62; PULSE 64; RESP 18
[2018-12-30] MEDS: POTASSIUM CHLORIDE 10 MEQ in SOD CHLORIDE 0.45% 1,000 ML IV SCH ×2 (05:13→08:23)
[2018-12-30] MEDS: PANTOPRAZOLE (EC) 40 MG TAB PO SCH (05:13)
[2018-12-30] MEDS: DOCUSATE SODIUM 100 MG CAP PO SCH (08:16)
[2018-12-30] MEDS: PROCHLORPERAZINE 10 MG TAB PO SCH (08:17)
[2018-12-30] MEDS: NICOTINE (21 MG/24 HR) PATCH TRANSDERM SCH (08:17)
[2018-12-30] MEDS: SENNA TAB PO SCH (08:17)
[2018-12-30] MEDS: morphine (ER) 15 MG TAB PO SCH (08:21)
[2018-12-30 08:30] VITALS: BP 116/61; PULSE 59; RESP 18
[2018-12-30] MEDS ORDERED: ENOXAPARIN 40 MG/0.4 ML SYG SC SCH (09:00)
--- NOTE | 2018-12-30 11:44 | CONS ---
Assessment/Plan Assessment/Plan Hospital Course (Demo Recall) #rectal ca, MSI stable, T3 lesion with perirectal LAD -s/p Xeloda 1500 mg p.o. b.i.d. with radiation . s/p 6 week course completed 2 weeks ago, early -pt does have subscentimeter pulmonary and liver nodules but they are in determinant and difficult to say if they are malignant or not. -10/07/[address] with post surgical changes. no evidence of malignancy -11/09/18 started cycle 1 of Xelox. pt has alot of pain and fatigue. -given his GI side effects and debilitating neuropathy, oxaliplatin was discontinued and patient is now on Xeloda alone -will continue with cycle 4 of Xeloda #Rectal / Abdominal pain -continue Dilaudid -continue stool softener and bowel regimen -pt now on MS continu 15mg po bID Consultation Date/Type/Reason Admit Date/Time Dec 29, 2018 at 08:29 Initial Consult Date 12/29/18 Type of Consult oncology Reason for Consultation rectal cancer Requesting Provider: MILLIE SHIELDS Date/Time of Note DATE: 12/30/18 TIME: 11:43 24 HR Interval Summary Free Text/Dictation pt feeling better on MS contin Exam/Review of Systems Exam Vitals Vital Signs Date Temp Pulse Resp B/P (MAP) Pulse Ox O2 O2 Flow FiO2 Time Delivery Rate 12/30/18 98.1 59 18 116/61 99 08:30 (79) 12/29/18 Room Air 15:25 Intake and Output 12/29/18 12/29/18 12/30/18 1515:00 23:00 07:00 IntakeIntake Total 1200 ml 720 ml 990 ml OutputOutput Total 3 ml 0 ml BalanceBalance 1197 ml 720 ml 990 ml Constitutional: alert, oriented Psych: no complaints, anxiety, depression Head: normocephalic Eyes: nl conjunctiva ENMT: nl external ears & nose Neck: supple Respiratory: clear to auscultation Cardiovascular: regular rate and rhythm Gastrointestinal: soft Musculoskeletal: nl extremities to inspection Results Result Diagram: 12/30/18 0451 12/30/18 0451 Results 24hrs Laboratory Tests Test 12/30/18 04:51 White Blood Count 6.8 Red Blood Count 3.53 L Hemoglobin 10.4 L Hematocrit 32.9 L Mean Corpuscular Volume 93.2 Mean Corpuscular Hemoglobin 29.5 Mean Corpuscular Hemoglobin Concent 31.6 L Red Cell Distribution Width 19.5 H Platelet Count 312 # Mean Platelet Volume 9.5 Immature Granulocytes % 0.400 Neutrophils % 66.3 Lymphocytes % 17.4 Monocytes % 13.2 H Eosinophils % 2.3 Basophils % 0.4 Nucleated Red Blood Cells % 0.0 Immature Granulocytes # 0.030 Neutrophils # 4.5 Lymphocytes # 1.2 Monocytes # 0.9 Eosinophils # 0.2 Basophils # 0.0 Nucleated Red Blood Cells # 0.0 Sodium Level 139 Potassium Level 4.7 Chloride Level 101 Carbon Dioxide Level 29 Anion Gap 9 Blood Urea Nitrogen 12 Creatinine 0.76 Est Glomerular Filtrat Rate mL/min > 60 Glucose Level 79 Calcium Level 9.0 Phosphorus Level 4.5 Magnesium Level 2.0 Medications Medication Current Medications Ondansetron HCl (Zofran Inj) 4 mg Q6 PRN IV nausea vomit Last administered on at 21:56; Admin Dose 4 MG; Start 12/28/18 at 21:30 Acetaminophen (Tylenol Tab) 650 mg Q6H PRN PO MILD PAIN(1-3)OR ELEVATED TEMP; Start 12/28/18 at 23:30 IV Flush (NS 3 ml) 3 ml PER PROTOCOL IV ; Start 12/29/18 at 00:30 Ondansetron HCl (Zofran Inj) 4 mg Q6H PRN IV NAUSEA/VOMITING Last administered on 12/29/18at 04:44; Admin Dose 4 MG; Start 12/29/18 at 00:30 Amitriptyline HCl (Elavil) 25 mg QHS PO Last administered on 12/29/18at 20:47; Admin Dose 25 MG; Start 12/29/18 at 21:00 Docusate Sodium (Colace) 100 mg BID PO Last administered on 12/30/18at 08:16; Admin Dose 100 MG; Start 12/29/18 at 09:00 Lorazepam (Ativan) 1 mg HS PRN PO ANXIETY; Start 12/29/18 at 00:30 Pantoprazole (Protonix Tab) 40 mg DAILY@0600 PO Last administered on 12/30/18at 05:13; Admin Dose 40 MG; Start 12/29/18 at 06:00 Prochlorperazine (Compazine) 10 mg DAILY PO Last administered on 12/30/18 08:17; Admin Dose 10 MG; Start 12/29/18 at 09:00 Senna (Senokot) 1 tab BID PO Last administered on 12/29/18 09:00; Admin Dose 1 TAB; Start 12/29/18 at 09:00 Morphine Sulfate (Ms Contin (Er)) 15 mg BID PO Last administered on 12/30/18 08:21; Admin Dose 15 MG; Start 12/29/18 at 11:00 Hydromorphone HCl (Dilaudid) 2 mg Q3H PRN IV SEVERE PAIN LEVEL 7-10 Last administered on 12/30/18 09:28; Admin Dose 2 MG; Start 12/29/18 at 11:00 Capecitabine (Xeloda) 1,500 mg BID WITH MEALS PO Last administered on 12/30/18 08:21; Admin Dose 1,500 MG; Start 12/29/18 at 17:55 Potassium Chloride 10 meq/ Sodium Chloride 1,005 ml @ 75 mls/hr [id number] IV Last administered on 12/30/18 08:23; Admin Dose 75 MLS/HR; Start 12/29/18 at 16:00 Enoxaparin Sodium (Lovenox) 40 mg DAILY SC ; Start 12/30/18 at 09:00 Nicotine (Nicoderm 21 Mg/ 24hr) 1 patch DAILY TRANSDERM Last administered on 12/30/18 08:17; Admin Dose 1 PATCH; Start 12/29/18 at 18:30 MIMI ZENDEJAS M.D. Dec 30, 2018 11:44
[2018-12-30] MEDS ORDERED: HYDROmorphONE 2 MG/ML SYG IV PRN (12:00)
[2018-12-30] MEDS ORDERED: MORP15TA3 PO ×2 (14:49→14:58)
[2018-12-30] MEDS ORDERED: HYDR2TAB36 PO (14:58)
--- NOTE | 2018-12-30 15:04 | DS ---
Date/Time of Note Date/Time of Note DATE: 12/30/18 TIME: 14:59 Discharge Summary Admission/Discharge Info Admit Date/Time Dec 29, 2018 at 08:29 Discharge Date/Time Discharge Diagnosis 1. Abdominal and rectal pain, on MsContin and dilaudid, follow up with PCP 2. h/o Rectal cancer, s/p resection, chemotherapy and radiation, on xeloda now, follow up with oncology 3. Anemia, chronic, stable Patient Condition: Stable Hospital Course This is a 43-year-old male with a history of colorectal cancer diagnosed in November 2017, status post surgical resection and currently under going on chemo. He presents to the ER complaining of severe abdominal pain as well as nausea and vomiting. Patient has been dealing with this for quite some time now. He said over the past few days the symptoms become so severe. He went [facility] yesterday and was treated with pain medications and antiemetics. He left AMA and went home. When the pain recurs, he was brought to [facility]. He said he has been vomiting multiple times a day, with emesis described as nonbloody, but occasionally bilious. He also reported rectal pain with defecation. Of note, patient is on Dilaudid at home and he seems to have high tolerance. Documentation from previous visit here shows that patient has taken almost 70 mg of Dilaudid in 1 day. Currently patient is asking to be placed on Dilaudid 2mg IV every 2 hours. I discussed with him about the side effect of such high-dose narcotic. He is willing to discuss with our pain specialist. CT abdomen/pelvis showed the following: Extensive rectal wall thickening and presacral fat infiltration, unchanged since 12/05/2018. This could be further evaluated with contrast-enhanced MRI if clinically warranted. Multiple nonobstructing stones in both kidneys measuring up to 4 mm on the left. There is no hydronephrosis. Normal appendix. Evidence of small bowel surgery in the left pelvis.Mild atherosclerotic arterial calcifications. CT scan result is reviewed by oncologist Dr. Mccoy who will follow up with him outpatient. For pain control, patient is seen by pain management Dr. Foote. He is started on MsContin and on iv dilaudid for pain control. Pain is better controlled. Patient will be discharged on MsContin along with small dose of dilaudid for break though pain. Follow up with PCP and oncology outpaient. Home Meds Active Scripts Hydromorphone Hcl* (Dilaudid*) 2 Mg Tablet, 1 MG PO Q6H PRN for PAIN LEVEL 6-10, #10 TAB Prov:LORELEI NARVAEZ MD 12/30/18 Morphine Sulfate (Morphine Sulfate ER) 15 Mg Tablet.er, 15 MG PO BID for 10 Days, TAB Prov:LORELEI NARVAEZ MD 12/30/18 Reported Medications Sennosides (SENNA CONCENTRATE) 8.6 Mg Tablet, 8.6 MG PO BID for 30 Days, #60 TAKE ONE TABLET BY MOUTH TWO TIMES A DAY 12/28/18 Docusate Sodium (Col-Rite) 100 Mg Capsule, 100 MG PO BID for 30 Days, #60 12/28/18 Prochlorperazine* (Prochlorperazine*) 10 Mg Tablet, 10 MG PO DAILY for 25 Days, #100 12/28/18 Pantoprazole* (Pantoprazole*) 40 Mg Tablet.dr, 40 MG PO DAILY for 30 Days, #60 12/28/18 Lorazepam* (Lorazepam*) 1 Mg Tablet, 1 MG PO HS PRN for ANXIETY, #30 TAB 12/04/18 Capecitabine* (Xeloda*) 500 Mg Tablet, 500 MG PO BID, TAB 12/04/18 Amitriptyline Hcl* (Amitriptyline Hcl*) 25 Mg Tablet, 25 MG PO QHS for 30 Days, #30 TAB 12/04/18 Discontinued Reported Medications Metoclopramide* (Reglan*) 10 Mg Tablet, 10 MG PO AC MEALS, TAB 12/04/18 Hydromorphone Hcl* (Hydromorphone Hcl*) 4 Mg Tablet, 4 MG PO Q4H PRN for PAIN for 8 Days, #90 TAB 12/04/18 Discontinued Scripts Hydrocodone/Acetaminophen (Hydrocodone-Acetamin 10-325 mg) 1 Each Tablet, 1 TAB PO Q4H PRN for PAIN 1-6 for 14 Days, #60 TAB Prov:TITUS BLACKWOOD MD 05/24/18 Follow-up Plan PCP and oncology in one week Primary Care Provider Not On Staff Doctor Pending Labs Laboratory Tests Test 12/30/18 04:51 White Blood Count 6.8 10^3/ul (4.8-10.8) Red Blood Count 3.53 10^6/ul (4.70-6.10) Hemoglobin 10.4 g/dl (14.0-18.0) Hematocrit 32.9 % (42.0-52.0) Mean Corpuscular Volume 93.2 fl (82.0-101.0) Mean Corpuscular Hemoglobin 29.5 pg (29.0-33.0) Mean Corpuscular Hemoglobin Concent 31.6 g/dl (32.0-37.0) Red Cell Distribution Width 19.5 % (11.5-14.5) Platelet Count 312 10^3/UL (140-415) Mean Platelet Volume 9.5 fl (7.4-10.4) Immature Granulocytes % 0.400 % (0.001-0.429) Neutrophils % 66.3 % (39.0-77.0) Lymphocytes % 17.4 % (15.0-51.0) Monocytes % 13.2 % (0.0-11.0) Eosinophils % 2.3 % (0.0-7.0) Basophils % 0.4 % (0.0-2.0) Nucleated Red Blood Cells % 0.0 /100WBC (0.0-0.0) Immature Granulocytes # 0.030 10^3/ul (0.0-0.031) Neutrophils # 4.5 10^3/ul (1.6-7.5) Lymphocytes # 1.2 10^3/ul (0.8-2.9) Monocytes # 0.9 10^3/ul (0.3-0.9) Eosinophils # 0.2 10^3/ul (0.0-0.5) Basophils # 0.0 10^3/ul (0.0-0.1) Nucleated Red Blood Cells # 0.0 10^3/ul (0.0-0.0) Sodium Level 139 mmol/L (135-144) Potassium Level 4.7 mmol/L (3.5-5.1) Chloride Level 101 mmol/L (97-110) Carbon Dioxide Level 29 mmol/L (21-31) Anion Gap 9 (5-13) Blood Urea Nitrogen 12 mg/dl (7-20) Creatinine 0.76 mg/dl (0.61-1.24) Est Glomerular Filtrat Rate mL/min > 60 mL/min (>60) Glucose Level 79 mg/dl (70-220) Calcium Level 9.0 mg/dl (8.4-10.2) Phosphorus Level 4.5 mg/dl (2.5-4.9) Magnesium Level 2.0 mg/dl (1.7-2.5) LORELEI NARVAEZ MD Dec 30, 2018 15:04
== END 2018-12-30 15:30 | disposition home or self-care (01) | DRG 376 ==
LOC: E/R 17:07 → MS1 20:23 → OBSVTOIN 12-29 08:29
PROVIDERS: ADMIT Internal Medicine; ATTEND Internal Medicine
DX: C19 Malignant neoplasm of rectosigmoid junction (principal); R11.2 Nausea with vomiting, unspecified; F17.210 Nicotine dependence, cigarettes, uncomplicated; K62.89 Other specified diseases of anus and rectum; D64.9 Anemia, unspecified
CPT/HCPCS: 36415; 74176; 80048; 80053; 81003; 83690; 83735; 84100; 85025; 87081; 96374; 96375; 96376; G0378; J1170; J1650; J2270; J2405; J3480

== ENCOUNTER 2019-01-24 01:02 | Inpatient (IN) | payer OTHER ==
[~2019-01-24] VITALS: Ht 177.8 cm; Wt 69.0 kg
[~2019-01-24 01:02] MED LIST changes: +DOCU-210 PO; -HYDR-3609 PO; +HYDR2TAB36 PO; -HYDR4TAB PO; -METO10TA92 PO; +MORP15TA3 PO; +PANT40TA4 PO; +PROC10TA10 PO; +SENN8.6T78 PO
[2019-01-24] MEDS ORDERED: SOD CHLORIDE 0.9% 1,000 ML IV STA (01:10)
[2019-01-24] MEDS ORDERED: ONDANSETRON 4 MG INJ IV STA ×2 (01:10→04:13)
[2019-01-24] MEDS ORDERED: morphine 4 MG/ML VIAL IV STA (01:10)
[2019-01-24] MEDS ORDERED: HYDROmorphONE 2 MG/ML SYG IV STA ×2 (01:40→04:13)
--- NOTE | 2019-01-24 05:10 | ERD ---
ER Documentation Chief Complaint Chief Complaint BIBA c/o abdominal pain & vomiting since 8:00 am HPI This is a 43-year-old male with a past medical history of metastatic colon cancer status post surgical resection currently on chemotherapy, chronic abdominal pain who is presenting with exacerbated abdominal pain, nausea, multiple episodes of nonbilious nonbloody vomiting. The patient does not endorse any constipation or diarrhea. He does not endorse any black or bloody or tarry stools. He does not endorse any dysuria or hematuria or urgency or frequency. The patient does have opiates and antiemetics at home, but he is not been able to keep them down due to vomiting. The patient denies fever or chills. The patient has had no headache or vision changes. The patient does not endorse neck or back pain. The patient denies lightheadedness or dizziness. The patient has had no chest pain or trouble breathing. The patient has had no focal deficits. The patient has had no weakness or numbness or tingling to the face or extremities. ROS All systems reviewed and are negative except as per history of present illness. Medications Home Meds Active Scripts Hydromorphone Hcl* (Dilaudid*) 2 Mg Tablet, 1 MG PO Q6H PRN for PAIN LEVEL 6-10, #10 TAB Prov:LORELEI NARVAEZ MD 12/30/18 Morphine Sulfate (Morphine Sulfate ER) 15 Mg Tablet.er, 15 MG PO BID for 10 Days, TAB Prov:LORELEI NARVAEZ MD 12/30/18 Reported Medications Sennosides (SENNA CONCENTRATE) 8.6 Mg Tablet, 8.6 MG PO BID for 30 Days, #60 TAKE ONE TABLET BY MOUTH TWO TIMES A DAY 12/28/18 Docusate Sodium (Col-Rite) 100 Mg Capsule, 100 MG PO BID for 30 Days, #60 12/28/18 Prochlorperazine* (Prochlorperazine*) 10 Mg Tablet, 10 MG PO DAILY for 25 Days, #100 12/28/18 Pantoprazole* (Pantoprazole*) 40 Mg Tablet.dr, 40 MG PO DAILY for 30 Days, #60 12/28/18 Lorazepam* (Lorazepam*) 1 Mg Tablet, 1 MG PO HS PRN for ANXIETY, #30 TAB 12/04/18 Capecitabine* (Xeloda*) 500 Mg Tablet, 500 MG PO BID, TAB 12/04/18 Amitriptyline Hcl* (Amitriptyline Hcl*) 25 Mg Tablet, 25 MG PO QHS for 30 Days, #30 TAB 12/04/18 Allergies Allergies: Coded Allergies: No Known Allergy (Unverified , 12/28/18) PMhx/Soc History of Surgery: Yes Anesthesia Reaction: No Hx 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 Disorder: No Hx Respiratory Disorders: No Hx Cardiac Disorders: No Hx Psychiatric Problems: No Hx Miscellaneous Medical Probl: Yes (Rectal cancer) Hx Alcohol Use: No Hx Substance Use: No Hx Tobacco Use: Yes Smoking Status: Current every day smoker FmHx Family History: No diabetes Physical Exam Vitals Vital Signs Date Temp Pulse Resp B/P (MAP) Pulse Ox O2 O2 Flow FiO2 Time Delivery Rate 01/24/19 72 18 144/96 97 Room Air 04:32 (112) 01/24/19 67 20 184/98 99 Room Air 04:15 (126) 01/24/19 63 18 106/68 99 Room Air 03:40 (81) 01/24/19 98.4 67 20 173/95 100 01:05 (121) 01/24/19 98.4 67 20 173/95 100 Room Air 01:05 (121) Physical Exam Const: No apparent distress, well-developed, well-nourished Head: Normocephalic, Atraumatic Eyes: Normal Conjunctiva. Extraocular movements intact. ENT: Normal External Ears, Nose and Mouth. Neck: Full range of motion. No meningismus. Resp: Clear to auscultation bilaterally, No wheezes, rales or rhonchi Cardio: Regular rate and rhythm. No murmurs, rubs or gallops Abd: Soft, non distended. General abdominal tenderness with voluntary guarding. Healed surgical scars. Normal bowel sounds Skin: No petechiae or rashes Back: No midline tenderness. No CVA tenderness Ext: No cyanosis, or edema Neur: Awake and alert, oriented 4. Cranial nerves intact. No facial droop. Normal strength, sensation and coordination. Psych: Anxious Result Diagram: 01/24/19 0128 01/24/19 0128 Results 24 hrs Laboratory Tests Test 01/24/19 01:28 01/24/19 04:02 White Blood Count 8.0 10^3/ul Red Blood Count 3.88 10^6/ul Hemoglobin 11.4 g/dl Hematocrit 36.4 % Mean Corpuscular Volume 93.8 fl Mean Corpuscular Hemoglobin 29.4 pg Mean Corpuscular Hemoglobin Concent 31.3 g/dl Red Cell Distribution Width 20.9 % Platelet Count 469 10^3/UL Mean Platelet Volume 9.1 fl Immature Granulocytes % 0.500 % Neutrophils % 74.8 % Lymphocytes % 12.0 % Monocytes % 10.2 % Eosinophils % 2.1 % Basophils % 0.4 % Nucleated Red Blood Cells % 0.0 /100WBC Immature Granulocytes # 0.040 10^3/ul Neutrophils # 6.0 10^3/ul Lymphocytes # 1.0 10^3/ul Monocytes # 0.8 10^3/ul Eosinophils # 0.2 10^3/ul Basophils # 0.0 10^3/ul Nucleated Red Blood Cells # 0.0 10^3/ul Sodium Level 144 mmol/L Potassium Level 4.1 mmol/L Chloride Level 104 mmol/L Carbon Dioxide Level 28 mmol/L Anion Gap 12 Blood Urea Nitrogen 11 mg/dl Creatinine 0.67 mg/dl Est Glomerular Filtrat Rate mL/min > 60 mL/min Glucose Level 105 mg/dl Calcium Level 9.8 mg/dl Total Bilirubin 0.2 mg/dl Direct Bilirubin 0.00 mg/dl Indirect Bilirubin 0.2 mg/dl Aspartate Amino Transf (AST/SGOT) 25 IU/L Alanine Aminotransferase (ALT/SGPT) 8 IU/L Alkaline Phosphatase 144 IU/L Total Protein 7.9 g/dl Albumin 4.1 g/dl Globulin 3.80 g/dl Albumin/Globulin Ratio 1.07 Lipase 177 U/L Urine Color YELLOW Urine Clarity SLIGHTLY CLOUDY Urine pH 6.0 Urine Specific Easley 1.016 Urine Ketones NEGATIVE mg/dL Urine Nitrite NEGATIVE mg/dL Urine Bilirubin NEGATIVE mg/dL Urine Urobilinogen 1+ mg/dL Urine Leukocyte Esterase NEGATIVE Araceli/ul Urine Microscopic RBC 7 /HPF Urine Microscopic WBC 2 /HPF Urine Amorphous Crystals FEW /HPF Urine Bacteria FEW /HPF Urine Mucus FEW /HPF Urine Hemoglobin NEGATIVE mg/dL Urine Glucose NEGATIVE mg/dL Urine Total Protein NEGATIVE mg/dl Current Medications Medications Dose Sig/Devan Start Time Status Last (Trade) Ordered Route PRN Stop Time Admin Dose Reason Admin Sodium 1,000 ml @ Q1H STAT 01/24/19 DC 01/24/19 Chloride 1,000 mls/hr IV 01:10 01/24/19 01:20 02:09 Morphine 4 mg ONCE STAT 01/24/19 DC 01/24/19 Sulfate IV 01:10 01/24/19 01:20 (morphine) 01:11 Ondansetron 4 mg ONCE STAT 01/24/19 DC 01/24/19 HCl (Zofran IV 01:10 01/24/19 01:19 Inj) 01:11 2 mg ONCE STAT 01/24/19 DC 01/24/19 Hydromorphone IV 01:40 01/24/19 01:46 HCl 01:41 (Dilaudid) 2 mg ONCE STAT 01/24/19 DC 01/24/19 Hydromorphone IV 04:13 01/24/19 04:19 HCl 04:14 (Dilaudid) Ondansetron 4 mg ONCE STAT 01/24/19 DC 01/24/19 HCl (Zofran IV 04:13 01/24/19 04:19 Inj) 04:14 Procedures/MDM MDM The patient's presentation warrants further investigation. Previous medical records, if available, were reviewed. LABS The patient's laboratory testing was obtained and reviewed. No emergent treatment was required unless described below. CBC: No E/o systemic infection. Mild normocytic anemia, nonemergent. Thrombocytosis, not emergent. Chemistry: No E/o severe acidosis or alkalosis or renal failure or liver disease or diabetic ketoacidosis Lipase: No E/o pancreatitis Urine: No E/o acute infection. +Hematuria IMAGING Imaging and Radiology interpretation reviewed. CT abdomen pelvis FINDINGS: CT abdomen: LOWER THORAX: There is mild subsegmental atelectasis in the posterior left lung base. LIVER AND GALLBLADDER: The liver is mildly enlarged and measures 21 cm in length. No hepatic lesions otherwise demonstrated. Gallbladder is unremarkable. SPLEEN: Normal. PANCREAS: Normal. ADRENAL GLANDS: Normal. KIDNEYS: There are multiple small sub centimeter calcifications in both kidneys. No hydronephrosis or abnormal perinephric fluid. There is no evidence of a stone within either ureter. VASCULATURE: Scattered atherosclerotic calcifications noted along the nondilated infrarenal aorta. LYMPH NODES: No significant retroperitoneal or mesenteric lymphadenopathy. BOWEL AND MESENTERY: There is evidence of previous bowel surgery with anastom otic suture line in the low anterior abdomen. The small bowel is otherwise unremarkable and there is no evidence for obstruction. There is a moderate amount of retained stool within the large bowel. CT pelvis: The urinary bladder is unremarkable. There is generalized thickening of the large bowel in the region of the lower sigmoid colon and rectosigmoid junction and there is thickening of the lower presacral soft tissues. Bones: Regional bones are intact. Superficial soft tissues are unremarkable. IMPRESSION: 1. Circumferential thickening of the rectosigmoid colon, associated infiltration and thickening of the presacral soft tissues similar compared with imaging of 12/28/2018 and 12/05/2018. Findings may indicate prior colitis, cannot definitively exclude an underlying neoplastic process. MRI may be useful for further evaluation if clinically warranted. 2. Bilateral nephrolithiasis. No hydronephrosis or evidence of obstructive uropathy. 3. Previous small bowel surgery. No evidence for obstruction. 4. Mild hepatomegaly. Electronically viewed and signed by Physician Dago on 01/24/2019 04:03 TREATMENT/DISPOSITION The patient presents for refractory nausea and vomiting and abdominal pain. Unfortunately, the patient has frequent episodes of abdominal pain with nausea and vomiting and has difficulty getting his symptoms under control at home. I did evaluate for an emergent etiology. The patient's CT scan reveals infiltration and thickening of the presacral soft tissues around the rectosigmoid colon that appears similar to previous studies. This is likely to be neoplastic in etiology. The patient does not have a small bowel obstruction. There is not evidence of diverticulosis or diverticulitis. The patient does not have any evidence of peritonitis. The patient does not have clinical symptoms concerning for mesenteric ischemia or ischemic colitis. The patient's symptoms are not consistent with cholecystitis. I have decreased suspicion for gastritis versus PUD versus GERD. The patient's lipase is normal. I do not suspect pancreatitis. CT scan is not concerning for appendicitis. The patient does not have a urinary tract infection. The patient does have mild hematuria, but no flank pain. The patient does have bilateral nephrolithiasis but no obvious obstruction. I doubt this to be the etiology of his symptoms. The patient does not have any palpable pulsatile mass or severe abdominal pain radiating to the back. I have low suspicion for aortic aneurysm, dissection or rupture. The patient was treated with morphine and Dilaudid in the emergency department. Unfortunately, the patient's pain persisted. The patient was also given multiple rounds of antiemetics without resolution. Given the patient's persistent symptoms, I do feel that he requires admission for further assessment and management. ADMISSION At this time, I feel that the patient requires admission for further evaluation and management. The patient will be admitted to panel in accordance with the patient's insurance. The patient was accepted by Dr. Renner at 5 AM on January 24, 2019. Disclaimer: Inadvertent spelling and grammatical errors are likely due to EHR/dictation software use and do not reflect on the overall quality of patient care. Note that the electronic time recorded on this note does not necessarily reflect the actual time of the patient encounter. Departure Diagnosis: Primary Impression: Abdominal pain Abdominal location: generalized Qualified Codes: R10.84 - Generalized abdominal pain Additional Impressions: Nausea and vomiting Vomiting type: unspecified Vomiting Intractability: intractable Qualified Codes: R11.2 - Nausea with vomiting, unspecified History of rectal cancer Normocytic anemia Thrombocytosis Hematuria Hematuria type: unspecified type Qualified Codes: R31.9 - Hematuria, uns pecified Condition: Serious TANIA QUEVEDO MD Jan 24, 2019 05:06
[2019-01-24] MEDS ORDERED: ONDANSETRON 4 MG INJ IV PRN ×2 (05:30→06:00)
[2019-01-24] MEDS ORDERED: ACETAMINOPHEN 325 MG TAB PO PRN ×2 (05:30→06:00)
[2019-01-24] MEDS ORDERED: SOD CHLORIDE 0.9% 1,000 ML IV SCH (05:44)
[2019-01-24] MEDS ORDERED: METOCLOPRAMIDE 10 MG INJ IV PRN (06:00)
[2019-01-24] MEDS ORDERED: NACL 0.9% 3 ML SYG IV SCH (06:00)
[2019-01-24] MEDS ORDERED: BISACODYL (EC) 5 MG TAB PO PRN (06:00)
[2019-01-24] MEDS ORDERED: DOCUSATE SODIUM 100 MG CAP PO PRN (06:00)
[2019-01-24] MEDS ORDERED: LORAZEPAM 2 MG INJ IV PRN (06:00)
[2019-01-24] MEDS ORDERED: HYDROmorphONE 1 MG/ML SYG IV PRN (06:00)
[2019-01-24] MEDS ORDERED: PANTOPRAZOLE 40 MG INJ IV SCH (06:00)
[2019-01-24] MEDS ORDERED: HYDROmorphONE 1 MG/ML SYG IV ONE ×2 (06:00→08:00)
--- NOTE | 2019-01-24 07:36 | HP ---
Date/Time of Note Date/Time of Note DATE: 01/24/19 TIME: 07:29 Assessment/Plan VTE Prophylaxis Pharmacological prophylaxis: LMWH Lines/Catheters IV [facility]ter Type (from [facility]): Saline Lock Assessment/Plan Hospital Course This is a 40-year-old male being admitted to the [facility] floor for: #1 intractable abdominal pain and nausea vomiting: Possibly secondary to gastroenteritis, chemotherapy. CT abdomen pelvis findings appear to be similar to prior CT scans in regards to patient's cancer. With the current time we will put the patient on a Dilaudid CLIENT ARCHITECT. Zofran for nausea. Will manage patient's pain and nausea vomiting. Once patient is able to tolerate p.o. we will resume patient's home Dilaudid as well as MS Contin. IV fluid hydration with normal saline. #2 rectal cancer: With possible metastasis. Once patient is able to tolerate p.o. consideration for continuing Xeloda. Consider consulting hematology . #3 DVT GI prophylaxis: Lovenox, no GI prophylaxis indicated Further treatment strategy will be implemented as per the clinical course. Result Diagram: 01/24/19 0128 01/24/19 0128 Results 24hrs Laboratory Tests Test 01/24/19 01:28 01/24/19 04:02 White Blood Count 8.0 Red Blood Count 3.88 L Hemoglobin 11.4 L Hematocrit 36.4 L Mean Corpuscular Volume 93.8 Mean Corpuscular Hemoglobin 29.4 Mean Corpuscular Hemoglobin Concent 31.3 L Red Cell Distribution Width 20.9 H Platelet Count 469 #H Mean Platelet Volume 9.1 Immature Granulocytes % 0.500 H Neutrophils % 74.8 Lymphocytes % 12.0 L Monocytes % 10.2 Eosinophils % 2.1 Basophils % 0.4 Nucleated Red Blood Cells % 0.0 Immature Granulocytes # 0.040 H Neutrophils # 6.0 Lymphocytes # 1.0 Monocytes # 0.8 Eosinophils # 0.2 Basophils # 0.0 Nucleated Red Blood Cells # 0.0 Sodium Level 144 Potassium Level 4.1 Chloride Level 104 Carbon Dioxide Level 28 Anion Gap 12 Blood Urea Nitrogen 11 Creatinine 0.67 Est Glomerular Filtrat Rate mL/min > 60 Glucose Level 105 Calcium Level 9.8 Total Bilirubin 0.2 Direct Bilirubin 0.00 Indirect Bilirubin 0.2 Aspartate Amino Transf (AST/SGOT) 25 Alanine Aminotransferase (ALT/SGPT) 8 L Alkaline Phosphatase 144 H Total Protein 7.9 Albumin 4.1 Globulin 3.80 H Albumin/Globulin Ratio 1.07 Lipase 177 Urine Color YELLOW Urine Clarity SLIGHTLY CLOUDY A Urine pH 6.0 Urine Specific Buckner 1.016 Urine Ketones NEGATIVE Urine Nitrite NEGATIVE Urine Bilirubin NEGATIVE Urine Urobilinogen 1+ H Urine Leukocyte Esterase NEGATIVE Urine Microscopic RBC 7 H Urine Microscopic WBC 2 Urine Amorphous Crystals FEW A Urine Bacteria FEW A Urine Mucus FEW A Urine Hemoglobin NEGATIVE Urine Glucose NEGATIVE Urine Total Protein NEGATIVE HPI/ROS Admit Date/Time Admit Date/Time Hx of Present Illness Chief complaint: Intractable abdominal pain and vomiting This is a 43-year-old male with a past medical history of rectal cancer with possible metastasis status post surgical resection currently on chemotherapy, chronic abdominal pain who is presenting with exacerbated abdominal pain, nausea, multiple episodes of nonbilious nonbloody vomiting. The patient does not endorse any constipation or diarrhea. He does not endorse any black or bloody or tarry stools. He does not endorse any dysuria or hematuria or urgency or frequency. The patient does have opiates and antiemetics at home, but he is not been able to keep them down due to vomiting. His riveter is . He is currently taking treatments of xeloda. Allergies: NKDA Medications: See RIANNA GROVER Const: As per HPI Eyes : No pain discharge or redness or change in visual acuity ENT: No pain, sore throat, congestion, congestion, dysphagia or discharge Respiratory: No shortness of breath, cough, sputum, wheezing, or pleuritic pain Cardiovascular: No chest pain, palpitation, PND, or edema GI : As per HPI Genitourinary: As per HPI Musculoskeletal: As per HPI Skin: No rash, bruising or hives Neuro: No headache, dizziness, syncope, seizure, focal weakness Endocrine: No polyuria, polydipsia, temperature intolerance Psych: No hallucination, depression, anxiety or suicidal ideation PMH/Family/Social Past Medical History Rectal cancer with possible metastasis Medications Current Medications Ondansetron HCl (Zofran Inj) 4 mg BRIDGE ORDER PRN IV NAUSEA/VOMITING; Start 01/24/19 at 05:30; Stop 01/25/19 at 05:29 Acetaminophen (Tylenol Tab) 650 mg ER BRIDGE PRN PO .MILD PAIN 1-3 OR TEMP; Start 01/24/19 at 05:30; Stop 01/25/19 at 05:29 Hydromorphone HCl (Dilaudid) 1 mg Q3H PRN IV SEVERE PAIN LEVEL 7-10; Start 01/24/19 at 06:00 Ondansetron HCl (Zofran Inj) 4 mg Q4H PRN IV NAUSEA AND/OR VOMITING; Start 01/24/19 at 06:00 Lorazepam (Ativan) 0.5 mg Q12 PRN IV ANXIETY; Start 01/24/19 at 06:00 Sodium Chloride 1,000 ml @ 80 mls/hr [id number] IV ; Start 01/24/19 at 05:44 IV Flush (NS 3 ml) 3 ml PER PROTOCOL IV ; Start 01/24/19 at 06:00 Metoclopramide HCl (Reglan) 10 mg Q6H PRN IV NAUSEA/VOMITING; Start 01/24/19 at 06:00 Acetaminophen (Tylenol Tab) 650 mg Q6H PRN PO .PAIN 1-3 OR TEMP; Start 01/24/19 at 06:00 Docusate Sodium (Colace) 100 mg Q12H PRN PO .CONSTIPATION; Start 01/24/19 at 06:00 Bisacodyl (Dulcolax) 5 mg DAILY PRN PO .CONSTIPATION; Start 01/24/19 at 06:00 Pantoprazole (Protonix Iv) 40 mg DAILY@06 IV ; Start 01/24/19 at 06:00 Coded Allergies: No Known Allergy (Unverified , 12/28/18) Past Surgical History Past Surgical Hx: bowel resection, other Family History Significant Family History: no pertinent family hx Social History Alcohol Use: none Smoking Status: Current every day smoker Drug Use: none Exam/Review of Systems Vital Signs Vitals Vital Signs Date Temp Pulse Resp B/P (MAP) Pulse Ox O2 O2 Flow FiO2 Time Delivery Rate 01/24/19 98.4 69 17 118/79 100 Room Air 07:24 (92) 69 Intake and Output 01/23/19 01/23/19 01/24/19 1515:00 23:00 07:00 IntakeIntake Total 1000 ml BalanceBalance 1000 ml Exam Exam General: Patient is currently lying in bed in moderate distress from abdominal pain HEENT: Atraumatic, normocephalic. The pupils are equal, round and reactive. Extraocular motor are intact Neck: Supple with full range of motion. No rigidity or meningismus Chest: Nontender Lungs: Clear to auscultation bilaterally no crackles rales or wheezing Heart: Normal S1-S2, Regular rhythm and rate. No murmur, S3, or S4 Abdomen: Soft, generalized tenderness to palpation Extremities: Normal to inspection, no edema no cyanosis Neurologic: Normal mental status, speech normal, cranial nerves II through XII are intact, motor and sensory are intact, no focal weakness Additional Comments PROCEDURE: CT Abdomen and Pelvis without contrast. CLINICAL INDICATION: Abdominal pain TECHNIQUE: CT scan of the abdomen and pelvis without contrast was performed on a multi-detector high-resolution CT scanner. Coronal and sagittal reformatted images obtained from the axial source images. Images were reviewed on a high- resolution PACS workstation. Exam CTDI 6.85 mGy Exam DLP 393.18 mGy-cm DICOM images are available. One or more of the following dose reduction techniques were utilized: 1.) Automated exposure control 2.) Adjustment of the mA +/- kV according to patient's size 3.) Use of iterative reconstruction technique. COMPARISON: CT 12/28/2018; CT 12/05/2018 FINDINGS: CT abdomen: LOWER THORAX: There is mild subsegmental atelectasis in the posterior left lung base. LIVER AND GALLBLADDER: The liver is mildly enlarged and measures 21 cm in length. No hepatic lesions otherwise demonstrated. Gallbladder is unremarkable. SPLEEN: Normal. PANCREAS: Normal. ADRENAL GLANDS: Normal. KIDNEYS: There are multiple small sub centimeter calcifications in both kidneys. No hydronephrosis or abnormal perinephric fluid. There is no evidence of a stone within either ureter. VASCULATURE: Scattered atherosclerotic calcifications noted along the nondilated infrarenal aorta. LYMPH NODES: No significant retroperitoneal or mesenteric lymphadenopathy. BOWEL AND MESENTERY: There is evidence of previous bowel surgery with anastomotic suture line in the low anterior abdomen. The small bowel is otherwise unremarkable and there is no evidence for obstruction. There is a moderate amount of retained stool within the large bowel. CT pelvis: The urinary bladder is unremarkable. There is generalized thickening of the large bowel in the region of the lower sigmoid colon and rectosigmoid junction and there is thickening of the lower presacral soft tissues. Bones: Regional bones are intact. Superficial soft tissues are unremarkable. IMPRESSION: 1. Circumferential thickening of the rectosigmoid colon, associated infiltration and thickening of the presacral soft tissues similar compared with imaging of 12/28/2018 and 12/05/2018. Findings may indicate prior colitis, cannot definitively exclude an underlying neoplastic process. MRI may be useful for further evaluation if clinically warranted. 2. Bilateral nephrolithiasis. No hydronephrosis or evidence of obstructive uropathy. 3. Previous small bowel surgery. No evidence for obstruction. 4. Mild hepatomegaly. RPTAT: [facility] Physician Denys Date Time Electronically viewed and signed by Physician Denys on 01/24/2019 04:03 xB/ CC: TANIA QUEVEDO MD [id number] JHONNY VÁSQUEZ Jan 24, 2019 07:36
[2019-01-24 07:45] VITALS: BP 112/60; PULSE 63; RESP 16
[2019-01-24 08:30] VITALS: Ht 177.8 cm; Wt 69.0 kg
[2019-01-24] MEDS ORDERED: ENOXAPARIN 40 MG/0.4 ML SYG SC SCH (09:30)
[2019-01-24] MEDS ORDERED: HYDROmorphONE 2 MG/ML SYG IV PRN (10:00)
[2019-01-24] MEDS: HYDROmorphONE 0.2 MG/ML PCA IV SCH ×2 (10:46→13:41)
--- NOTE | 2019-01-24 16:33 | DS ---
Date/Time of Note Date/Time of Note DATE: 01/24/19 TIME: 16:28 Discharge Summary Admission/Discharge Info Admit Date/Time Jan 24, 2019 at 05:28 Discharge Date/Time Jan 24, 2019 at 14:55 Discharge Diagnosis Opioid use disorder Chronic pain without clear anatomic source Patient Condition: Fair Consults None Procedures None Hx of Present Illness Chief complaint: Intractable abdominal pain and vomiting This is a 43-year-old male with a past medical history of rectal cancer status post surgical resection currently on chemotherapy, chronic abdominal pain who is presenting with exacerbated abdominal pain, nausea, multiple episodes of nonbilious nonbloody vomiting. The patient does not endorse any constipation or diarrhea. He does not endorse any black or bloody or tarry stools. He does not endorse any dysuria or hematuria or urgency or frequency. The patient does have opiates and antiemetics at home, but he is not been able to keep them down due to vomiting. 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 He is currently taking treatments of xeloda. Allergies: NKDA Medications: See [facility] Hospital Course The patient was admitted; due to his PO intolerance a dilaudid BRICKMASON was ordered. The patient refused the BRICKMASON and instead requested intermittent doses of high- dose IV hydromorphine. When this was ordered, he was concerned that q4h dosing was too infrequent and requested more frequent dosing. He did not have any episodes of vomiting after admission and was tolerating clear liquid diet. When his repeated requests for changes to therapy was declined, he left A. Home Meds Active Scripts Hydromorphone Hcl* (Dilaudid*) 2 Mg Tablet, 1 MG PO Q6H PRN for PAIN LEVEL 6-10, #10 TAB Prov:LORELEI NARVAEZ MD 12/30/18 Morphine Sulfate (Morphine Sulfate ER) 15 Mg Tablet.er, 15 MG PO BID for 10 Days, TAB Prov:LORLEEI NARVAEZ MD 12/30/18 Reported Medications Sennosides (SENNA CONCENTRATE) 8.6 Mg Tablet, 8.6 MG PO BID for 30 Days, #60 TAKE ONE TABLET BY MOUTH TWO TIMES A DAY 12/28/18 Docusate Sodium (Col-Rite) 100 Mg Capsule, 100 MG PO BID for 30 Days, #60 12/28/18 Prochlorperazine* (Prochlorperazine*) 10 Mg Tablet, 10 MG PO DAILY for 25 Days, #100 12/28/18 Pantoprazole* (Pantoprazole*) 40 Mg Tablet.dr, 40 MG PO DAILY for 30 Days, #60 12/28/18 Lorazepam* (Lorazepam*) 1 Mg Tablet, 1 MG PO HS PRN for ANXIETY, #30 TAB 12/04/18 Capecitabine* (Xeloda*) 500 Mg Tablet, 1500 MG PO BID, TAB 12/04/18 Amitriptyline Hcl* (Amitriptyline Hcl*) 25 Mg Tablet, 25 MG PO QHS for 30 Days, #30 TAB 12/04/18 Primary Care Provider Jennifer Downs Time spent on discharge: > 30 minutes Pending Labs Laboratory Tests Test 01/24/19 01:28 01/24/19 04:02 White Blood Count 8.0 10^3/ul (4.8-10.8) Red Blood Count 3.88 10^6/ul (4.70-6.10) Hemoglobin 11.4 g/dl (14.0-18.0) Hematocrit 36.4 % (42.0-52.0) Mean Corpuscular Volume 93.8 fl (82.0-101.0) Mean Corpuscular 29.4 pg (29.0-33.0) Hemoglobin Mean Corpuscular 31.3 g/dl (32.0-37.0) Hemoglobin Concent Red Cell Distribution 20.9 % (11.5-14.5) Width Platelet Count 469 10^3/UL (140-415) Mean Platelet Volume 9.1 fl (7.4-10.4) Immature Granulocytes % 0.500 % (0.001-0.429) Neutrophils % 74.8 % (39.0-77.0) Lymphocytes % 12.0 % (15.0-51.0) Monocytes % 10.2 % (0.0-11.0) Eosinophils % 2.1 % (0.0-7.0) Basophils % 0.4 % (0.0-2.0) Nucleated Red Blood Cells 0.0 /100WBC (0.0-0.0) % Immature Granulocytes # 0.040 10^3/ul (0.0-0.031) Neutrophils # 6.0 10^3/ul (1.6-7.5) Lymphocytes # 1.0 10^3/ul (0.8-2.9) Monocytes # 0.8 10^3/ul (0.3-0.9) Eosinophils # 0.2 10^3/ul (0.0-0.5) Basophils # 0.0 10^3/ul (0.0-0.1) Nucleated Red Blood Cells 0.0 10^3/ul (0.0-0.0) # Sodium Level 144 mmol/L (135-144) Potassium Level 4.1 mmol/L (3.5-5.1) Chloride Level 104 mmol/L (97-110) Carbon Dioxide Level 28 mmol/L (21-31) Anion Gap 12 (5-13) Blood Urea Nitrogen 11 mg/dl (7-20) Creatinine 0.67 mg/dl (0.61-1.24) Est Glomerular Filtrat > 60 mL/min (>60) Rate mL/min Glucose Level 105 mg/dl (70-220) Calcium Level 9.8 mg/dl (8.4-10.2) Total Bilirubin 0.2 mg/dl (0.2-1.3) Direct Bilirubin 0.00 mg/dl (0.00-0.20) Indirect Bilirubin 0.2 mg/dl (0-1.1) Aspartate Amino 25 IU/L (15-46) Transf (AST/SGOT) Alanine 8 IU/L (13-69) Aminotransferase (ALT/SGPT ) Alkaline Phosphatase 144 IU/L (42-121) Total Protein 7.9 g/dl (6.1-8.1) Albumin 4.1 g/dl (3.3-4.9) Globulin 3.80 g/dl (1.3-3.2) Albumin/Globulin Ratio 1.07 Lipase 177 U/L (23-300) Urine Color YELLOW (YELLOW) Urine Clarity SLIGHTLY CLOUDY (CLEAR) Urine pH 6.0 (5.0-9.0) Urine Specific [place] 1.016 (1.003-1.030) Urine Ketones NEGATIVE mg/dL (NEGATIVE) Urine Nitrite NEGATIVE mg/dL (NEGATIVE) Urine Bilirubin NEGATIVE mg/dL (NEGATIVE) Urine Urobilinogen 1+ mg/dL (NEGATIVE) Urine Leukocyte Esterase NEGATIVE Araceli/ul Urine Microscopic RBC 7 /HPF (0-5) Urine Microscopic WBC 2 /HPF (0-5) Urine Amorphous Crystals FEW /HPF (NONE SEEN) Urine Bacteria FEW /HPF (NONE SEEN) Urine Mucus FEW /HPF (NONE SEEN) Urine Hemoglobin NEGATIVE mg/dL (NEGATIVE) Urine Glucose NEGATIVE mg/dL (NEGATIVE) Urine Total Protein NEGATIVE mg/dl (NEGATIVE) MITCHEL PFEIFFER MD Jan 24, 2019 16:33
[2019-01-25] MEDS ORDERED: HYDR-3609 ORAL (09:05)
[2019-01-25] MEDS ORDERED: HYDR4TAB ORAL (09:05)
== END 2019-01-24 14:55 | disposition left against medical advice (07) | DRG 392 ==
LOC: E/R 01:02 → MS1 05:28 → CANRESERV 06:09 → MS1 07:33
PROVIDERS: ADMIT Family Medicine; ATTEND Internal Medicine
DX: R10.84 Generalized abdominal pain (principal); C20 Malignant neoplasm of rectum; R11.2 Nausea with vomiting, unspecified; F17.200 Nicotine dependence, unspecified, uncomplicated; F11.10 Opioid abuse, uncomplicated; R31.9 Hematuria, unspecified; Z53.21 Procedure and treatment not carried out due to patient leaving prior to being seen by health care provider; Z76.5 Malingerer [conscious simulation]; G89.29 Other chronic pain
CPT/HCPCS: 36415; 74176; 80053; 81001; 81003; 83690; 85025; 96361; 96374; 96375; 96376; C9113; J1170; J2060; J2270; J2405; J2765; J7030

== ENCOUNTER 2019-01-25 07:37 | Inpatient (IN) | payer OTHER ==
[~2019-01-25] VITALS: Ht 177.8 cm; Wt 66.2 kg
[2019-01-25] MEDS ORDERED: ONDANSETRON 4 MG INJ IV STA (07:42)
[2019-01-25] MEDS ORDERED: SOD CHLORIDE 0.9% 1,000 ML IV STA (07:42)
[2019-01-25] MEDS ORDERED: HYDROmorphONE 1 MG/ML SYG IV STA (07:42)
--- NOTE | 2019-01-25 07:55 | ERD ---
ER Documentation Chief Complaint Chief Complaint nausea vomiting x 2 days with abdominal pain HPI 43-year-old gentleman with a known history of metastatic colon cancer who presents with nausea and vomiting. The patient was just seen here yesterday and left AGAINST MEDICAL ADVICE. He has persistent abdominal discomfort, nausea and vomiting that is nonbloody nonbilious. Patient states that he has persistent vomiting while at home. Pain is diffuse to the abdomen and similar to chronic pain. 8 out of 10 currently. ROS All systems reviewed and are negative except as per history of present illness. Medications Home Meds Active Scripts Hydromorphone Hcl* (Dilaudid*) 2 Mg Tablet, 1 MG PO Q6H PRN for PAIN LEVEL 6-10, #10 TAB Prov:LORELEI NARVAEZ MD 12/30/18 Reported Medications Hydromorphone Hcl (Dilaudid) 4 Mg Tab, 1 TAB ORAL Q2H PRN for SEVERE PAIN LEVEL 7-10 01/25/19 Hydrocodone/Acetaminophen (Hydrocodone-Acetamin 10-325 mg) 1 Each Tablet, 1 TAB ORAL Q4 PRN for PAIN LEVEL 6-10 01/25/19 Sennosides (SENNA CONCENTRATE) 8.6 Mg Tablet, 8.6 MG PO BID for 30 Days, #60 TAKE ONE TABLET BY MOUTH TWO TIMES A DAY 12/28/18 Docusate Sodium (Col-Rite) 100 Mg Capsule, 100 MG PO BID for 30 Days, #60 12/28/18 Lorazepam* (Lorazepam*) 1 Mg Tablet, 1 MG PO HS PRN for ANXIETY, #30 TAB 12/04/18 Capecitabine* (Xeloda*) 500 Mg Tablet, 1500 MG PO BID, TAB 12/04/18 Amitriptyline Hcl* (Amitriptyline Hcl*) 25 Mg Tablet, 25 MG PO QHS for 30 Days, #30 TAB 12/04/18 Discontinued Reported Medications Prochlorperazine* (Prochlorperazine*) 10 Mg Tablet, 10 MG PO DAILY for 25 Days, #100 12/28/18 Pantoprazole* (Pantoprazole*) 40 Mg Tablet.dr, 40 MG PO DAILY for 30 Days, #60 12/28/18 Discontinued Scripts Morphine Sulfate (Morphine Sulfate ER) 15 Mg Tablet.er, 15 MG PO BID for 10 Days, TAB Prov:LORELEI NARVAEZ MD 12/30/18 Allergies Allergies: Coded Allergies: No Known Allergy (Unverified , 12/28/18) PMhx/Soc History of Surgery: Yes Anesthesia Reaction: No Hx 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 Disorder: No Hx Respiratory Disorders: No Hx Cardiac Disorders: No Hx Psychiatric Problems: No Hx Miscellaneous Medical Probl: Yes (Rectal cancer) Hx Alcohol Use: No Hx Substance Use: No Hx Tobacco Use: Yes FmHx Family History: No diabetes Physical Exam Vitals Vital Signs Date Temp Pulse Resp B/P (MAP) Pulse Ox O2 O2 Flow FiO2 Time Delivery Rate 01/25/19 70 17 157/97 100 Room Air 08:22 (117) 01/25/19 98.0 67 18 200/103 100 07:44 (135) Physical Exam General: Uncomfortable, dehydrated, dry heaving Head: Normocephalic, atraumatic. Eyes: Pupils equally reactive, EOM intact ENT: Dry mucous membranes Neck: Supple, no lymphadenopathy Respiratory: Lungs clear bilaterally, no distress Cardiovascular: RRR, no murmurs, rubs, or gallops Abdominal: Soft, mild generalized tenderness without peritonitis or localization : Deferred MSK: No edema, no unilateral swelling, 5/5 strength Neurologic: Alert and oriented, moving all extremities, normal speech, no focal weakness, no cerebellar signs Skin: No rash Psych: Normal mood Result Diagram: 01/25/1980401/25/19 08 Results 24 hrs Laboratory Tests Test 01/25/19 08:05 White Blood Count 7.7 10^3/ul Red Blood Count 3.72 10^6/ul Hemoglobin 11.0 g/dl Hematocrit 34.6 % Mean Corpuscular Volume 93.0 fl Mean Corpuscular Hemoglobin 29.6 pg Mean Corpuscular Hemoglobin Concent 31.8 g/dl Red Cell Distribution Width 21.2 % Platelet Count 447 10^3/UL Mean Platelet Volume 8.9 fl Immature Granulocytes % 0.500 % Neutrophils % 79.5 % Lymphocytes % 8.6 % Monocytes % 9.7 % Eosinophils % 1.3 % Basophils % 0.4 % Nucleated Red Blood Cells % 0.0 /100WBC Immature Granulocytes # 0.040 10^3/ul Neutrophils # 6.1 10^3/ul Lymphocytes # 0.7 10^3/ul Monocytes # 0.8 10^3/ul Eosinophils # 0.1 10^3/ul Basophils # 0.0 10^3/ul Nucleated Red Blood Cells # 0.0 10^3/ul Sodium Level 142 mmol/L Potassium Level 3.9 mmol/L Chloride Level 104 mmol/L Carbon Dioxide Level 27 mmol/L Anion Gap 11 Blood Urea Nitrogen 7 mg/dl Creatinine 0.71 mg/dl Est Glomerular Filtrat Rate mL/min > 60 mL/min Glucose Level 129 mg/dl Calcium Level 9.6 mg/dl Current Medications Medications Dose Sig/Devan Start Time Status Last (Trade) Ordered Route PRN Stop Time Admin Dose Reason Admin Sodium 1,000 ml @ Q1H STAT 01/25/19 DC 01/25/19 Chloride 1,000 mls/hr IV 07:42 01/25/19 07:56 08:41 2 mg ONCE STAT 01/25/19 DC 01/25/19 Hydromorphone IV 07:42 01/25/19 07:56 HCl 07:43 (Dilaudid) Ondansetron 4 mg ONCE STAT 01/25/19 DC 01/25/19 HCl (Zofran IV 07:42 01/25/19 07:56 Inj) 07:43 Ondansetron 4 mg BRIDGE ORDER 01/25/19 DC 01/25/19 HCl (Zofran PRN IV 08:30 01/25/19 08:44 Inj) NAUSEA/VOMITI 10:53 NG 650 mg ER BRIDGE 01/25/19 DC Acetaminophen PRN PO 08:30 01/25/19 (Tylenol .MILD PAIN 10:53 Tab) 1-3 OR TEMP Lorazepam 1 mg ONCE ONCE 01/25/19 DC 01/25/19 (Ativan) IV 08:30 01/25/19 08:44 08:31 Procedures/MDM LAB INTERPRETATION: I reviewed the laboratory testing and it shows [no evidence of acute process] MEDICAL DECISION MAKING: Patient presents with persistent nausea and vomiting likely consistent with his metastatic disease process. The patient is a good candidate for palliative care consultation and chronic pain consultation. Patient has a frequency of visits for similar. Patient likely has end-stage disease process. I will reach out to his oncologist, Dr. Mccoy Patient will benefit from hospitalization and is agreeable at this time. ER COURSE: * Patient given IV fluids pain and nausea medication. * After speaking with his Oncologist, patient is disease free therefore palliative consult unlikely necessary. The patient does smoke marijuana on a regular basis, consider cyclic vomiting syndrome and gastroparesis in this patient. The patient may benefit from a chronic pain consult. CONSULTATION: Hematology oncology: Dr. Mccoy DISPOSITION PLAN: Accepting care team and consultations: I discussed the current laboratory data, diagnostic imaging and emergency care provided. Admitting team: Panel team notified via telemediq Admitting team indication: Insurance directed Departure Diagnosis: Primary Impression: Nausea and vomiting Vomiting type: unspecified Vomiting Intractability: intractable Qualified Codes: R11.2 - Nausea with vomiting, unspecified Additional Impressions: Abdominal pain Abdominal location: generalized Qualified Codes: R10.84 - Generalized abdominal pain Chronic generalized abdominal pain Dehydration, moderate Condition: Stable MATEO LOW MD Jan 25, 2019 07:55
[2019-01-25] MEDS ORDERED: ACETAMINOPHEN 325 MG TAB PO PRN ×2 (08:30→11:00)
[2019-01-25] MEDS ORDERED: ONDANSETRON 4 MG INJ IV PRN ×2 (08:30→11:00)
[2019-01-25] MEDS ORDERED: LORAZEPAM 2 MG INJ IV ONE (08:30)
[2019-01-25] MEDS ORDERED: HYDR4TAB ORAL (09:05)
[2019-01-25] MEDS ORDERED: HYDR-3609 ORAL (09:05)
[2019-01-25 09:45] VITALS: Ht 177.8 cm; Wt 66.2 kg
[2019-01-25 09:46] VITALS: BP 126/69; PULSE 74; RESP 18
[2019-01-25] MEDS ORDERED: HYDROCODONE/APAP (5/325) TAB PO PRN (11:00)
[2019-01-25] MEDS ORDERED: NACL 0.9% 3 ML SYG IV SCH (11:00)
[2019-01-25] MEDS ORDERED: LORAZEPAM 1 MG TAB PO PRN (11:00)
[2019-01-25] MEDS ORDERED: HYDROmorphONE 0.5 MG/0.5 ML SYG IV PRN (11:00)
[2019-01-25] MEDS: HYDROmorphONE 2 MG/ML SYG IV PRN ×6 (12:05→22:41)
[2019-01-25] MEDS: SOD CHLORIDE 0.9% 1,000 ML IV SCH ×2 (12:06→17:00)
--- NOTE | 2019-01-25 12:17 | HP ---
Date/Time of Note Date/Time of Note DATE: 01/25/19 TIME: 12:02 Assessment/Plan VTE Prophylaxis Risk score (from Ns)>0 risk: 1 SCD applied (from Ns): Yes Pharmacological prophylaxis: NA/contraindicated Pharm contraindication: low risk/ambulating Lines/Catheters IV Catheter Type (from Nrsg): Peripheral IV Urinary Cath still in place: No Assessment/Plan Hospital Course SUBJECTIVE: Lying in bed, nauseated. Having generalized abdominal pain. OBJECTIVE: Vital signs-see below PHYSICAL EXAM: Constitutional: Well-developed, well-nourished, not in acute distress. HEENT: Head atraumatic and normocephalic. Eyes: Extraocular muscles intact. Anicteric sclerae. Pupils equal bilaterally, reactive to light. NECK: Supple without lymph node. CHEST: Clear and good breath sounds equally. No wheezing. No rhonchi. HEART: S1, S2. Regular rate and rhythm. ABDOMEN: +Tenderness lower abd. Soft. Bowel sounds were present. EXTREMITIES: Full range of motion in all the extremities. No cyanosis, clubbing or edema. NEUROLOGIC: Alert and oriented x3. No focal deficit. No sensory deficit. PSYCHOSOCIAL: In a good mood. No signs of depression. INTEGUMENTARY: Moist mucous membranes. Good skin turgor, intact. ASSESSMENT AND PLAN:43-year-old male with history of rectal cancer, status post surgical resection with completion of radiation and 6-week chemo course, now on Xeloda adjunctive cycle which he is finishing up this month, chronic pain syndrome with opioid dependency, cannabis dependency, cyclic vomiting syndrome, admitted with intractable nausea/vomiting/severe abdominal pain started 4 days ago. 1. Cannabis Cyclic vomiting syndrome -Please note that patient is also on Xeloda which also possibly contributing to the severity of symptoms but -on abortive therapy w/Zofran/TCA -Cessation advised. 2. Acute on chronic pain syndrome with opioid disorders -Patient is not receptive to any other pain regimen other than Dilaudid. At this time, since patient is in acute pain, we will continue with IV Dilaudid over the next 24 hours with slow weaning to p.o. -I also encourage patient and his family to follow-up at the pain clinic after discharge. 3. History of rectal cancer -Status post surgical resection, completion of radiation/6-week chemo, now on Xeloda abdomen day cycle weight patient is finishing up this month. -Outpatient oncology follow-up 4. Chronic anemia -Stable H&H. Continue to monitor. 5. Mild thrombocytosis, likely dehydration -We will give IV fluids 6.Tobacco/Cannabinoid use -counselled DVT prophylaxis: SCD/ambulation. PUD prophylaxis: Pepcid CODE STATUS: Full code Diet: Clear diet and advance as tolerated. Rest of the management depend on hospital course. Approximately 60 minutes was spent on this history and physical. Patient was seen in collaboration with Result Diagram: 01/25/1980401/25/19804 Results 24hrs Laboratory Tests Test 01/25/19 08:05 White Blood Count 7.7 Red Blood Count 3.72 L Hemoglobin 11.0 L Hematocrit 34.6 L Mean Corpuscular Volume 93.0 Mean Corpuscular Hemoglobin 29.6 Mean Corpuscular Hemoglobin Concent 31.8 L Red Cell Distribution Width 21.2 H Platelet Count 447 H Mean Platelet Volume 8.9 Immature Granulocytes % 0.500 H Neutrophils % 79.5 H Lymphocytes % 8.6 L Monocytes % 9.7 Eosinophils % 1.3 Basophils % 0.4 Nucleated Red Blood Cells % 0.0 Immature Granulocytes # 0.040 H Neutrophils # 6.1 Lymphocytes # 0.7 L Monocytes # 0.8 Eosinophils # 0.1 Basophils # 0.0 Nucleated Red Blood Cells # 0.0 Sodium Level 142 Potassium Level 3.9 Chloride Level 104 Carbon Dioxide Level 27 Anion Gap 11 Blood Urea Nitrogen 7 Creatinine 0.71 Est Glomerular Filtrat Rate mL/min > 60 Glucose Level 129 Calcium Level 9.6 HPI/ROS Admit Date/Time Admit Date/Time Jan 25, 2019 at 08:31 Hx of Present Illness This a 43-year-old male with history of rectal cancer, status post surgical resection with completion of radiation and 6-week chemo course, now on Xeloda adjunctive cycle which he is finishing up this month, chronic pain syndrome with opioid dependency, cannabis dependency, cyclic vomiting syndrome, admitted with intractable nausea/vomiting/abdominal pain started 4 days ago. Apparently, patient was admitted yesterday at [facility] for same reason and he went AGAINST MEDICAL ADVICE as patient was not happy with his pain regimen on [employer]ACH[employer]PER[employer]. He denied chest pain, palpitation, shortness of breath, numbness, tingling, diarrhea, fever, chills, constipation or others. Patient has been having cyclic vomiting syndrome which happens every month. He also takes Dilaudid 4 mg p.o. every 4 hours at home for severe pain and Percocet for moderate pain. Patient never had any follow-up I did pain management clinic. Labs stable except for hemoglobin 11.0, hematocrit 34.6, platelet 447. Patient received a dose of Zofran in the emergency room for nausea. He also got a dose of Dilaudid 2 mg IV in the emergency room and he is already asking for pain medication. He has not had any emesis. ROS A 12 point review of system was assessed and is negative other than what is mentioned in the HPI. PMH/Family/Social Past Medical History See HPI Medications Current Medications Sodium Chloride 1,000 ml @ 80 mls/hr [id number] IV ; Start 01/25/19 at 10:46 IV Flush (NS 3 ml) 3 ml PER PROTOCOL IV ; Start 01/25/19 at 11:00 Ondansetron HCl (Zofran Inj) 4 mg Q6H PRN IV NAUSEA/VOMITING; Start 01/25/19 at 11:00 Acetaminophen (Tylenol Tab) 650 mg Q6H PRN PO .PAIN 1-3 OR TEMP; Start 01/25/19 at 11:00 Acetaminophen/ Hydrocodone Bitart ([place] (5/325)) 1 tab Q6H PRN PO .MOD PAIN 4- 6; Start 01/25/19 at 11:00 Hydromorphone HCl (Dilaudid) 0.5 mg Q4H PRN IV .SEVERE PAIN 7-10; Start 01/25/19 at 11:00 Famotidine (Pepcid) 20 mg Q12 PO ; Start 01/25/19 at 21:00 Enoxaparin Sodium (Lovenox) 40 mg DAILY SC ; Start 01/26/19 at 09:00 Amitriptyline HCl (Elavil) 25 mg QHS PO ; Start 01/25/19 at 21:00 Capecitabine (Xeloda) 1,500 mg BID PO ; Start 01/25/19 at 21:00 Docusate Sodium (Colace) 100 mg BID PO ; Start 01/25/19 at 21:00 Lorazepam (Ativan) 1 mg HS PRN PO ANXIETY; Start 01/25/19 at 11:00 Senna (Senokot) 1 tab BID PO ; Start 01/25/19 at 21:00 Hydromorphone HCl (Dilaudid) 2 mg Q2H PRN IV SEVERE PAIN LEVEL 7-10; Start 01/25/19 at 12:00 Coded Allergies: No Known Allergy (Unverified , 12/28/18) Past Surgical History See HPI Past Surgical Hx: bowel resection, other Family History Significant Family History: no pertinent family hx Social History Current everyday tobacco use, cannabis use. 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
[2019-01-25] MEDS ORDERED: SOD CHLORIDE 0.9% 1,000 ML IV ONE (12:30)
--- NOTE | 2019-01-25 13:56 | CONS ---
Assessment/Plan Assessment/Plan Hospital Course (Demo Recall) 43 yo male with #rectal ca, MSI stable, T3 lesion with perirectal LAD -s/p Xeloda 1500 mg p.o. b.i.d. with radiation . s/p 6 week course completed 2 weeks ago, early -now on cycle 4 of Xeloda monotherapy. to complete his adjuvant chemotherapy course in 2 weeks -thus far scans are stable and do not reveal evidence of recurrence. #Nausea -pt has had issues with chronic nausea even before starting chemotherapy -he has been instructed to take Zofran 16mg po bID with compazine 10 and reglan alternating for breakthrough nausea. He also had Ativen 1mg to take in the evenings for breakthrough nausea -can continue IV antiemetics and IV hydration while in the hospital Thank you for the opportunity to participate in this patients care A total of 40 minutes of face to face time was spent speaking with the patient, of which greater than 50% was spent in counseling and coordination of care and the detailed question and answer session. Consultation Date/Type/Reason Admit Date/Time Jan 25, 2019 at 08:31 Date of Consultation: Jan 25, 2019 Type of Consult oncology Reason for Consultation rectal cancer Requesting Provider: MATEO LWO MD Date/Time of Note DATE: 01/25/19 TIME: 13:39 Hx of Present Illness 43 yo with history of rectal cancer. His history is as followsL 12/25/[address] Ruiz and underwent EGD and colonoscopy which demonstrated a large rectal tumor extending up to 5 cm from anus.Path showed an invasive moderately differentiated adenocarcinoma. 01/27/18 pt started neoadjuvant concurrent chemotherapy with radiation 05/15/18 Pt underwent APR which revealed 5mm residual adenocarcinoma , grade 2, with tumor invading through muscularis propria into the pericolorectal tissue. all margins were uninvolved with disease. all 0/9 LN without disease. post op course was complicated by abscess and bleeding. pt has since recovered 10/07/[address] demonstrates post surgical changes 11/09/18 pt received cycle 1 of Xelox Currently -01/24/2019 pt admitted for intractable nausea. Pt has had many admission for similar complaints. He states he takes 1 zofran in the morning and takes other nausea meds throughout the day but cannot recall the names. CT A/P reveals Circumferential thickening of the rectosigmoid colon, associated infiltration and thickening of the presacral soft tissues similar compared with imaging of 12/28/2018 and 12/05/2018. Findings may indicate prior colitis, cannot definitively exclude an underlying neoplastic process. - Constitutional: diaphoresis, poor po Eyes: no complaints Gastrointestinal: pain, constipation, decreased appetite, nausea, vomiting Genitourinary: no complaints Musculoskeletal: no complaints Skin: no complaints Neurologic: no complaints Past Medical History kidney stones s/p lithotripsy Medical History: no pertinent history Home Meds Active Scripts Hydromorphone Hcl* (Dilaudid*) 2 Mg Tablet, 1 MG PO Q6H PRN for PAIN LEVEL 6-10, #10 TAB Prov:LORELEI NARVAEZ MD 12/30/18 Reported Medications Hydromorphone Hcl (Dilaudid) 4 Mg Tab, 1 TAB ORAL Q2H PRN for SEVERE PAIN LEVEL 7-10 01/25/19 Hydrocodone/Acetaminophen (Hydrocodone-Acetamin 10-325 mg) 1 Each Tablet, 1 TAB ORAL Q4 PRN for PAIN LEVEL 6-10 01/25/19 Sennosides (SENNA CONCENTRATE) 8.6 Mg Tablet, 8.6 MG PO BID for 30 Days, #60 TAKE ONE TABLET BY MOUTH TWO TIMES A DAY 12/28/18 Docusate Sodium (Col-Rite) 100 Mg Capsule, 100 MG PO BID for 30 Days, #60 12/28/18 Lorazepam* (Lorazepam*) 1 Mg Tablet, 1 MG PO HS PRN for ANXIETY, #30 TAB 12/04/18 Capecitabine* (Xeloda*) 500 Mg Tablet, 1500 MG PO BID, TAB 12/04/18 Amitriptyline Hcl* (Amitriptyline Hcl*) 25 Mg Tablet, 25 MG PO QHS for 30 Days, #30 TAB 12/04/18 Discontinued Reported Medications Prochlorperazine* (Prochlorperazine*) 10 Mg Tablet, 10 MG PO DAILY for 25 Days, #100 12/28/18 Pantoprazole* (Pantoprazole*) 40 Mg Tablet.dr, 40 MG PO DAILY for 30 Days, #60 12/28/18 Discontinued Scripts Morphine Sulfate (Morphine Sulfate ER) 15 Mg Tablet.er, 15 MG PO BID for 10 Days, TAB Prov:LORELEI NARVAEZ MD 12/30/18 Medications Current Medications Sodium Chloride 1,000 ml @ 80 mls/hr [id number] IV Last administered on 01/25/19at 12:06; Admin Dose 80 MLS/HR; Start 01/25/19 at 10:46 IV Flush (NS 3 ml) 3 ml PER PROTOCOL IV ; Start 01/25/19 at 11:00 Ondansetron HCl (Zofran Inj) 4 mg Q6H PRN IV NAUSEA/VOMITING Last administered on 01/25/19at 12:11; Admin Dose 4 MG; Start 01/25/19 at 11:00 Acetaminophen (Tylenol Tab) 650 mg Q6H PRN PO .PAIN 1-3 OR TEMP; Start 01/25/19 at 11:00 Acetaminophen/ Hydrocodone Bitart ([place] (5/325)) 1 tab Q6H PRN PO .MOD PAIN 4- 6; Start 01/25/19 at 11:00 Hydromorphone HCl (Dilaudid) 0.5 mg Q4H PRN IV .SEVERE PAIN 7-10; Start 01/25/19 at 11:00 Famotidine (Pepcid) 20 mg Q12 PO ; Start 01/25/19 at 21:00 Amitriptyline HCl (Elavil) 25 mg QHS PO ; Start 01/25/19 at 21:00 Capecitabine (Xeloda) 1,500 mg BID PO ; Start 01/25/19 at 21:00 Docusate Sodium (Colace) 100 mg BID PO ; Start 01/25/19 at 21:00 Lorazepam (Ativan) 1 mg HS PRN PO ANXIETY; Start 01/25/19 at 11:00 Senna (Senokot) 1 tab BID PO ; Start 01/25/19 at 21:00 Hydromorphone HCl (Dilaudid) 2 mg Q2H PRN IV SEVERE PAIN LEVEL 7-10 Last administered on 01/25/19at 12:05; Admin Dose 2 MG; Start 01/25/19 at 12:00 Sodium Chloride 1,000 ml @ 250 mls/hr Q4H ONCE IV ; Start 01/25/19 at 12:30; St op 01/25/19 at 16:29 Allergies: Coded Allergies: No Known Allergy (Unverified , 12/28/18) Past Surgical History Past Surgical Hx: bowel resection, other Family History Significant Family History: no pertinent family hx Social History Alcohol Use: sober Smoking Status: Current every day smoker Drug Use: marijuana Exam/Review of Systems Exam Vitals Vital Signs Date Temp Pulse Resp B/P (MAP) Pulse Ox O2 O2 Flow FiO2 Time Delivery Rate 01/25/19 97.8 74 18 126/69 99 Room Air 09:46 (88) Constitutional: alert, oriented Psych: anxiety, depression Head: normocephalic Eyes: nl conjunctiva ENMT: nl external ears & nose Neck: supple Respiratory: clear to auscultation Cardiovascular: regular rate and rhythm Gastrointestinal: soft Musculoskeletal: nl extremities to inspection Results Result Diagram: 01/25/19 0805 01/25/19 0805 Results 24hrs Laboratory Tests Test 01/25/19 08:05 White Blood Count 7.7 Red Blood Count 3.72 L Hemoglobin 11.0 L Hematocrit 34.6 L Mean Corpuscular Volume 93.0 Mean Corpuscular Hemoglobin 29.6 Mean Corpuscular Hemoglobin Concent 31.8 L Red Cell Distribution Width 21.2 H Platelet Count 447 H Mean Platelet Volume 8.9 Immature Granulocytes % 0.500 H Neutrophils % 79.5 H Lymphocytes % 8.6 L Monocytes % 9.7 Eosinophils % 1.3 Basophils % 0.4 Nucleated Red Blood Cells % 0.0 Immature Granulocytes # 0.040 H Neutrophils # 6.1 Lymphocytes # 0.7 L Monocytes # 0.8 Eosinophils # 0.1 Basophils # 0.0 Nucleated Red Blood Cells # 0.0 Sodium Level 142 Potassium Level 3.9 Chloride Level 104 Carbon Dioxide Level 27 Anion Gap 11 Blood Urea Nitrogen 7 Creatinine 0.71 Est Glomerular Filtrat Rate mL/min > 60 Glucose Level 129 Calcium Level 9.6 Medications Medication Current Medications Sodium Chloride 1,000 ml @ 80 mls/hr [id number] IV Last administered on 01/25/19at 12:06; Admin Dose 80 MLS/HR; Start 01/25/19 at 10:46 IV Flush (NS 3 ml) 3 ml PER PROTOCOL IV ; Start 01/25/19 at 11:00 Ondansetron HCl (Zofran Inj) 4 mg Q6H PRN IV NAUSEA/VOMITING Last administered on 01/25/19at 12:11; Admin Dose 4 MG; Start 01/25/19 at 11:00 Acetaminophen (Tylenol Tab) 650 mg Q6H PRN PO .PAIN 1-3 OR TEMP; Start 01/25/19 at 11:00 Acetaminophen/ Hydrocodone Bitart ([place] (5/325)) 1 tab Q6H PRN PO .MOD PAIN 4- 6; Start 01/25/19 at 11:00 Hydromorphone HCl (Dilaudid) 0.5 mg Q4H PRN IV .SEVERE PAIN 7-10; Start 01/25/19 at 11:00 Famotidine (Pepcid) 20 mg Q12 PO ; Start 01/25/19 at 21:00 Amitriptyline HCl (Elavil) 25 mg QHS PO ; Start 01/25/19 at 21:00 Capecitabine (Xeloda) 1,500 mg BID PO ; Start 01/25/19 at 21:00 Docusate Sodium (Colace) 100 mg BID PO ; Start 01/25/19 at 21:00 Lorazepam (Ativan) 1 mg HS PRN PO ANXIETY; Start 01/25/19 at 11:00 Senna (Senokot) 1 tab BID PO ; Start 01/25/19 at 21:00 Hydromorphone HCl (Dilaudid) 2 mg Q2H PRN IV SEVERE PAIN LEVEL 7-10 Last administered on 01/25/19at 12:05; Admin Dose 2 MG; Start 01/25/19 at 12:00 Sodium Chloride 1,000 ml @ 250 mls/hr Q4H ONCE IV ; Start 01/25/19 at 12:30; Stop 01/25/19 at 16:29 MIMI ZENDEJAS M.D. Jan 25, 2019 13:49
[2019-01-25 15:15] VITALS: BP 121/62; PULSE 76; RESP 19
[2019-01-25] MEDS: ONDANSETRON 4 MG INJ IV PRN (17:00)
[2019-01-25 20:00] VITALS: BP 133/72; PULSE 64; RESP 18
[2019-01-25] MEDS: FAMOTIDINE 20 MG TAB PO SCH (20:29)
[2019-01-25] MEDS: DOCUSATE SODIUM 100 MG CAP PO SCH (20:29)
[2019-01-25] MEDS: SENNA TAB PO SCH (20:29)
[2019-01-25] MEDS ORDERED: AMITRIPTYLINE 25 MG TAB PO SCH (21:00)
[2019-01-25] MEDS ORDERED: CAPECITABINE 500 MG TAB PO SCH (21:00)
[2019-01-26] MEDS: HYDROmorphONE 2 MG/ML SYG IV PRN ×7 (00:31→13:02)
[2019-01-26 01:55] VITALS: BP 126/74; PULSE 60; RESP 18
[2019-01-26] MEDS: SOD CHLORIDE 0.9% 1,000 ML IV SCH ×2 (06:53→11:46)
[2019-01-26 08:31] VITALS: BP 123/73; PULSE 55; RESP 18
[2019-01-26] MEDS ORDERED: NICOTINE (21 MG/24 HR) PATCH TRANSDERM SCH (09:00)
[2019-01-26] MEDS ORDERED: ENOXAPARIN 40 MG/0.4 ML SYG SC SCH (09:00)
[2019-01-26] MEDS: ONDANSETRON 4 MG INJ IV PRN ×2 (09:00→13:02)
[2019-01-26] MEDS: DOCUSATE SODIUM 100 MG CAP PO SCH (09:06)
[2019-01-26] MEDS: SENNA TAB PO SCH (09:06)
[2019-01-26] MEDS: FAMOTIDINE 20 MG TAB PO SCH (09:06)
--- NOTE | 2019-01-26 09:10 | CONS ---
Assessment/Plan Assessment/Plan Hospital Course (Demo Recall) 43 yo male with #rectal ca, MSI stable, T3 lesion with perirectal LAD -s/p Xeloda 1500 mg p.o. b.i.d. with radiation . s/p 6 week course completed 2 weeks ago, early -now on cycle 4 of Xeloda monotherapy. to complete his adjuvant chemotherapy course in 2 weeks -thus far scans are stable and do not reveal evidence of recurrence. #Nausea -pt has had issues with chronic nausea even before starting chemotherapy -he has been instructed to take Zofran 16mg po bID with compazine 10 and reglan alternating for breakthrough nausea. He also had Ativen 1mg to take in the evenings for breakthrough nausea -can continue IV antiemetics and IV hydration while in the hospital Thank you for the opportunity to participate in this patients care A total of 40 minutes of face to face time was spent speaking with the patient, of which greater than 50% was spent in counseling and coordination of care and the detailed question and answer session. Consultation Date/Type/Reason Admit Date/Time Jan 25, 2019 at 08:31 Initial Consult Date 01/25/19 Type of Consult oncology Reason for Consultation rectal cancer Requesting Provider: MATEO LOW MD Date/Time of Note DATE: 01/26/19 TIME: 09:07 24 HR Interval Summary Free Text/Dictation no acute overnight events. nausea has improved Exam/Review of Systems Exam Vitals Vital Signs Date Temp Pulse Resp B/P (MAP) Pulse Ox O2 O2 Flow FiO2 Time Delivery Rate 01/26/19 98.5 55 18 123/73 98 Room Air 08:31 (90) Intake and Output 01/25/19 01/25/19 01/26/19 1414:59 22:59 06:59 IntakeIntake Total 1540 ml 1220 ml BalanceBalance 1540 ml 1220 ml Constitutional: alert, oriented Psych: anxiety, depression Head: normocephalic Eyes: nl conjunctiva ENMT: nl external ears & nose Neck: supple Respiratory: clear to auscultation Cardiovascular: regular rate and rhythm Gastrointestinal: soft Musculoskeletal: nl extremities to inspection Results Result Diagram: 01/26/19 0452 01/26/19 0452 Results 24hrs Laboratory Tests Test 01/26/19 04:52 White Blood Count 6.3 Red Blood Count 3.50 L Hemoglobin 10.3 L Hematocrit 32.9 L Mean Corpuscular Volume 94.0 Mean Corpuscular Hemoglobin 29.4 Mean Corpuscular Hemoglobin Concent 31.3 L Red Cell Distribution Width 20.9 H Platelet Count 334 # Mean Platelet Volume 9.2 Immature Granulocytes % 0.500 H Neutrophils % 66.2 Lymphocytes % 16.6 Monocytes % 14.0 H Eosinophils % 2.2 Basophils % 0.5 Nucleated Red Blood Cells % 0.0 Immature Granulocytes # 0.030 Neutrophils # 4.2 Lymphocytes # 1.0 Monocytes # 0.9 Eosinophils # 0.1 Basophils # 0.0 Nucleated Red Blood Cells # 0.0 Sodium Level 142 Potassium Level 4.1 Chloride Level 105 Carbon Dioxide Level 28 Anion Gap 9 Blood Urea Nitrogen 6 L Creatinine 0.71 Est Glomerular Filtrat Rate mL/min > 60 Glucose Level 94 Calcium Level 9.1 Phosphorus Level 4.2 Magnesium Level 1.9 Total Bilirubin 0.3 Direct Bilirubin 0.00 Indirect Bilirubin 0.3 Aspartate Amino Transf (AST/SGOT) 14 L Alanine Aminotransferase (ALT/SGPT) 8 L Alkaline Phosphatase 114 Total Protein 6.4 Albumin 3.2 L Globulin 3.20 Albumin/Globulin Ratio 1.00 Triglycerides Level 135 Cholesterol Level 97 L LDL Cholesterol, Calculated 48 HDL Cholesterol 22 L Cholesterol/HDL Ratio 4.4 Medications Medication Current Medications Sodium Chloride 1,000 ml @ 80 mls/hr [id number] IV Last administered on 01/26/19at 06:53; Admin Dose 80 MLS/HR; Start 01/25/19 at 10:46 IV Flush (NS 3 ml) 3 ml PER PROTOCOL IV ; Start 01/25/19 at 11:00 Acetaminophen (Tylenol Tab) 650 mg Q6H PRN PO .PAIN 1-3 OR TEMP; Start 01/25/19 at 11:00 Acetaminophen/ Hydrocodone Bitart ([place] (5/325)) 1 tab Q6H PRN PO .MOD PAIN 4- 6; Start 01/25/19 at 11:00 Famotidine (Pepcid) 20 mg Q12 PO Last administered on 01/25/19at 20:29; Admin Dose 20 MG; Start 01/25/19 at 21:00 Amitriptyline HCl (Elavil) 25 mg QHS PO Last administered on 01/25/19at 20:29; Admin Dose 25 MG; Start 01/25/19 at 21:00 Capecitabine (Xeloda) 1,500 mg BID PO ; Start 01/25/19 at 21:00; Status Hold Docusate Sodium (Colace) 100 mg BID PO Last administered on 01/25/19at 20:29; Admin Dose 100 MG; Start 01/25/19 at 21:00 Lorazepam (Ativan) 1 mg HS PRN PO ANXIETY; Start 01/25/19 at 11:00 Senna (Senokot) 1 tab BID PO Last administered on 01/25/19at 20:29; Admin Dose 1 TAB; Start 01/25/19 at 21:00 Hydromorphone HCl (Dilaudid) 2 mg Q2H PRN IV SEVERE PAIN LEVEL 7-10 Last administered on 01/26/19at 09:00; Admin Dose 2 MG; Start 01/25/19 at 12:00 Ondansetron HCl (Zofran Inj) 4 mg Q4H PRN IV NAUSEA/VOMITING Last administered on 01/26/19at 09:00; Admin Dose 4 MG; Start 01/25/19 at 16:30 Nicotine (Nicoderm 21 Mg/ 24hr) 1 patch DAILY TRANSDERM ; Start 01/26/19 at 09:00 MIMI ZENDEJAS M.D. Jan 26, 2019 09:10
--- NOTE | 2019-01-26 12:06 | PDOCDIS ---
Discharge Instructions CONDITION [id number] Patient Condition: [id number] Stable HOME CARE INSTRUCTIONS: [id number] Diet Instructions: [id number] Regular FOLLOW UP/APPOINTMENTS Follow-up Plan Follow-up with oncologist in her clinic. You have been given instructions by Dr. Mccoy to control nausea. Follow-up with outpatient pain management clinic for chronic pain GEMMA JENKINS NP Jan 26, 2019 12:05
[2019-01-26] MEDS ORDERED: FAMO-96 PO (12:11)
[2019-01-26] MEDS ORDERED: PROC10TA10 PO (12:11)
[2019-01-26] MEDS ORDERED: PANT40TA3 PO (12:11)
[2019-01-26] MEDS ORDERED: ONDA8TAB9 PO (12:11)
--- NOTE | 2019-01-26 12:18 | DS ---
Date/Time of Note Date/Time of Note DATE: 01/26/19 TIME: 12:17 Discharge Summary Admission/Discharge Info Admit Date/Time Jan 25, 2019 at 08:31 Discharge Date/Time Discharge Diagnosis 1. Acute on chronic refractory nausea, multifactorial with chemotherapy and po ssible cannabis Cyclic vomiting syndrome. Improved 2. Acute on chronic pain syndrome with opioid disorders 3. History of rectal cancer -Status post surgical resection, completion of radiation/6-week chemo, now on Xeloda abdomen day cycle weight patient is finishing up this month. 4. Chronic anemia 5. Mild thrombocytosis, likely dehydration 6.Tobacco/Cannabinoid use Patient Condition: Stable Consults ,oncologist Hx of Present Illness This a 43-year-old male with history of rectal cancer, status post surgical resection with completion of radiation and 6-week chemo course, now on Xeloda adjunctive cycle which he is finishing up this month, chronic pain syndrome with opioid dependency, cannabis dependency, cyclic vomiting syndrome, admitted with intractable nausea/vomiting/abdominal pain started 4 days ago. Apparently, patient was admitted yesterday at [facility] for same reason and he went AGAINST MEDICAL ADVICE as patient was not happy with his pain regimen on [employer]. He denied chest pain, palpitation, shortness of breath, numbness, tingling, diarrhea, fever, chills, constipation or others. Patient has been having cyclic vomiting syndrome which happens every month. He also takes Dilaudid 4 mg p.o. every 4 hours at home for severe pain and Percocet for moderate pain. Patient never had any follow-up I did pain management clinic. Labs stable except for hemoglobin 11.0, hematocrit 34.6, platelet 447. Patient received a dose of Zofran in the emergency room for nausea. He also got a dose of Dilaudid 2 mg IV in the emergency room and he is already asking for pain medication. He has not had any emesis. Hospital Course :43-year-old male with history of rectal cancer, status post surgical resection with completion of radiation and 6-week chemo course, now on Xeloda adjunctive cycle which he is finishing up this month, chronic pain syndrome with opioid dependency, cannabis dependency, cyclic vomiting syndrome, admitted with intractable nausea and severe abdominal pain started 4 days ago. Home medications continued. Patient was followed by oncologist. Most likely, patient had acute on chronic refractory nausea likely multifactorial with chemo and possible cannabis cyclic vomiting syndrome. He was put on nausea regimen by his oncologist with Zofran 16 mg twice daily with Compazine for breakthrough nausea. Patient symptoms improved with 2 doses of Zofran. He was continued on IV Dilaudid for pain control. Patient was then started on a diet which he was able to tolerate. He was given IV fluids. Labs and vital signs stable. Kamlesh matute is feeling back to baseline and is eager to be discharged. He was recommended to follow instructions provided by oncologist regarding nausea control. Patient's medication also change to Pepcid at night and Protonix in the morning due to refractory GERD symptoms. Approximately 60 minutes was spent on coordinating the discharge on this patient. Patient was seen in collaboration with Dr. Dick. Home Meds Active Scripts Famotidine* (Pepcid*) 20 Mg Tablet, 20 MG PO HS, #30 TAB Prov:GEMMA JENKINS V[employer] INSUR[employer]ENT 01/26/19 Pantoprazole* (Protonix*) 40 Mg Tablet.dr, 40 MG PO AC BREAKFAST, #30 TAB Prov:GEMMA JENKINS [employer] INS[employer]ENT 01/26/19 Hydromorphone Hcl* (Dilaudid*) 2 Mg Tablet, 1 MG PO Q6H PRN for PAIN LEVEL 6-10, #10 TAB Prov:LORELEI NARVAEZ MD 12/30/18 Reported Medications Hydromorphone Hcl (Dilaudid) 4 Mg Tab, 1 TAB ORAL Q2H PRN for SEVERE PAIN LEVEL 7-10 01/25/19 Hydrocodone/Acetaminophen (Hydrocodone-Acetamin 10-325 mg) 1 Each Tablet, 1 TAB ORAL Q4 PRN for PAIN LEVEL 6-10 01/25/19 Sennosides (SENNA CONCENTRATE) 8.6 Mg Tablet, 8.6 MG PO BID for 30 Days, #60 TAKE ONE TABLET BY MOUTH TWO TIMES A DAY 12/28/18 Docusate Sodium (Col-Rite) 100 Mg Capsule, 100 MG PO BID for 30 Days, #60 12/28/18 Lorazepam* (Lorazepam*) 1 Mg Tablet, 1 MG PO HS PRN for ANXIETY, #30 TAB 12/04/18 Capecitabine* (Xeloda*) 500 Mg Tablet, 1500 MG PO BID, TAB 12/04/18 Amitriptyline Hcl* (Amitriptyline Hcl*) 25 Mg Tablet, 25 MG PO QHS for 30 Days, #30 TAB 12/04/18 Discontinued Reported Medications Prochlorperazine* (Prochlorperazine*) 10 Mg Tablet, 10 MG PO DAILY for 25 Days, #100 12/28/18 Pantoprazole* (Pantoprazole*) 40 Mg Tablet.dr, 40 MG PO DAILY for 30 Days, #60 12/28/18 Discontinued Scripts Morphine Sulfate (Morphine Sulfate ER) 15 Mg Tablet.er, 15 MG PO BID for 10 Days, TAB Prov:LORELEI NARVAEZ MD 12/30/18 Follow-up Plan Follow-up with oncologist in her clinic. You have been given instructio ns by Dr. Mccoy to control nausea. Follow-up with outpatient pain management clinic for chronic pain Primary Care Provider Jennifer Downs Pending Labs Laboratory Tests Test 01/26/19 04:52 White Blood Count 6.3 10^3/ul (4.8-10.8) Red Blood Count 3.50 10^6/ul (4.70-6.10) Hemoglobin 10.3 g/dl (14.0-18.0) Hematocrit 32.9 % (42.0-52.0) Mean Corpuscular Volume 94.0 fl (82.0-101.0) Mean Corpuscular Hemoglobin 29.4 pg (29.0-33.0) Mean Corpuscular Hemoglobin Concent 31.3 g/dl (32.0-37.0) Red Cell Distribution Width 20.9 % (11.5-14.5) Platelet Count 334 10^3/UL (140-415) Mean Platelet Volume 9.2 fl (7.4-10.4) Immature Granulocytes % 0.500 % (0.001-0.429) Neutrophils % 66.2 % (39.0-77.0) Lymphocytes % 16.6 % (15.0-51.0) Monocytes % 14.0 % (0.0-11.0) Eosinophils % 2.2 % (0.0-7.0) Basophils % 0.5 % (0.0-2.0) Nucleated Red Blood Cells % 0.0 /100WBC (0.0-0.0) Immature Granulocytes # 0.030 10^3/ul (0.0-0.031) Neutrophils # 4.2 10^3/ul (1.6-7.5) Lymphocytes # 1.0 10^3/ul (0.8-2.9) Monocytes # 0.9 10^3/ul (0.3-0.9) Eosinophils # 0.1 10^3/ul (0.0-0.5) Basophils # 0.0 10^3/ul (0.0-0.1) Nucleated Red Blood Cells # 0.0 10^3/ul (0.0-0.0) Sodium Level 142 mmol/L (135-144) Potassium Level 4.1 mmol/L (3.5-5.1) Chloride Level 105 mmol/L (97-110) Carbon Dioxide Level 28 mmol/L (21-31) Anion Gap 9 (5-13) Blood Urea Nitrogen 6 mg/dl (7-20) Creatinine 0.71 mg/dl (0.61-1.24) Est Glomerular Filtrat Rate mL/min > 60 mL/min (>60) Glucose Level 94 mg/dl (70-220) Hemoglobin A1c 4.8 % (0-5.9) Calcium Level 9.1 mg/dl (8.4-10.2) Phosphorus Level 4.2 mg/dl (2.5-4.9) Magnesium Level 1.9 mg/dl (1.7-2.5) Total Bilirubin 0.3 mg/dl (0.2-1.3) Direct Bilirubin 0.00 mg/dl (0.00-0.20) Indirect Bilirubin 0.3 mg/dl (0-1.1) Aspartate Amino Transf (AST/SGOT) 14 IU/L (15-46) Alanine Aminotransferase (ALT/SGPT) 8 IU/L (13-69) Alkaline Phosphatase 114 IU/L (42-121) Total Protein 6.4 g/dl (6.1-8.1) Albumin 3.2 g/dl (3.3-4.9) Globulin 3.20 g/dl (1.3-3.2) Albumin/Globulin Ratio 1.00 Triglycerides Level 135 mg/dl (0-149) Cholesterol Level 97 mg/dl (100-200) LDL Cholesterol, Calculated 48 mg/dl HDL Cholesterol 22 mg/dl (27-67) Cholesterol/HDL Ratio 4.4 RATIO JENKINS,GEMMA V[employer] INS[employer]ENT Jan 26, 2019 12:18
== END 2019-01-26 14:19 | disposition home or self-care (01) | DRG 918 ==
LOC: E/R 07:37 → MS1 08:31
PROVIDERS: ADMIT Internal Medicine; ATTEND Internal Medicine
DX: T40.7X1A Poisoning by cannabis (derivatives), accidental (unintentional), initial encounter (principal); C20 Malignant neoplasm of rectum; F11.20 Opioid dependence, uncomplicated; G43.A0 Cyclical vomiting, in migraine, not intractable; G89.29 Other chronic pain; Z90.49 Acquired absence of other specified parts of digestive tract; D64.9 Anemia, unspecified; D47.3 Essential (hemorrhagic) thrombocythemia; E86.0 Dehydration; Z72.0 Tobacco use; Z92.3 Personal history of irradiation; F12.20 Cannabis dependence, uncomplicated; T45.1X5A Adverse effect of antineoplastic and immunosuppressive drugs, initial encounter
CPT/HCPCS: 36415; 80048; 80053; 80061; 83036; 83735; 84100; 85025; 96374; 96375; J1170; J2060; J2405; J7030

== ENCOUNTER 2019-02-08 16:04 | Emergency (ER) | payer OTHER ==
[~2019-02-08] VITALS: Ht 177.8 cm; Wt 66.8 kg
[~2019-02-08 16:04] MED LIST changes: +FAMO-96 PO; +HYDR-3609 ORAL; -HYDR2TAB36 PO; +HYDR4TAB ORAL; -MORP15TA3 PO; +ONDA8TAB9 PO; +PANT40TA3 PO; -PANT40TA4 PO
[2019-02-08 16:37] VITALS: Ht 177.8 cm; Wt 66.8 kg
[2019-02-08] MEDS ORDERED: ONDANSETRON 4 MG INJ IV STA ×3 (19:22→22:01)
[2019-02-08] MEDS ORDERED: SOD CHLORIDE 0.9% 1,000 ML IV STA (19:22)
[2019-02-08] MEDS ORDERED: NALBUPHINE HCL (10 MG/1 ML) INJ IV ONE (19:30)
[2019-02-08] MEDS ORDERED: NALBUPHINE HCL (10 MG/1 ML) INJ IV PRN (20:00)
[2019-02-08] MEDS ORDERED: HYDROmorphONE 1 MG/ML SYG IV STA (20:26)
[2019-02-08] MEDS ORDERED: METOCLOPRAMIDE 10 MG INJ IV ONE (20:30)
[2019-02-08] MEDS ORDERED: ONDA8TAB14 PO (21:04)
--- NOTE | 2019-02-08 21:08 | ERD ---
ER Documentation Chief Complaint Chief Complaint generalize body pain, vomitting, bright red rectal bleeding since yesterday HPI This is a 43-year-old male who is known to the ER with frequent visits. The patient has a history of colon cancer and he is disease free at this time however he tells me that he is continuing to get chemotherapy despite being disease free because they want to "make sure". He said he had chemo yesterday and this is his last week of getting it. He says he has diffuse lower abdominal pain with nausea and vomiting consistent with post chemo reaction. He says he has Dilaudid at home. The patient wants and keeps asking for 2 mg of Dilaudid ROS All systems reviewed and are negative except as per history of present illness. Medications Home Meds Active Scripts Ondansetron (Ondansetron Odt) 8 Mg Tab.rapdis, 8 MG PO Q6H PRN for NAUSEA AND/OR VOMITING, #10 TAB Prov:OZZY GUAMAN DO 02/08/19 Famotidine* (Pepcid*) 20 Mg Tablet, 20 MG PO HS, #30 TAB Prov:GEMMA JENKINS NP 01/26/19 Pantoprazole* (Protonix*) 40 Mg Tablet., 40 MG PO AC BREAKFAST, #30 TAB Prov:GEMMA JENKINS NP 01/26/19 Prochlorperazine* (Prochlorperazine*) 10 Mg Tablet, 10 MG PO Q6H PRN for NAUSEA, #30 TAB This dosage as instructed by for breakthrough nausea. Prov:GEMMA JENKINS NP 01/26/19 Ondansetron Hcl* (Zofran*) 8 Mg Tablet, 16 MG PO BID, #30 TAB This dosage instructed by Prov:GEMMA JENKINS NP 01/26/19 Reported Medications Hydromorphone Hcl (Dilaudid) 4 Mg Tab, 1 TAB ORAL Q2H PRN for SEVERE PAIN LEVEL 7-10 01/25/19 Hydrocodone/Acetaminophen (Hydrocodone-Acetamin 10-325 mg) 1 Each Tablet, 1 TAB ORAL Q4 PRN for PAIN LEVEL 6-10 01/25/19 Sennosides (SENNA CONCENTRATE) 8.6 Mg Tablet, 8.6 MG PO BID for 30 Days, #60 TAKE ONE TABLET BY MOUTH TWO TIMES A DAY 12/28/18 Docusate Sodium (Col-Rite) 100 Mg Capsule, 100 MG PO BID for 30 Days, #60 12/28/18 Lorazepam* (Lorazepam*) 1 Mg Tablet, 1 MG PO HS PRN for ANXIETY, #30 TAB 12/04/18 Capecitabine* (Xeloda*) 500 Mg Tablet, 1500 MG PO BID, TAB 12/04/18 Amitriptyline Hcl* (Amitriptyline Hcl*) 25 Mg Tablet, 25 MG PO QHS for 30 Days, #30 TAB 12/04/18 Allergies Allergies: Coded Allergies: No Known Allergy (Unverified , 12/28/18) PMhx/Soc History of Surgery: Yes (COLON REECTION WITH ILEOSTOMY) Anesthesia Reaction: No Hx 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 Disorder: No Hx Respiratory Disorders: No Hx Cardiac Disorders: No Hx Psychiatric Problems: No Hx Miscellaneous Medical Probl: No Hx Alcohol Use: No Hx Substance Use: Yes Hx Tobacco Use: Yes Smoking Status: Never smoker FmHx Family History: No coronary disease Physical Exam Vitals Vital Signs Date Temp Pulse Resp B/P (MAP) Pulse Ox O2 O2 Flow FiO2 Time Delivery Rate 02/08/19 98.7 65 24 185/93 98 18:20 (123) 02/08/19 98.5 75 18 129/77 100 16:37 (94) Physical Exam Const: Well-developed, well-nourished Head: Atraumatic, normocephalic Eyes: Normal Conjunctiva, PERRLA, EOMI, normal sclera, no nystagmus ENT: Normal External Ears, Nose and Mouth, moist mucus membranes. Neck: Full range of motion. No meningismus, no lymphadenopathy. Resp: Clear to auscultation bilaterally, no wheezing, rhonchi, rales Cardio: Regular rate and rhythm, no murmurs, S1 S2 present Abd: Soft, diffuse lower abdominal tenderness, non distended. Normal bowel sounds, no guarding or rebound, no pulsitile abdominal masses or bruits Skin: No petechiae or rashes, no ecchymosis , no maculopapular rash Back: No midline or flank tenderness Ext: No cyanosis, or edema, FROM x 4, normal inspection, neurovascularly intact x 4 Neur: Awake and alert, STR 5/5 x 4, sensation intact x 4, no focal findings, cerebellum intact Psych: Normal Mood and Affect Result Diagram: 02/08/19191402/08/191914 Results 24 hrs Laboratory Tests Test 02/08/19 19:15 White Blood Count 9.8 10^3/ul Red Blood Count 3.83 10^6/ul Hemoglobin 11.6 g/dl Hematocrit 35.5 % Mean Corpuscular Volume 92.7 fl Mean Corpuscular Hemoglobin 30.3 pg Mean Corpuscular Hemoglobin Concent 32.7 g/dl Red Cell Distribution Width 20.0 % Platelet Count 359 10^3/UL Mean Platelet Volume 9.6 fl Immature Granulocytes % 0.600 % Neutrophils % 79.3 % Lymphocytes % 9.2 % Monocytes % 10.3 % Eosinophils % 0.4 % Basophils % 0.2 % Nucleated Red Blood Cells % 0.0 /100WBC Immature Granulocytes # 0.060 10^3/ul Neutrophils # 7.8 10^3/ul Lymphocytes # 0.9 10^3/ul Monocytes # 1.0 10^3/ul Eosinophils # 0.0 10^3/ul Basophils # 0.0 10^3/ul Nucleated Red Blood Cells # 0.0 10^3/ul Sodium Level 139 mmol/L Potassium Level 3.8 mmol/L Chloride Level 105 mmol/L Carbon Dioxide Level 22 mmol/L Anion Gap 12 Blood Urea Nitrogen 10 mg/dl Creatinine 0.57 mg/dl Est Glomerular Filtrat Rate mL/min > 60 mL/min Glucose Level 114 mg/dl Calcium Level 10.0 mg/dl Total Bilirubin 0.6 mg/dl Direct Bilirubin 0.00 mg/dl Indirect Bilirubin 0.6 mg/dl Aspartate Amino Transf (AST/SGOT) 17 IU/L Alanine Aminotransferase (ALT/SGPT) 18 IU/L Alkaline Phosphatase 153 IU/L Total Protein 8.0 g/dl Albumin 4.2 g/dl Globulin 3.80 g/dl Albumin/Globulin Ratio 1.10 Lipase 15 U/L Current Medications Medications Dose Sig/Devan Start Time Status Last (Trade) Ordered Route PRN Stop Time Admin Dose Reason Admin Sodium 1,000 ml @ Q1H STAT 02/08/19 DC 02/08/19 Chloride 1,000 mls/hr IV 19:22 19:29 02/08/19 20:21 Ondansetron 4 mg ONCE STAT 02/08/19 DC 02/08/19 HCl (Zofran IV 19:22 19:29 Inj) 02/08/19 19:23 Nalbuphine 10 mg ONCE ONCE 02/08/19 DC 02/08/19 HCl IV 19:30 19:40 (Nubain) 02/08/19 19:31 Nalbuphine 10 mg Q4H PRN 02/08/19 HCl IV PRURITUS 20:00 (Nubain) 10 mg ONCE ONCE 02/08/19 DC 02/08/19 Metoclopramid IV 20:30 20:30 e HCl 02/08/19 20:31 (Reglan) 2 mg ONCE STAT 02/08/19 DC 02/08/19 Hydromorphone IV 20:26 20:31 HCl 02/08/19 20:27 (Dilaudid) Procedures/MDM Patient received 10 mg of Nubain, will observe his symptoms. Patient seemed to be calm down a bit but he is requesting more pain meds. Is going to get 1 dose and be discharged home Departure Diagnosis: Primary Impression: Abdominal pain Abdominal location: lower abdomen, unspecified Qualified Codes: R10.30 - Lower abdominal pain, unspecified Condition: Stable Patient Instructions: Abdominal Pain Referrals: JEF LIU (PCP) OZZY GUAMAN DO Feb 08, 2019 21:08
[2019-02-08 22:11] VITALS: BP 134/86; PULSE 64; RESP 16
[2019-02-09] MEDS ORDERED: ONDA8TAB83 ORAL (07:37)
[2019-02-09] MEDS ORDERED: METO10TA3 ORAL (07:37)
[2019-02-09] MEDS ORDERED: HYDR2TAB36 PO (07:40)
== END 2019-02-08 22:12 | disposition home or self-care (01) ==
LOC: E/R 16:04
DX: R10.30 Lower abdominal pain, unspecified (principal); C18.9 Malignant neoplasm of colon, unspecified
CPT/HCPCS: 36415; 80053; 83690; 85025; 96374; 96375; J1170; J2300; J2405; J2765; J7030; Z7502

== ENCOUNTER 2019-02-09 03:07 | Emergency (ER) | payer OTHER ==
[~2019-02-09] VITALS: Ht 175.3 cm; Wt 65.9 kg
[~2019-02-09 03:07] MED LIST changes: +ONDA8TAB14 PO
[2019-02-09 03:12] VITALS: Ht 175.3 cm; Wt 65.9 kg
[2019-02-09] MEDS ORDERED: HYDROmorphONE 2 MG/ML SYG IV STA (07:03)
--- NOTE | 2019-02-09 07:25 | ERD ---
ER Documentation Chief Complaint Chief Complaint [id number]; N/V; WAS D/C'D FROM ED EARLIER TODAY FOR SAME PROBLEM HPI This is a 43-year-old male with a past medical history of rectal cancer status post resection and chemoradiation, currently on adjuvant chemotherapy who is presenting with exacerbation of his chronic abdominal pain and cyclic vomiting. The patient has frequent emergency department visits and admissions to the hospital for similar symptoms. The patient was admitted to the hospital earlier in the month and was ultimately discharged on a regimen of oral Dilaudid, Percocet, MS Contin, Zofran and Compazine for breakthrough nausea. The patient reports exacerbated symptoms beginning 1-2 days ago. The patient was here in the emergency department yesterday, but his symptoms were controlled, his workup was unremarkable, and he was ultimately discharged. The patient did report feeling better transiently, but his symptoms ultimately recurred this morning, which is what prompted him to come to the ER. The patient reports not using marijuana over the last 3 weeks, but the patient does have a history of chronic marijuana abuse as well. The patient does have some issues with constipation. He denies any diarrhea. He denies any dysuria or hematuria or urgency or frequency. The patient denies feeling sick recently. The patient denies fever or chills. The patient has had no headache or vision changes. The patient does not endorse neck or back pain. The patient denies lightheadedness or dizziness. The patient has had no chest pain or trouble breathing. The patient has had no focal deficits. The patient has had no weakness or numbness or tingling to the face or extremities. ROS All systems reviewed and are negative except as per history of present illness. Medications Home Meds Active Scripts Pantoprazole* (Protonix*) 40 Mg Tablet., 40 MG PO AC BREAKFAST, #30 TAB Prov:GEMMA JENKINS V. [employer] 01/26/19 Prochlorperazine* (Prochlorperazine*) 10 Mg Tablet, 10 MG PO Q6H PRN for NAUSEA, #30 TAB This dosage as instructed by for breakthrough nausea. Prov:GEMMA JENKINS [employer]. [employer] 01/26/19 Reported Medications Hydromorphone Hcl* (Dilaudid*) 2 Mg Tablet, 4 MG PO Q6H PRN for PAIN LEVEL 7-10, TAB 02/09/19 Ondansetron Hcl* (Ondansetron Hcl*) 8 Mg Tablet, 1 TAB ORAL Q6 PRN for NAUSEA AND/OR VOMITING 02/09/19 Metoclopramide Hcl* (Metoclopramide Hcl*) 10 Mg Tablet, 1 TAB ORAL tidac PRN for NAUSEA AND/OR VOMITING 02/09/19 Hydrocodone/Acetaminophen (Hydrocodone-Acetamin 10-325 mg) 1 Each Tablet, 1 TAB ORAL Q4 PRN for PAIN LEVEL 6-10 01/25/19 Capecitabine* (Xeloda*) 500 Mg Tablet, 1500 MG PO BID, TAB 12/04/18 Discontinued Reported Medications Hydromorphone Hcl (Dilaudid) 4 Mg Tab, 1 TAB ORAL Q2H PRN for SEVERE PAIN LEVEL 7-10 01/25/19 Sennosides (SENNA CONCENTRATE) 8.6 Mg Tablet, 8.6 MG PO BID for 30 Days, #60 TAKE ONE TABLET BY MOUTH TWO TIMES A DAY 12/28/18 Docusate Sodium (Col-Rite) 100 Mg Capsule, 100 MG PO BID for 30 Days, #60 12/28/18 Lorazepam* (Lorazepam*) 1 Mg Tablet, 1 MG PO HS PRN for ANXIETY, #30 TAB 12/04/18 Amitriptyline Hcl* (Amitriptyline Hcl*) 25 Mg Tablet, 25 MG PO QHS for 30 Days, #30 TAB 12/04/18 Discontinued Scripts Ondansetron (Ondansetron Odt) 8 Mg Tab.rapdis, 8 MG PO Q6H PRN for NAUSEA AND/OR VOMITING, #10 TAB Prov:OZZY GUAMAN DO 02/08/19 Famotidine* (Pepcid*) 20 Mg Tablet, 20 MG PO HS, #30 TAB Prov:GEMMA JENKINS NP 01/26/19 Ondansetron Hcl* (Zofran*) 8 Mg Tablet, 16 MG PO BID, #30 TAB This dosage instructed by Prov:GEMMA JENKINS NP 01/26/19 Allergies Allergies: Coded Allergies: No Known Allergy (Unverified , 02/09/19) PMhx/Soc History of Surgery: Yes (COLON REECTION WITH ILEOSTOMY) Anesthesia Reaction: No Hx 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 Disorder: No Hx Respiratory Disorders: No Hx Cardiac Disorders: No Hx Psychiatric Problems: No Hx Miscellaneous Medical Probl: Yes (colon ca ) Hx Alcohol Use: No Hx Substance Use: Yes Hx Tobacco Use: Yes Smoking Status: Current every day smoker FmHx Family History: No diabetes Physical Exam Vitals Vital Signs Date Temp Pulse Resp B/P (MAP) Pulse Ox O2 O2 Flow FiO2 Time Delivery Rate 02/09/19 56 18 118/84 98 Room Air 08:55 (95) 02/09/19 52 18 173/90 98 Room Air 06:57 (117) 02/09/19 98.8 80 19 140/70 99 03:12 (93) Physical Exam Const: No apparent distress, well-developed Head: Normocephalic, Atraumatic Eyes: Normal Conjunctiva. Extraocular movements grossly intact. ENT: Normal External Ears, Nose and Mouth. Moist mucous membranes. Neck: Full range of motion. No meningismus. Resp: Clear to auscultation bilaterally, No wheezes, rales or rhonchi Cardio: Regular rate and rhythm. No murmurs, rubs or gallops Abd: Cachectic. Soft, non distended. General discomfort with no exquisite tenderness. No rebound or guarding. Normal bowel sounds Skin: No petechiae or rashes Back: No midline tenderness. No CVA tenderness Ext: No cyanosis, or edema Neur: Awake and alert, oriented 4. Cranial nerves intact. No facial droop. Normal strength, sensation and coordination. Psych: Anxious, depressed affect Results 24 hrs Current Medications Medications Dose Sig/Devan Start Time Status Last (Trade) Ordered Route PRN Stop Time Admin Dose Reason Admin Sodium 1,000 ml @ Q1H ONCE 02/09/19 DC 02/09/19 Chloride 1,000 mls/hr IV 07:30 07:14 02/09/19 08:29 10 mg ONCE ONCE 02/09/19 DC 02/09/19 Metoclopramid IV 07:30 07:15 e HCl 02/09/19 07:31 (Reglan) 25 mg ONCE ONCE 02/09/19 DC 02/09/19 Diphenhydrami IV 07:30 07:15 ne HCl 02/09/19 07:31 (Benadryl) 2 mg ONCE STAT 02/09/19 DC 02/09/19 Hydromorphone IV 07:03 07:15 HCl 02/09/19 07:04 (Dilaudid) Ondansetron 8 mg ONCE STAT 02/09/19 DC 02/09/19 HCl (Zofran IV 08:43 08:59 Inj) 02/09/19 08:44 1 mg ONCE STAT 02/09/19 DC 02/09/19 Hydromorphone IV 08:53 08:59 HCl 02/09/19 08:54 (Dilaudid) Procedures/MDM MDM The patient's presentation warrants further investigation. Previous medical records, if available, were reviewed. LABS The patient's laboratory testing was reviewed from yesterday. No emergent treatment was required unless described below. CBC: No E/o systemic infection or severe anemia or thrombocytopenia. Mild normocytic anemia, nonemergent, chronic. Chemistry: No E/o severe acidosis or alkalosis or renal failure or liver disease or diabetic ketoacidosis Lipase: No E/o pancreatitis TREATMENT/DISPOSITION The patient presents with chronic exacerbated abdominal pain. The patient is currently cancer free. He is on multiple opiate/opioid medications as well as multiple anti-emetics at home. Unfortunately, the patient reports continued nausea and vomiting despite taking the antiemetics, so he has not been able to tolerate his opiate medications at home. I spoke with the patient's oncologist, Dr. Werner. There are concerns of opiate dependence and addiction. There are also concerns of cyclic vomiting syndrome from chronic marijuana abuse. The patient has been on an adjuvant chemotherapy regimen, which she was told to stop yesterday. This may help the patient's nausea and vomiting. The patient's blood work from yesterday is unremarkable. His symptoms are unchanged. I do not feel that repeat laboratory testing today is warranted. Despite the patient's reported abdominal pain, the patient does not have any obvious tenderness on exam. The patient does not have any evidence of peritonitis. The patient does not have clinical symptoms concerning for mesenteric ischemia or ischemic colitis. The patient does not have right upper quadrant tenderness, and I have low suspicion for gallstones, cholecystitis or biliary colic. The patient does not have any epigastric pain. I have low suspicion for gastritis, PUD or GERD. The patient does not have left upper quadrant tenderness. I have low suspicion for pancreatitis. The patient does not have any right lower quadrant tenderness, or periumbilical tenderness. I have low suspicion for appendicitis. The patient does not have suprapubic tenderness. I have decreased suspicion for cystitis. The patient does not have any left lower quadrant tenderness, and I have low suspicion for diverticulosis or diverticulitis. The patient does not have any flank tenderness. The patient does not have gross hematuria. I have decreased suspicion for nephrolithiasis or renal colic. The patient does not have any palpable pulsatile mass or severe abdominal pain radiating to the back. I have low suspicion for aortic aneurysm, dissection or rupture. The patient was treated with IV fluids, Dilaudid, Reglan, Benadryl and Zofran in the emergency department with improvement. I do feel that the patient requires further outpatient evaluation, but I do not feel that the patient would benefit from inpatient management. DISCHARGE Upon reevaluation of the patient, symptoms have improved. No emergent diagnoses were identified. At this time, I feel that the patient stable for discharge. The patient was instructed to follow-up with a primary care physician in 1-3 days. The patient will be given strict precautions with which to return to the emergency department. Prescriptions: None The patient's blood pressure was elevated at greater than 120/80 while in the emergency department. The patient was otherwise stable with no evidence of hypertensive urgency or emergency. The patient does not require admission for blood pressure control. I have discussed with the patient the risks of hypertension. I have instructed the patient to return to the ER for any new or worsening symptoms including chest pain, shortness of breath, headache, blurred vision, confusion, nausea, vomiting or LOC. I have advised the patient to follow up with the primary care physician for outpatient monitoring and treatment for h ypertension in 1-3 days. Disclaimer: Inadvertent spelling and grammatical errors are likely due to EHR/dictation software use and do not reflect on the overall quality of patient care. Note that the electronic time recorded on this note does not necessarily reflect the actual time of the patient encounter. Departure Diagnosis: Primary Impression: Chronic generalized abdominal pain Additional Impressions: Nausea and vomiting Vomiting type: unspecified Vomiting Intractability: non-intractable Qualified Codes: R11.2 - Nausea with vomiting, unspecified History of rectal cancer Opiate dependence Substance use status: with unspecified opioid-induced disorder Qualified Codes: F11.29 - Opioid dependence with unspecified opioid-induced disorder History of cannabis abuse Condition: Stable Patient Instructions: Abdominal Pain, Nausea and Vomiting-Adult Additional Instructions: Thank you for for coming to [facility] for your care today. Please ask your nurse or provider if you have questions about your care today and do not leave until all your questions have been answered. Please use any medications given as directed and follow-up with your doctor (or the doctor you were referred to) in the next 1-3 days. If you do not have a primary care doctor you [place] [facility] [place] [facility] (listed below). You may also use motrin and tylenol as needed for fever and/or pain unless instructed otherwise by your provider or nurse. Indications for more urgent follow-up have been discussed, but you may return to the Emergency Department at ANY time for any worrisome or worsening symptoms. If you have abdominal pain, please know that no test or exam you received is perfect and you should follow up within 8 hours for continued pain. If you had any imaging studies today, such as an X-Ray or CT Scan, these studies will be reviewed later by a radiologist. You will be called if there are important findings that were not identified today, so make sure the contact information you provided at registration is correct. If you received any narcotic pain control medicine today, such as Vicodin, Morphine or Dilaudid, your coordination and judgment may be affected for a number of hours. Please do not drive or operate heavy machinery, and you may want someone to assist you at home. If you were given a prescription for narcotic medication, be aware that it is very addictive- use sparingly and only if necessary. PLEASE SEEK FURTHER EVALUATION AND MANAGEMENT AT YOUR DOCTORS OFFICE WITHIN THE NEXT 1-3 DAYS. IT IS YOUR RESPONSIBILITY TO MAKE AN APPOINTMENT FOR FOLOW-UP CARE. IF YOU HAVE A PRIMARY DOCTOR, PLEASE CALL THEIR OFFICE TO SCHEDULE AN APPOINTMENT FOR FOLLOW UP. IF YOU DO NOT HAVE A PRIMARY DOCTOR YOU CAN CALL OUR PHYSICIAN REFERRAL HOTLINE AT IF YOU CAN NOT AFFORD TO SEE A PHYSICIAN YOU CAN CHOSE FROM THE FOLLOWING [facility] CLINICS: [facility] [address] [facility] [address] [facility]. [facility] [address] [facility] [address] [facility] [address] [facility]. [facility]. [address] TANIA SHANNON MD Feb 09, 2019 07:23
[2019-02-09] MEDS ORDERED: SOD CHLORIDE 0.9% 1,000 ML IV ONE (07:30)
[2019-02-09] MEDS ORDERED: METOCLOPRAMIDE 10 MG INJ IV ONE (07:30)
[2019-02-09] MEDS ORDERED: DIPHENHYDRAMINE 50 MG INJ IV ONE (07:30)
[2019-02-09] MEDS ORDERED: METO10TA3 ORAL (07:37)
[2019-02-09] MEDS ORDERED: ONDA8TAB83 ORAL (07:37)
[2019-02-09] MEDS ORDERED: HYDR2TAB36 PO (07:40)
[2019-02-09] MEDS ORDERED: ONDANSETRON 4 MG INJ IV STA (08:43)
[2019-02-09] MEDS ORDERED: HYDROmorphONE 0.5 MG/0.5 ML SYG IV STA (08:53)
[2019-02-09 09:25] VITALS: BP 126/71; PULSE 58; RESP 18
== END 2019-02-09 09:27 | disposition home or self-care (01) ==
LOC: E/R 03:07
DX: R10.84 Generalized abdominal pain (principal); C20 Malignant neoplasm of rectum; F17.210 Nicotine dependence, cigarettes, uncomplicated; F11.29 Opioid dependence with unspecified opioid-induced disorder; F12.10 Cannabis abuse, uncomplicated
CPT/HCPCS: 96361; 96374; 96375; 96376; J1170; J1200; J2765; J7030; Z7502

== ENCOUNTER 2019-02-23 09:00 | Emergency (ER) | payer OTHER ==
[~2019-02-23] VITALS: Ht 175.3 cm; Wt 70.5 kg
[~2019-02-23 09:00] MED LIST changes: -AMIT25TA9 PO; -DOCU-210 PO; -FAMO-96 PO; +HYDR2TAB36 PO; -HYDR4TAB ORAL; -LORA1TAB PO; +METO10TA3 ORAL; -ONDA8TAB14 PO; +ONDA8TAB83 ORAL; -ONDA8TAB9 PO; -SENN8.6T78 PO
[2019-02-23 09:07] VITALS: Ht 175.3 cm; Wt 70.5 kg
[2019-02-23] MEDS ORDERED: SOD CHLORIDE 0.9% 1,000 ML IV STA ×2 (09:10→11:31)
[2019-02-23] MEDS ORDERED: ONDANSETRON 4 MG INJ IV STA ×3 (09:10→13:54)
[2019-02-23] MEDS ORDERED: HYDROmorphONE 1 MG/ML SYG IV STA ×4 (09:10→13:54)
--- NOTE | 2019-02-23 10:32 | ERD ---
ER Documentation Chief Complaint Chief Complaint Abd pain with N/V x 2 weeks HPI This is a 43-year-old male with a known history of rectal carcinoma status post resection with a T3 lesion. The patient currently completed adjunctive chemotherapy 2 weeks ago which she stated was stopped earlier due to the patient's persistent nausea.. He had also been on a cycle of Xeloda monotherapy prior to the adjunctive chemotherapy. The patient was recently admitted to the hospital roughly 1 month ago on January 25, 2019. He was seen by the pediatric clinical dietician oncologist Dr. Mccoy at that time. The patient states he has had multiple similar episodes of severe nausea vomiting abdominal pain. The patient indicates that he had been discharged from the hospital with an oral regimen of Dilaudid [place] and Zofran and Compazine for breakthrough nausea. The patient however indicates that over the past 24 hours he has had severe worsening of his nausea with multiple episodes of nonbloody nonbilious emesis. He states he had roughly 20 episodes of the emesis. He states the abdominal pain is a cramping-like sensation. Indicates this is the similar pain that he is been experiencing since his rectal cancer resection. He denies a headache or neck pain. He denies any weight loss. He said no fevers or shaking or chills. He has no shortness of breath at rest or exertion. Indicates he has an appointment tomorrow with his surgeon for further discussion and management of his pain. The patient has had frequent emergency room visits for similar symptoms. ROS All systems reviewed and are negative except as per history of present illness. Medications Home Meds Active Scripts Pantoprazole* (Protonix*) 40 Mg Tablet., 40 MG PO AC BREAKFAST, #30 TAB Prov:GEMMA JENKINS NP 01/26/19 Prochlorperazine* (Prochlorperazine*) 10 Mg Tablet, 10 MG PO Q6H PRN for NAUSEA, #30 TAB This dosage as instructed by for breakthrough nausea. Prov:GEMMA JENKINS NP 01/26/19 Reported Medications Hydromorphone Hcl* (Dilaudid*) 2 Mg Tablet, 4 MG PO Q6H PRN for PAIN LEVEL 7-10, TAB 02/09/19 Ondansetron Hcl* (Ondansetron Hcl*) 8 Mg Tablet, 1 TAB ORAL Q6 PRN for NAUSEA AND/OR VOMITING 02/09/19 Metoclopramide Hcl* (Metoclopramide Hcl*) 10 Mg Tablet, 1 TAB ORAL tidac PRN for NAUSEA AND/OR VOMITING 02/09/19 Hydrocodone/Acetaminophen (Hydrocodone-Acetamin 10-325 mg) 1 Each Tablet, 1 TAB ORAL Q4 PRN for PAIN LEVEL 6-10 01/25/19 Capecitabine* (Xeloda*) 500 Mg Tablet, 1500 MG PO BID, TAB 12/04/18 Allergies Allergies: Coded Allergies: No Known Allergy (Unverified , 02/23/19) PMhx/Soc History of Surgery: Yes (COLON REECTION WITH ILEOSTOMY) Anesthesia Reaction: No Hx 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 Disorder: No Hx Respiratory Disorders: No Hx Cardiac Disorders: No Hx Psychiatric Problems: No Hx Miscellaneous Medical Probl: Yes (colon ca ) Hx Alcohol Use: No Hx Substance Use: Yes Hx Tobacco Use: Yes Smoking Status: Current every day smoker Physical Exam Vitals Vital Signs Date Temp Pulse Resp B/P (MAP) Pulse Ox O2 O2 Flow FiO2 Time Delivery Rate 02/23/19 74 16 106/64 98 Room Air 11:57 (78) 02/23/19 97 18 112/57 98 Room Air 10:31 (75) 02/23/19 98.3 80 20 160/74 98 09:07 (102) Physical Exam Constitutional:Well-developed. Patient crying moving around in pain. HEENT:Normocephalic. Atraumatic.Pupils were equal round reactive to light. Moist mucous membranes.No tonsillar exudates. Neck: No nuchal rigidity. No lymphadenopathy. No posterior cervical spine tenderness or step-offs. Respiratory: Not using accessory muscles of respiration.Lungs were clear to auscultation bilaterally. No rhonchi. No rales. No wheezing. Cardiovascular: Regular rate regular rhythm.No murmurs. No rubs were appreciated.S1, S2 normal. Distal pulses are palpable 2+ bilaterally. GI: Abdomen was soft. Mild diffuse tenderness.. Non Distended. No pulsatile abdominal masses or bruits. No rebound. No guarding. Bowel sounds were present and normal. Muscle skeletal: Full range of motion of both the upper and lower extremities bilaterally.Normal muscle tone.No assymetrical calf tenderness or swelling. Skin: No petechia, no purpura. No lesions on the palms or the soles of the feet. No maculopapular rash. NEURO: Patient was alert, awake, orientated x3.No facial droop. Gait not observed as patient stated he was in too much pain to ambulate..Speech had regular rate and rhythm. No focal neurological deficits. Result Diagram: 02/23/1934 02/23/19 0934 Results 24 hrs Laboratory Tests Test 02/23/19 09:34 White Blood Count 9.7 10^3/ul Red Blood Count 4.18 10^6/ul Hemoglobin 12.3 g/dl Hematocrit 38.4 % Mean Corpuscular Volume 91.9 fl Mean Corpuscular Hemoglobin 29.4 pg Mean Corpuscular Hemoglobin Concent 32.0 g/dl Red Cell Distribution Width 18.2 % Platelet Count 424 10^3/UL Mean Platelet Volume 9.3 fl Immature Granulocytes % 0.500 % Neutrophils % 82.6 % Lymphocytes % 7.3 % Monocytes % 9.1 % Eosinophils % 0.2 % Basophils % 0.3 % Nucleated Red Blood Cells % 0.0 /100WBC Immature Granulocytes # 0.050 10^3/ul Neutrophils # 8.0 10^3/ul Lymphocytes # 0.7 10^3/ul Monocytes # 0.9 10^3/ul Eosinophils # 0.0 10^3/ul Basophils # 0.0 10^3/ul Nucleated Red Blood Cells # 0.0 10^3/ul Prothrombin Time 12.9 Sec Prothrombin Time Ratio 1.0 INR International Normalized Ratio 0.96 Activated Partial Thromboplast Time 30.0 Sec Sodium Level 146 mmol/L Potassium Level 3.9 mmol/L Chloride Level 108 mmol/L Carbon Dioxide Level 27 mmol/L Anion Gap 11 Blood Urea Nitrogen 11 mg/dl Creatinine 0.71 mg/dl Est Glomerular Filtrat Rate mL/min > 60 mL/min Glucose Level 178 mg/dl Calcium Level 9.8 mg/dl Total Bilirubin 0.1 mg/dl Direct Bilirubin 0.00 mg/dl Indirect Bilirubin 0.1 mg/dl Aspartate Amino Transf (AST/SGOT) 17 IU/L Alanine Aminotransferase (ALT/SGPT) 10 IU/L Alkaline Phosphatase 129 IU/L Troponin I < 0.012 ng/ml Total Protein 7.6 g/dl Albumin 4.1 g/dl Globulin 3.50 g/dl Albumin/Globulin Ratio 1.17 Amylase Level 48 U/L Lipase 14 U/L Current Medications Medications Dose Sig/Devan Start Time Status Last (Trade) Ordered Route PRN Stop Time Admin Dose Reason Admin Sodium 1,000 ml @ Q1H STAT 02/23/19 DC 02/23/19 Chloride 1,000 mls/hr IV 09:10 02/23/19 09:23 10:09 1 mg ONCE STAT 02/23/19 DC 02/23/19 Hydromorphone IV 09:10 02/23/19 09:19 HCl 09:12 (Dilaudid) Ondansetron 4 mg ONCE STAT 02/23/19 DC 02/23/19 HCl (Zofran IV 09:10 02/23/19 09:19 Inj) 09:12 2 mg ONCE STAT 02/23/19 DC 02/23/19 Hydromorphone IV 09:44 02/23/19 09:52 HCl 09:45 (Dilaudid) Sodium 1,000 ml @ Q1H STAT 02/23/19 DC 02/23/19 Chloride 1,000 mls/hr IV 11:31 02/23/19 11:49 12:30 2 mg ONCE STAT 02/23/19 DC 02/23/19 Hydromorphone IV 11:31 02/23/19 11:49 HCl 11:34 (Dilaudid) Ondansetron 4 mg ONCE STAT 02/23/19 DC 02/23/19 HCl (Zofran IV 11:31 02/23/19 11:49 Inj) 11:34 Iohexol 150 ml STK-MED 02/23/19 DC 02/23/19 (Omnipaque ONCE .ROUTE 12:46 02/23/19 13:21 300mg/ ml) 12:47 Sodium 100 ml @ ud STK-MED 02/23/19 DC 02/23/19 Chloride ONCE .ROUTE 12:47 02/23/19 13:21 12:48 Procedures/MDM This patient presented to the emergency department with abdominal pain and was seen and evaluated by myself. My differential diagnosis included but was not limited to abdominal aortic aneurysm, appendicitis, pancreatitis, perforated peptic ulcer, perforated viscus, Boerhaaves syndrome or visceral pain such as diverticulitis, DKA, esophagitis, hepatitis or bowel obstruction. The patient was placed on a workers compensation administrator, continuous pulse oximetry, and IV access was established by nursing staff. The patient had mild diffuse tenderness but no peritoneal signs. The patient had multiple previous imaging of his abdomen. There is no physical exam findings to suggest a surgical abdomen at this time or bowel obstruction. The patient had been experiencing multiple episodes of emesis and stated that he had been unable to take his medications orally and therefore is requesting Dilaudid. He indicated that 1 mg of Dilaudid is not enough and he was requesting more analgesic medication. He did receive this in the emergency department is also given IV fluids in addition to Zofran as an antiemetic. The patient had no leukocytosis. The patient's serum sodium was slightly elevated 146. Observation Note: Time: 4 hours Family Hx: No Hypertension Evaluation: Multiple exams showed improving symptoms and no evidence of worsening of his scheduled conditions. He was now able to tolerate oral intake. Therefore I did feel that the patient was safe to be discharged home to follow- up with his colorectal surgeon first thing tomorrow. He was provided copies of all of his ancillary laboratory work. The patient appeared to continue to be in more pain. Repeat abdominal examination showed no peritoneal findings. I performed a rectal examination which appeared to be normal. Patient normal specter tone. Fecal occult blood test was negative. There is no changes over the perianal region. The patient still was requesting more analgesic medication. This was initially provided. The patient was now stating that he was demanding a CT scan due to the severity of his pain. I performed a CT of the abdomen that was reviewed by the radiologist and indicated the followin. Perirectal and presacral soft tissue density with circumferential thickening of the hernandez of the rectum. Findings are not significantly change since prior study dated January 24, 2019. Although findings could represent colitis, malignancy is not excluded. 2. No evidence of bowel obstruction. Small bowel postsurgical changes. Stool filled loops of large bowel suggestive of constipation. 3. Bilateral nonobstructing nephrolithiasis. No evidence of obstructive uropat hy. 4. No evidence of free fluid or free air. No gross focal fluid collections. The patient is being seen tomorrow by his colorectal surgeon. He will be provided copies of all of his ancillary laboratory work. He was able to tolerate oral intake at the time of discharge. The patient was discharged home in fair condition. They were instructed to return to the emergency department at any time if there was any worsening of their condition. The patient stated they would follow up with their PCP in the next 24-48 hours to initiate a suitable medication regimen under the care of their PCP as well as to allow their PCP to monitor any drug reactions. The patient was discharged home with prescriptions after they gave informed consent to the new medication. They were also fully informed by myself on the adverse effects and adverse drug interactions in order to provide adequate safeguards to prevent possible adverse reactions to medications. Departure Diagnosis: Primary Impression: Nausea and vomiting Vomiting type: cyclical vomiting Vomiting Intractability: non-intractable Qualified Codes: G43.A0 - Cyclical vomiting, not intractable Additional Impression: Chronic generalized abdominal pain Condition: GOKUL Mari MD February 23, 2019 10:32
[2019-02-23] MEDS ORDERED: IOHEXOL 300MG/ML 150 ML BTL ONE (12:46)
[2019-02-23] MEDS ORDERED: SOD CHLORIDE 0.9% 100 ML ONE (12:47)
[2019-02-23] MEDS ORDERED: HYDROmorphONE 2 MG/ML SYG IV STA (13:59)
[2019-02-23 16:00] VITALS: BP 112/74; PULSE 74; RESP 16
== END 2019-02-23 16:47 | disposition home or self-care (01) ==
LOC: E/R 09:00
DX: G43.A0 Cyclical vomiting, in migraine, not intractable (principal); R10.84 Generalized abdominal pain; F17.210 Nicotine dependence, cigarettes, uncomplicated; Z85.038 Personal history of other malignant neoplasm of large intestine; Z85.048 Personal history of other malignant neoplasm of rectum, rectosigmoid junction, and anus
CPT/HCPCS: 36415; 74177; 80053; 82150; 83690; 84484; 85025; 85610; 85730; 96361; 96374; 96375; 96376; J1170; J2405; J7030; Q9967; Z7502; Z7610

== ENCOUNTER 2019-04-21 09:03 | Day surgery (SDC) | payer OTHER ==
[~2019-04-21] VITALS: Ht 177.8 cm; Wt 66.4 kg
[2019-04-21 10:03] VITALS: Ht 177.8 cm; Wt 66.4 kg
[2019-04-21] MEDS ORDERED: ANTIBIOTICS X2 (10:12)
[2019-04-21] MEDS ORDERED: PANTOPRAZOLE (10:14)
--- NOTE | 2019-04-21 10:55 | PREAC ---
Date/Time of Note Date/Time of Note DATE: 04/21/19 TIME: 10:53 Anesthesia Eval and Record Evaluation Time Pre-Procedure Interview DATE: 04/21/19 TIME: 10:53 Age 43 Sex male NPO: 8 hrs Preoperative diagnosis Abdominal pain, Rectal bleeding Planned procedure EGD, Colonoscopy Past Medical History Past Medical History: Includes GI: Obesity Surgery & Anesthesia Issues No known issue Meds Anticoagulation: No Beta Anders within 24 hr: No Reason Beta Anders not given: Pt. not on B-Anders Active Scripts Pantoprazole* (Protonix*) 40 Mg Tablet.dr, 40 MG PO AC BREAKFAST, #30 TAB Prov:GEMMA JENKINS NP 01/26/19 Reported Medications [Pantoprazole] No Conflict Check 04/21/19 [Antibiotics X2] No Conflict Check 04/21/19 Hydromorphone Hcl* (Dilaudid*) 2 Mg Tablet, 4 MG PO Q6H PRN for PAIN LEVEL 7-10, TAB 02/09/19 Hydrocodone/Acetaminophen (Hydrocodone-Acetamin 10-325 mg) 1 Each Tablet, 1 TAB ORAL Q4 PRN for PAIN LEVEL 6-10 01/25/19 Discontinued Reported Medications Ondansetron Hcl* (Ondansetron Hcl*) 8 Mg Tablet, 1 TAB ORAL Q6 PRN for NAUSEA AND/OR VOMITING 02/09/19 Metoclopramide Hcl* (Metoclopramide Hcl*) 10 Mg Tablet, 1 TAB ORAL tidac PRN for NAUSEA AND/OR VOMITING 02/09/19 Capecitabine* (Xeloda*) 500 Mg Tablet, 1500 MG PO BID, TAB 12/04/18 Discontinued Scripts Prochlorperazine* (Prochlorperazine*) 10 Mg Tablet, 10 MG PO Q6H PRN for NAUSEA, #30 TAB This dosage as instructed by for breakthrough nausea. Prov:GEMMA JENKINS NP 01/26/19 Meds reviewed: Yes Allergies Coded Allergies: No Known Allergy (Unverified , 02/23/19) Allergies Reviewed: Yes Labs/Studies Labs Reviewed: Reviewed by anesthesiologist test: N/A Studies: ECG Pre-procedure Exam Last vitals BP:122/56, P:78, Spo2:100%, T:98,8 Airway: Adequate mouth opening, Adequate thyromental dist Mallampati: Mallampati II Teeth: Normal Lung: Normal Heart: Normal ASA Physical Status ASA physical status: 2 Emergency: None Planned Anesthetic General/MAC: MAC Planned Pain Management Parenteral pain med Pre-operative Attestations Prior to commencing anesthesia and surgery, the patient was re-evaluated, there was verification of: *The patient's identity *The results of appropriate recent lab work and preoperative vital signs *The above evaluation not changing prior to induction *Anesthetic plan, risk benefits, alternative and complications discussed with patient/family; questions answered; patient/family understands, accepts and wishes to proceed. GLORIA GONZALEZ MD Apr 21, 2019 10:55
[2019-04-21] MEDS ORDERED: LIDOCAINE 2% (SDV) 5 ML INJ ONE (11:08)
[2019-04-21] MEDS ORDERED: PROPOFOL 60 ML ONE (11:08)
[2019-04-21 11:10] VITALS: BP 114/65; PULSE 61; RESP 16
--- NOTE | 2019-04-21 11:44 | PAC ---
Date/Time of Note Date/Time of Note DATE: 04/21/19 TIME: 11:43 Post-Anesthesia Notes Post-Anesthesia Note Activity: WNL Respiratory function: WNL Cardiovascular function: WNL Mental status: Baseline Pain reasonably controlled: Yes Hydration appropriate: Yes Nausea/Vomiting absent: Yes Comments BP:112/56, P:68, Spo2:100%, T:98,9 GLORIA GONZALEZ MD Apr 21, 2019 11:44
[2019-04-21] MEDS ORDERED: MIDAZOLAM 1 MG/ML 2 ML INJ ONE (11:48)
[2019-04-21 11:59] VITALS: BP 103/59; PULSE 70; RESP 21
--- NOTE | 2019-04-21 14:47 | CONS ---
DATE OF ADMISSION: 04/21/2019 DATE OF CONSULTATION: PATIENT NAME: WALE SHETH TYPE OF CONSULTATION: Preoperative gastroenterology. Dear Dr. Mccoy: I thank you very much for this kind referral. HISTORY OF PRESENT ILLNESS: Mr. Wale Sheth is a 43-year-old male patient who has been referred to me for further evaluation of upper abdominal pain with feeling of fullness and bloating after eat ing. The patient also complains of change in the bowel habit and change in the caliber of the stool with rectal bleeding. The patient had rectal cancer for which he has undergone chemotherapy and radi ation followed by surgery. He had temporary ileostomy followed by reversal surgery. Not on nonstero idal anti-inflammatory agents. The patient takes Vicodin and Dilaudid for the pain. He also complai ns of pain in the lower extremities. Not a hypertensive or diabetic. No heart disease, lung problem or kidney disease. SOCIAL HISTORY: He is a smoker. Also smokes marijuana. No alcohol abuse. FAMILY HISTORY: No family history of gastrointestinal tract neoplasm. ALLERGIES: NO DRUG ALLERGIES. MEDICATIONS: 1. Dilaudid. 2. Vicodin. PHYSICAL EXAMINATION: VITAL SIGNS: He is 5 feet, 10 inches tall and weighs 147 pounds. HEART: Normal heart sounds. LUNGS: Clear. ABDOMEN: Soft. No masses. Normal bowel sounds. RECTAL: Deferred per the patient's request. It will be done at the time of colonoscopy. NEUROLOGIC: Normal. IMPRESSION: 1. Upper abdominal pain associated with bloating. 2. Change in the bowel habit and change in the caliber of the stool with rectal bleeding. 3. Status post chemotherapy, radiation and surgery for rectal cancer. 4. Temporary ileostomy followed by reversal. 5. The patient is a smoker and he also smokes marijuana. 6. He takes Dilaudid and Vicodin for pain. PLAN: 1. Omeprazole 40 mg p.o. q.a.m. 2. Endoscopy and colonoscopy for further evaluation. 3. Because of the use of Vicodin and Dilaudid, the patient will be resistant to narcotics and he nee ds monitored anesthesia care. The procedures and possible complications are well explained to the patient and the family. They und erstand and consent to the procedures. I thank you once again. With warmest personal regards, Dictated By: TREASURE CABRERA/LORI Conf#: [id number] DID#: [id number]
== END 2019-04-21 14:23 | disposition home or self-care (01) ==
LOC: GIL 09:03
PROVIDERS: ATTEND Internal Medicine Gastroenterology
DX: R19.4 Change in bowel habit (principal); K62.89 Other specified diseases of anus and rectum; K29.50 Unspecified chronic gastritis without bleeding
CPT/HCPCS: 43239; 45380; 88305; 88312; J2250; Z7610

== ENCOUNTER 2019-04-21 15:58 | Emergency (ER) | payer SELFPAY ==
[~2019-04-21 15:58] MED LIST changes: +ANTIBIOTICS X2; +PANTOPRAZOLE
== END 2019-04-21 17:15 | disposition left against medical advice (07) ==
LOC: E/R 15:58
DX: Z53.21 Procedure and treatment not carried out due to patient leaving prior to being seen by health care provider (principal)

== ENCOUNTER 2019-05-20 12:35 | Observation (INO) | payer OTHER ==
[~2019-05-20] VITALS: Ht 177.8 cm; Wt 68.7 kg
[~2019-05-20 12:35] MED LIST changes: -CAPE500T17 PO; +IBUP-1542 PO; +LORA-444 PO; -METO10TA3 ORAL; +ONDA4TAB14 PO; -ONDA8TAB83 ORAL; -PROC10TA10 PO; +TAMS-14 PO
[2019-05-20] MEDS ORDERED: ONDANSETRON 4 MG INJ IV STA ×2 (12:42→15:13)
[2019-05-20] MEDS ORDERED: SOD CHLORIDE 0.9% 1,000 ML IV STA (12:42)
[2019-05-20] MEDS ORDERED: HYDROmorphONE 1 MG/ML SYG IV STA ×2 (12:42→15:13)
--- NOTE | 2019-05-20 13:11 | ERD ---
ER Documentation Chief Complaint Chief Complaint HPI This is a 43-year-old male with a remote history of rectal carcinoma status post resection. The patient currently completed adjunctive chemotherapy roughly 5 months prior to arrival. He had also been on a cycle of Xeloda monotherapy prior to the adjunctive chemotherapy and follows up with his rn cvor oncologist Dr. Werner. The patient takes oral morphine Mcdonald Zofran and Compazine for pain and nausea. He presents to the emergency department today stating that he has had multiple episodes of nonbloody nonbilious emesis in the past 24 hours. He has abdominal cramping. He denies any rectal bleeding. He does have a history of constipation but indicates he did have a bowel movement within the past 24 hours. He denies any hemoptysis or hematemesis. No fevers or shaking no chills. He states that the symptoms are very similar to previous exacerbations of pain and nausea which is prompted him to come to the emergency department to receive IV fluids and analgesic medication. He saw his rectal surgeon 2 weeks prior to arrival. His recent PET scan showed no active carcinoma. ROS All systems reviewed and are negative except as per history of present illness. Medications Home Meds Active Scripts Pantoprazole* (Protonix*) 40 Mg Tablet.dr, 40 MG PO AC BREAKFAST, #30 TAB Prov:GEMMA JENKINS V. [employer] HELPER 01/26/19 Reported Medications Hydromorphone Hcl* (Dilaudid*) 2 Mg Tablet, 4 MG PO Q6H PRN for PAIN LEVEL 7-10, TAB 02/09/19 Hydrocodone/Acetaminophen (Hydrocodone-Acetamin 10-325 mg) 1 Each Tablet, 1 TAB ORAL Q4 PRN for PAIN LEVEL 6-10 01/25/19 Discontinued Reported Medications [Pantoprazole] No Conflict Check 04/21/19 [Antibiotics X2] No Conflict Check 04/21/19 Allergies Allergies: Coded Allergies: No Known Allergy (Unverified , 05/20/19) PMhx/Soc History of Surgery: Yes (ILEOSTOMY W/ REVERSAL) Anesthesia Reaction: No Hx 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 Disorder: No Hx Respiratory Disorders: No Hx Cardiac Disorders: No Hx Psychiatric Problems: No Hx Miscellaneous Medical Probl: No Hx Alcohol Use: Yes Hx Substance Use: Yes (MARIJUANA (LAST USE 04/21/19)) Hx Tobacco Use: Yes Physical Exam Vitals Vital Signs Date Temp Pulse Resp B/P (MAP) Pulse Ox O2 O2 Flow FiO2 Time Delivery Rate 05/20/19 58 15 109/65 98 Room Air 16:23 (80) 05/20/19 97.1 48 18 181/73 98 12:46 (109) Physical Exam Constitutional:Well-developed. Well-nourished. Patient appeared to be in discomfort secondary to pain HEENT:Normocephalic. Atraumatic.Pupils were equal round reactive to light. Dry mucous membranes.No tonsillar exudates. Neck: No nuchal rigidity. No lymphadenopathy. No posterior cervical spine tenderness or step-offs. Respiratory: Not using accessory muscles of respiration.Lungs were clear to auscultation bilaterally. No rhonchi. No rales. No wheezing. Cardiovascular: Regular rate regular rhythm.No murmurs. No rubs were appreciated.S1, S2 normal. Distal pulses are palpable 2+ bilaterally. GI: Abdomen was soft. Mild diffuse tenderness. Non Distended. No pulsatile abdominal masses or bruits. No rebound. No guarding. Bowel sounds were present and normal. Muscle skeletal: Full range of motion of both the upper and lower extremities bilaterally.Normal muscle tone.No assymetrical calf tenderness or swelling. Skin: No petechia, no purpura. No lesions on the palms or the soles of the feet. No maculopapular rash. NEURO: Patient was alert, awake, orientated x3.No facial droop. Gait not observed and patient was in too much discomfort to ambulate on initial examination.Speech had regular rate and rhythm. No focal neurological deficits. Result Diagram: 05/20/19 1247 05/20/19 1247 Results 24 hrs Laboratory Tests Test 05/20/19 12:46 05/20/19 12:47 Prothrombin Time 12.6 Sec Prothrombin Time Ratio 1.0 INR International Normalized Ratio 0.93 Activated Partial Thromboplast Time 36.1 Sec White Blood Count 12.0 10^3/ul Red Blood Count 4.39 10^6/ul Hemoglobin 12.6 g/dl Hematocrit 38.7 % Mean Corpuscular Volume 88.2 fl Mean Corpuscular Hemoglobin 28.7 pg Mean Corpuscular Hemoglobin Concent 32.6 g/dl Red Cell Distribution Width 17.5 % Platelet Count 367 10^3/UL Mean Platelet Volume 9.4 fl Immature Granulocytes % 0.500 % Neutrophils % 89.0 % Lymphocytes % 5.7 % Monocytes % 4.2 % Eosinophils % 0.3 % Basophils % 0.3 % Nucleated Red Blood Cells % 0.0 /100WBC Immature Granulocytes # 0.060 10^3/ul Neutrophils # 10.7 10^3/ul Lymphocytes # 0.7 10^3/ul Monocytes # 0.5 10^3/ul Eosinophils # 0.0 10^3/ul Basophils # 0.0 10^3/ul Nucleated Red Blood Cells # 0.0 10^3/ul Sodium Level 142 mmol/L Potassium Level 3.7 mmol/L Chloride Level 108 mmol/L Carbon Dioxide Level 24 mmol/L Anion Gap 10 Blood Urea Nitrogen 12 mg/dl Creatinine 0.69 mg/dl Est Glomerular Filtrat Rate mL/min > 60 mL/min Glucose Level 134 mg/dl Calcium Level 9.7 mg/dl Total Bilirubin 0.5 mg/dl Direct Bilirubin 0.00 mg/dl Indirect Bilirubin 0.5 mg/dl Aspartate Amino Transf (AST/SGOT) 22 IU/L Alanine Aminotransferase (ALT/SGPT) 17 IU/L Alkaline Phosphatase 138 IU/L Total Protein 7.5 g/dl Albumin 4.4 g/dl Globulin 3.10 g/dl Albumin/Globulin Ratio 1.41 Amylase Level 57 U/L Lipase 28 U/L Current Medications Medications Dose Sig/Devan Start Time Status Last (Trade) Ordered Route PRN Stop Time Admin Dose Reason Admin Sodium 1,000 ml @ Q1H STAT 05/20/19 DC 05/20/19 Chloride 1,000 mls/hr IV 12:42 05/20/19 12:49 13:41 2 mg ONCE STAT 05/20/19 DC 05/20/19 Hydromorphone IV 12:42 05/20/19 12:50 HCl 12:44 (Dilaudid) Ondansetron 4 mg ONCE STAT 05/20/19 DC 05/20/19 HCl (Zofran IV 12:42 05/20/19 12:50 Inj) 12:44 2 mg ONCE STAT 05/20/19 DC 05/20/19 Hydromorphone IV 15:13 05/20/19 15:23 HCl 15:14 (Dilaudid) Ondansetron 4 mg ONCE STAT 05/20/19 DC 8/1/19 HCl (Zofran IV 15:13 05/20/19 15:23 Inj) 15:14 Sodium 1,000 ml @ [id number] IV 05/20/19 Chloride 70 mls/hr 16:21 IV Flush 3 ml PER 05/20/19 (NS 3 ml) PROTOCOL IV 16:30 Ondansetron 4 mg Q6H PRN 05/20/19 HCl (Zofran IV 16:30 Inj) NAUSEA/VOMITI NG 650 mg Q6H PRN 05/20/19 Acetaminophen PO .PAIN 1-3 16:30 (Tylenol OR TEMP Tab) Oxycodone/ 1 tab Q6H PRN 05/20/19 Acetaminophen PO .PAINS 16:30 (Percocet 4-6 (5/ 325)) 2 mg Q3H PRN 05/20/19 Hydromorphone IV .PAIN 16:30 HCl 7-10 (Dilaudid) Magnesium 30 ml DAILY PRN 05/20/19 Hydroxide PO 16:30 (Milk Of Mag) .CONSTIPATION Bisacodyl 5 mg DAILY PRN 05/20/19 (Dulcolax) PO 16:30 .CONSTIPATION 40 mg DAILY@06 05/21/19 Pantoprazole IV 06:00 (Protonix Iv) Scopolamine 1 patch Q72H 05/20/19 TRANSDERM 17:30 (Transderm-Sc op) Ondansetron 4 mg BRIDGE ORDER 05/20/19 HCl (Zofran PRN IV 17:00 05/21/19 Inj) NAUSEA/VOMITI 16:59 NG 650 mg ER BRIDGE 05/20/19 Acetaminophen PRN PO 17:00 05/21/19 (Tylenol .MILD PAIN 16:59 Tab) 1-3 OR TEMP Procedures/MDM This Is a 40-year-old male with a known history of rectal carcinoma that pre sented to the emergency department with nausea vomiting and mild abdominal discomfort. The patient had no peritoneal signs on his abdomen. He has had multiple previous emergency room visits for similar pain. I do not feel is necessary at this time to obtain any radiographic imaging. Patient no severe electrolyte abnormalities. The patient received intravenous Dilaudid and Zofran. Observation Note: Time: 4 hours Family Hx: No Hypertension Evaluation: Multiple exams showed improving symptoms and no evidence of improvement of his conditions. The patient was still requesting analgesic me dication stating he was in pain. I spoke with his rn cvor oncologist Dr. Werner in length. She indicated that the patient had a recent colonoscopy and was cancer free at this time. The patient had granulation tissue from previous radiation however at this time the patient has no evidence of cancer. I did feel that the patient's symptoms could be opiate withdraw causing his persistent nausea. However the patient will be admitted for observation under the care of the hospitalist. Dr. Mccoy will be consulted. Departure Diagnosis: Primary Impression: Nausea and vomiting Vomiting type: unspecified Vomiting Intractability: non-intractable Qualified Codes: R11.2 - Nausea with vomiting, unspecified Condition: Serious GOKUL TEIXEIRA MD May 20, 2019 13:11
[2019-05-20] MEDS ORDERED: HYDROmorphONE 2 MG/ML SYG IV PRN (16:30)
[2019-05-20] MEDS ORDERED: MAGNESIUM HYDROXIDE 30ML CUP PO PRN (16:30)
[2019-05-20] MEDS ORDERED: BISACODYL (EC) 5 MG TAB PO PRN (16:30)
[2019-05-20] MEDS ORDERED: OXYCODONE/ACETAMINOPHEN (5/325) TAB PO PRN (16:30)
[2019-05-20] MEDS ORDERED: ACETAMINOPHEN 325 MG TAB PO PRN ×2 (16:30→17:00)
[2019-05-20] MEDS ORDERED: NACL 0.9% 3 ML SYG IV SCH (16:30)
[2019-05-20] MEDS ORDERED: ONDANSETRON 4 MG INJ IV PRN (17:00)
[2019-05-20] MEDS ORDERED: METOCLOPRAMIDE 10 MG INJ ONE (17:00)
--- NOTE | 2019-05-20 17:26 | HP ---
Date/Time of Note Date/Time of Note DATE: 05/20/19 TIME: 17:25 Assessment/Plan VTE Prophylaxis Pharmacological prophylaxis: other Assessment/Plan Hospital Course HPI Patient is a male with a past medical history significant for rectal carcinoma status post resection, currently in remission and off of chemotherapy, last PET scan done 3 weeks ago who presents to [facility] for intractable nausea and vomiting. Patient is well-known to the service and is routinely in the emergency room for persistent nausea and vomiting that originated when he first was diagnosed with colon cancer. Patient states that he has chronic abdominal pain and cramping and that currently the abdominal pain is not acute and unchanged from his baseline. Patient's current complaint is his worsening nausea and vomiting, patient states that he does not necessarily know what triggered it except for some episodes of constipation likely related to his pain medication. Other than his nausea vomiting, patient denies any other symptoms that are new. Patient states that as recent as 3 weeks ago he was hospitalized and a upper endoscopy, MRI, CT, PET scan was done and also a recent colonoscopy was done with biopsy of a possible mass in his rectum that did not show as cancer. Patient currently denies chest pain, shortness of breath, headache, leg pain. Objective Physical exam General: Patient is laying in bed and answers questions appropriately Mentation: Patient is alert and oriented 4, Head: Normocephalic atraumatic Eyes: EOMI, pupils reactive to light Neck: Supple, nontender, midline Respiratory: Clear to auscultation bilaterally Cardiovascular: regular rate, no obvious murmurs Gastrointestinal: Mildly-tender to palpation, bowel sounds heard. 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: Moves all extremities spontaneously Skin: No new skin lesions Assessment and plan Persistent nausea and vomiting, acute on chronic -Patient deals with chronic nausea and vomiting, however this particular episode was mildly worse, patient is hospitalized multiple times in the past few months for similar issues -Scopolamine patch, continue home dronabinol, IV Zofran as needed as patient states that the IV Zofran works very well -IV fluid -Clear liquid diet Abdominal pain, chronic -No change in patient's baseline chronic abdominal pain -IV Dilaudid for now as patient is highly tolerant to pain medication, on oral Dilaudid at home and unable to tolerate much p.o. at this time due to above nausea and vomiting -No need for new scan as there is no change in patient's baseline abdominal pain and him receiving full work-up including MRI, CT, colonoscopy, upper endoscopy as recent as 2 to 3 weeks ago. History of rectal cancer, status post resection -Per patient he is in remission, patient's oncologist on board -Off of chemotherapy orals Cannabinoid use -Hold off for now, patient uses this for chronic pain issues Chronic opiate dependence -Patient is not chronically on opiates due to his history of rectal cancer as well as multiple complications from his rectal cancer surgeries. -using Dilaudid as patient is on p.o. Dilaudid at home Disposition -Patient's main issue currently is his nausea vomiting, use antiemetics, IV pain medication for his chronic pain, patient's oncologist to follow Result Diagram: 05/20/19 1247 05/20/19 1247 Results 24hrs Laboratory Tests Test 05/20/19 12:46 05/20/19 12:47 Prothrombin Time 12.6 Prothrombin Time Ratio 1.0 INR International Normalized Ratio 0.93 Activated Partial Thromboplast Time 36.1 H White Blood Count 12.0 #H Red Blood Count 4.39 L Hemoglobin 12.6 L Hematocrit 38.7 L Mean Corpuscular Volume 88.2 Mean Corpuscular Hemoglobin 28.7 L Mean Corpuscular Hemoglobin Concent 32.6 Red Cell Distribution Width 17.5 H Platelet Count 367 Mean Platelet Volume 9.4 Immature Granulocytes % 0.500 H Neutrophils % 89.0 H Lymphocytes % 5.7 L Monocytes % 4.2 Eosinophils % 0.3 Basophils % 0.3 Nucleated Red Blood Cells % 0.0 Immature Granulocytes # 0.060 H Neutrophils # 10.7 H Lymphocytes # 0.7 L Monocytes # 0.5 Eosinophils # 0.0 Basophils # 0.0 Nucleated Red Blood Cells # 0.0 Sodium Level 142 Potassium Level 3.7 Chloride Level 108 Carbon Dioxide Level 24 Anion Gap 10 Blood Urea Nitrogen 12 Creatinine 0.69 Est Glomerular Filtrat Rate mL/min > 60 Glucose Level 134 Calcium Level 9.7 Total Bilirubin 0.5 Direct Bilirubin 0.00 Indirect Bilirubin 0.5 Aspartate Amino Transf (AST/SGOT) 22 Alanine Aminotransferase (ALT/SGPT) 17 Alkaline Phosphatase 138 H Total Protein 7.5 Albumin 4.4 Globulin 3.10 Albumin/Globulin Ratio 1.41 Amylase Level 57 Lipase 28 HPI/ROS Admit Date/Time Admit Date/Time PMH/Family/Social Past Medical History Coded Allergies: No Known Allergy (Unverified , 05/20/19) Past Surgical History Past Surgical Hx: bowel resection, other Family History Significant Family History: no pertinent family hx Social History Smoking Status: Current every day smoker Exam/Review of Systems Vital Signs Vitals Vital Signs Date Temp Pulse Resp B/P (MAP) Pulse Ox O2 O2 Flow FiO2 Time Delivery Rate 05/20/19 97.1 48 18 181/73 98 12:46 (109) JAMES BEACH May 20, 2019 17:26
[2019-05-20] MEDS ORDERED: hydrALAzine 20 MG INJ IV PRN (17:30)
[2019-05-20] MEDS ORDERED: SCOPOLAMINE 1.5 MG PATCH TRANSDERM SCH (17:30)
[2019-05-20] MEDS: ONDANSETRON 4 MG INJ IV PRN (17:55)
[2019-05-20 18:32] VITALS: BP_SYST 184; BP_SYST 192; BP_DIAS 100; BP_DIAS 80; PULSE 42; PULSE 47
[2019-05-20 18:33] VITALS: BP 165/74; PULSE 42; PULSE 50
[2019-05-20 18:35] VITALS: BP 165/74; PULSE 50; RESP 18
[2019-05-20] MEDS: HYDROmorphONE 2 MG/ML SYG IV PRN ×3 (18:51→22:32)
[2019-05-20 18:54] VITALS: PULSE 67
[2019-05-20 20:00] VITALS: BP 103/50; PULSE 56; RESP 18; Ht 177.8 cm; Wt 68.7 kg
[2019-05-20] MEDS ORDERED: METOCLOPRAMIDE 10 MG INJ IV PRN (20:00)
[2019-05-20] MEDS: SOD CHLORIDE 0.9% 1,000 ML IV SCH (20:38)
[2019-05-20] MEDS: DRONABINOL 2.5 MG CAP PO SCH (21:45)
[2019-05-20 22:30] VITALS: BP 121/66; PULSE 53
[2019-05-21] VITALS (7 sets, daily range): BP systolic 100–125; BP diastolic 58–70; PULSE 50–72; RESP 16–19
[2019-05-21] MEDS: HYDROmorphONE 2 MG/ML SYG IV PRN ×12 (00:28→23:12)
[2019-05-21] MEDS: ONDANSETRON 4 MG INJ IV PRN ×2 (04:52→10:56)
[2019-05-21] MEDS: PANTOPRAZOLE 40 MG INJ IV SCH (06:23)
[2019-05-21] MEDS: SOD CHLORIDE 0.9% 1,000 ML IV SCH ×3 (06:39→23:17)
[2019-05-21] MEDS: DRONABINOL 2.5 MG CAP PO SCH ×2 (08:57→20:14)
--- NOTE | 2019-05-21 11:13 | CONS ---
Assessment/Plan Assessment/Plan Hospital Course (Demo Recall) #rectal ca, MSI stable, T3 lesion with perirectal LAD -s/p Xeloda 1500 mg p.o. b.i.d. with radiation . s/p 6 week course completed -04/13/[address] reveals perisistant rectal thickening likely related to post radiation disease. -04/21/19 Scope could not be advanced through during colonoscopy, but gastric biopsy from endoscopy and rectal biopsy showed no evidence of malignancy. Stricture is highly likely from radiation tx received. Patient saw colorectal surgeon and repeat bx also demonstrated no evidence of disease -given that patient has persistent nausea, abdominal pain, and difficulty with BM's we would like to refer the patient to [facility] oncology and [facility] oncology to obtain a second opinion on his case. We have done repeated scans, and procedures and tried many different medications which have not appeared to control his symptoms. He has repeated hospital admissions for the same complaints and it is now beyond my scope of expertise. #Nausea -continues to c/o uncontrolled nausea even with zofran, compazine, ativan, and reglan. will prescribe Dronabinol 5 mg PO BID today to see if that will curb the nausea and explained to patient that it has no relation to his rectal stricture or obstruction as patient said his constipation is relieved. #Abdominal pain -MRI pelvis done 03/2019 showed presacral soft tissue mass suggestive of post surgical, post radiation changes with chronic post infectious changes. -on Dialudid, norco. -will MS Contin to 60 mg BID #Anxiety -refill for Ativan 1 mg PO q6h #Nephrolithiasis and hydronephrosis -s/p lithotripsy. -stent removal of stent #Bladder tumor -this appeared to be a superficial bladder tumor -pathology did not reveal evidence of malignancy Thank you for the opportunity to participate in this patients care A total of 40 minutes of face to face time was spent speaking with the patient, of which greater than 50% was spent in counseling and coordination of care and t he detailed question and answer session. Consultation Date/Type/Reason Admit Date/Time 05/21/19 Date of Consultation: May 21, 2019 Type of Consult oncology Reason for Consultation rectal cancer Requesting Provider: JAMES BEACH Date/Time of Note DATE: 05/21/19 TIME: 11:05 Hx of Present Illness 43 yo smoker, 1ppd x 25 years, started having upper abdominal discomfort and heartburn about 2 years ago. He also started having intermittent rectal bleeding at that time. Over the last 2 mos his symptoms became worse with daily BRBPR mixed in with stool. - 12/25/[address] Ruiz and underwent EGD and colonoscopy onshowing:reflux esophagitis, gastritis with erosions large rectal tumor extending up to 5 cm from anus.Path showed an invasive moderately differentiated adenocarcinoma. -01/14/18 CT C/A/P demonstrates several no nodules measuring 2 mm common 3 mm and 4 mm.nAlso seen is a 3 mm low density lesion in the hepatic dome and a 4 mm posterior 01/14/18 MRI pelvis demonstrates known rectal ca with perirectal adenopathy. -01/18/18 pt underwent ureteroscopy and laser lithotripsy and insertion of a JJ stent and later on removal of the JJ stent, status post resection of bladder tumor -01/27/18 pt started neoadjuvant concurrent chemotherapy with radiation -02/09/18 readmitted for pain to [facility] but discharged without complication -03/2018 admitted for nausea/ vomiting. Ct Brain was done and negative -04/14/18 Ct A/P re demonstrates 2 small non-obstructing left renal calculi largest measuring 0.8cm. rectal wall thickening noted -05/15/18 Pt underwent APR which revealed 5mm residual adenocarcinoma , grade 2, with tumor invading through muscularis propria into the pericolorectal tissue. all margins were uninvolved with disease. all 0/9 LN without disease. post op course was complicated by abscess and bleeding. pt has since recovered -10/07/[address] demonstrates post surgical changes -11/09/17 pt received cycle 1 of Xelox -02/2019 Ct A/P at [facility] revealed stable inflammation but no evidence of active disease -04/13/[address] reveals persistent rectal thickening likely related to post radiation disease. hypermetabolic extraluminal gas abd tracta extebdubg from the anorectal anastamosis concerning for infection with local recurrence not excluded -04/21/19 Endoscopy showed gastritis with erosions. Started on omeprazole 40 mg daily -04/21/19 during colonoscopy, the scope could not be advanced, might be possible recurrent tumor in the rectum with the stricture -04/21/19 stomach and rectal tumor biopsy pathology report showed no evidence of malignancy. -04/27/19 completed course of Cipro and flagyl yesterday Currently: 05/21/19 pt presents with intractable nausea and difficulty with bowel movements. He also has intractable abdominal pain. Constitutional: chills, diaphoresis, poor po Eyes: no complaints ENT: no complaints Respiratory: pleuritic pain Cardiovascular: no complaints Gastrointestinal: pain, constipation, decreased appetite, nausea, passing stool, vomiting Genitourinary: no complaints Musculoskeletal: back pain, bone/joint pain Skin: no complaints Neurologic: no complaints Endocrine: no complaints Psychological: anxiety, depression Past Medical History Home Meds Active Scripts Pantoprazole* (Protonix*) 40 Mg Tablet.dr, 40 MG PO AC BREAKFAST, #30 TAB Prov:GEMMA JENKINS V. [employer] 01/26/19 Reported Medications Lorazepam* (Ativan*) 2 Mg Tablet, 2 MG PO DAILY PRN for ANXIETY, #30 TAB 05/21/19 Hydromorphone Hcl* (Dilaudid*) 2 Mg Tablet, 8 MG PO Q2H PRN for PAIN LEVEL 7-10, TAB 02/09/19 Hydrocodone/Acetaminophen (Hydrocodone-Acetamin 10-325 mg) 1 Each Tablet, 1 TAB ORAL Q4 PRN for PAIN LEVEL 6-10 01/25/19 Discontinued Reported Medications [Pantoprazole] No Conflict Check 04/21/19 [Antibiotics X2] No Conflict Check 04/21/19 Medications Current Medications Sodium Chloride 1,000 ml @ 70 mls/hr [id number] IV Last administered on 05/21/19at 08:58; Admin Dose 70 MLS/HR; Start 05/20/19 at 16:21 IV Flush (NS 3 ml) 3 ml PER PROTOCOL IV ; Start 05/20/19 at 16:30 Ondansetron HCl (Zofran Inj) 4 mg Q6H PRN IV NAUSEA/VOMITING Last administered on 05/21/19at 10:56; Admin Dose 4 MG; Start 05/20/19 at 16:30 Acetaminophen (Tylenol Tab) 650 mg Q6H PRN PO .PAIN 1-3 OR TEMP; Start 05/20/19 at 16:30 Oxycodone/ Acetaminophen (Percocet (5/ 325)) 1 tab Q6H PRN PO .PAINS 4-6; Start 05/20/19 at 16:30 Magnesium Hydroxide (Milk Of Mag) 30 ml DAILY PRN PO .CONSTIPATION; Start 05/20/19 at 16:30 Bisacodyl (Dulcolax) 5 mg DAILY PRN PO .CONSTIPATION; Start 05/20/19 at 16:30 Pantoprazole (Protonix Iv) 40 mg DAILY@06 IV Last administered on 05/21/19at 06:23; Admin Dose 40 MG; Start 05/21/19 at 06:00 Scopolamine (Transderm-Scop) 1 patch Q72H TRANSDERM Last administered on 05/20/19at 21:44; Admin Dose 1 PATCH; Start 05/20/19 at 17:30 Dronabinol (Marinol) 5 mg BID PO Last administered on 05/21/19at 08:57; Admin Dose 5 MG; Start 05/20/19 at 21:00 Hydralazine HCl (Apresoline) 10 mg Q4H PRN IV sbp >160 Last administered on 05/20/19at 17:55; Admin Dose 10 MG; Start 05/20/19 at 17:30 Hydromorphone HCl (Dilaudid) 2 mg Q2H PRN IV .PAIN 7-10 Last administered on 05/21/19at 10:57; Admin Dose 2 MG; Start 05/20/19 at 19:00 Metoclopramide HCl (Reglan) 10 mg Q6H PRN IV NAUSEA AND/OR VOMITING Last administered on 05/21/19at 08:58; Admin Dose 10 MG; Start 05/20/19 at 20:00; Stop 05/21/19 at 20:00 Allergies: Coded Allergies: No Known Allergy (Unverified , 05/20/19) Past Surgical History Past Surgical Hx: bowel resection, other Family History Significant Family History: no pertinent family hx Social History Alcohol Use: none Smoking Status: Never smoker Drug Use: none Exam/Review of Systems Exam Vitals Vital Signs Date Temp Pulse Resp B/P (MAP) Pulse Ox O2 O2 Flow FiO2 Time Delivery Rate 05/21/19 98.0 52 16 125/70 98 11:04 (88) 05/21/19 Room Air 08:00 Intake and Output 05/20/19 05/20/19 05/21/19 1515:00 23:00 07:00 IntakeIntake Total 240 ml 1400 ml BalanceBalance 240 ml 1400 ml Constitutional: alert, oriented Psych: no complaints Head: normocephalic Eyes: nl conjunctiva ENMT: nl external ears & nose Neck: supple Respiratory: clear to auscultation Cardiovascular: regular rate and rhythm Gastrointestinal: soft Musculoskeletal: nl extremities to inspection Extremities: normal pulses Results Result Diagram: 05/21/19 0520 05/21/19 0521 Results 24hrs Laboratory Tests Test 05/20/19 12:46 05/20/19 12:47 05/21/19 05:20 05/21/19 05:21 Prothrombin Time 12.6 Prothrombin Time Ratio 1.0 INR International 0.93 Normalized Ratio Activated 36.1 H Partial Thromboplast Time White Blood Count 12.0 #H 9.6 Red Blood Count 4.39 L 3.87 L Hemoglobin 12.6 L 11.1 L Hematocrit 38.7 L 34.8 L Mean Corpuscular Volume 88.2 89.9 Mean Corpuscular 28.7 L 28.7 L Hemoglobin Mean Corpuscular 32.6 31.9 L Hemoglobin Concent Red Cell Distribution 17.5 H 18.0 H Width Platelet Count 367 344 Mean Platelet Volume 9.4 10.2 Immature Granulocytes % 0.500 H 0.300 Neutrophils % 89.0 H 78.5 H Lymphocytes % 5.7 L 11.3 L Monocytes % 4.2 8.6 Eosinophils % 0.3 0.9 Basophils % 0.3 0.4 Nucleated Red Blood 0.0 0.0 Cells % Immature Granulocytes # 0.060 H 0.030 Neutrophils # 10.7 H 7.5 Lymphocytes # 0.7 L 1.1 Monocytes # 0.5 0.8 Eosinophils # 0.0 0.1 Basophils # 0.0 0.0 Nucleated Red Blood 0.0 0.0 Cells # Sodium Level 142 142 Potassium Level 3.7 4.0 Chloride Level 108 106 Carbon Dioxide Level 24 28 Anion Gap 10 8 Blood Urea Nitrogen 12 10 Creatinine 0.69 0.64 Est Glomerular Filtrat > 60 > 60 Rate mL/min Glucose Level 134 103 Calcium Level 9.7 9.0 Total Bilirubin 0.5 0.5 Direct Bilirubin 0.00 0.00 Indirect Bilirubin 0.5 0.5 Aspartate Amino 22 22 Transf (AST/SGOT) Alanine 17 24 Aminotransferase (ALT/SG PT) Alkaline Phosphatase 138 H 106 Total Protein 7.5 6.6 Albumin 4.4 3.5 Globulin 3.10 3.10 Albumin/Globulin Ratio 1.41 1.12 Amylase Level 57 Lipase 28 Hemoglobin A1c 4.7 Magnesium Level 1.8 Triglycerides Level 87 Cholesterol Level 105 LDL Cholesterol, 64 Calculated HDL Cholesterol 24 L Cholesterol/HDL Ratio 4.3 Thyroid Stimulating 1.260 Hormone (TSH) Medications Medication Current Medications Sodium Chloride 1,000 ml @ 70 mls/hr [id number] IV Last administered on 05/21/19at 08:58; Admin Dose 70 MLS/HR; Start 05/20/19 at 16:21 IV Flush (NS 3 ml) 3 ml PER PROTOCOL IV ; Start 05/20/19 at 16:30 Ondansetron HCl (Zofran Inj) 4 mg Q6H PRN IV NAUSEA/VOMITING Last administered on 05/21/19at 10:56; Admin Dose 4 MG; Start 05/20/19 at 16:30 Acetaminophen (Tylenol Tab) 650 mg Q6H PRN PO .PAIN 1-3 OR TEMP; Start 05/20/19 at 16:30 Oxycodone/ Acetaminophen (Percocet (5/ 325)) 1 tab Q6H PRN PO .PAINS 4-6; Start 05/20/19 at 16:30 Magnesium Hydroxide (Milk Of Mag) 30 ml DAILY PRN PO .CONSTIPATION; Start 05/20/19 at 16:30 Bisacodyl (Dulcolax) 5 mg DAILY PRN PO .CONSTIPATION; Start 05/20/19 at 16:30 Pantoprazole (Protonix Iv) 40 mg DAILY@06 IV Last administered on 05/21/19at 06:23; Admin Dose 40 MG; Start 05/21/19 at 06:00 Scopolamine (Transderm-Scop) 1 patch Q72H TRANSDERM Last administered on 05/20/19at 21:44; Admin Dose 1 PATCH; Start 05/20/19 at 17:30 Dronabinol (Marinol) 5 mg BID PO Last administered on 05/21/19at 08:57; Admin Dose 5 MG; Start 05/20/19 at 21:00 Hydralazine HCl (Apresoline) 10 mg Q4H PRN IV sbp >160 Last administered on 05/20/19at 17:55; Admin Dose 10 MG; Start 05/20/19 at 17:30 Hydromorphone HCl (Dilaudid) 2 mg Q2H PRN IV .PAIN 7-10 Last administered on 05/21/19at 10:57; Admin Dose 2 MG; Start 05/20/19 at 19:00 Metoclopramide HCl (Reglan) 10 mg Q6H PRN IV NAUSEA AND/OR VOMITING Last administered on 05/21/19at 08:58; Admin Dose 10 MG; Start 05/20/19 at 20:00; Stop 05/21/19 at 20:00 MIMI ZENDEJAS M.D. May 21, 2019 11:13
--- NOTE | 2019-05-21 12:45 | CONS ---
Assessment/Plan Assessment/Plan Hospital Course (Demo Recall) Bradycardia in the setting of recurrent nausea and vomiting Recurrent nausea and vomiting concerning for cyclic vomiting syndrome Rectal cancer Chronic marijuana use Patient with bradycardia in the setting of nausea and recurrent vomiting Telemetry reviewed with sinus bradycardia 40s to 60s with brief junctional bradycardia. Patient denies any symptoms of dizziness or lightheadedness This is likely secondary to vagal response of recurrent vomiting. Heart rate currently in the 60s patient denies any history of lightheadedness or dizziness Echocardiogram pending Consultation Date/Type/Reason Admit Date/Time 05/21/19 Type of Consult Cardiology Reason for Consultation Bradycardia Date/Time of Note DATE: 05/21/19 TIME: 12:41 Hx of Present Illness This is a 43-year-old male with history of rectal cancer, recurrent nausea and vomiting concerning for cyclic vomiting syndrome presents with nausea and vomiting which is been worsening over the past 2 days. Patient found to be bradycardic as well as for this reason cardiology condition was requested. He denies any symptoms of dizziness or lightheadedness, shortness of breath at rest or with exertion. He is feeling much better today since his vomiting has improved. He denies any cardiac history. 12 point review of systems was performed with all pertinent positives and negatives mentioned above and all else is negative Past Medical History Rectal cancer Recurrent nausea and vomiting Home Meds Active Scripts Pantoprazole* (Protonix*) 40 Mg Tablet., 40 MG PO AC BREAKFAST, #30 TAB Prov:GEMMA JENKINS V[employer] 01/26/19 Reported Medications Lorazepam* (Ativan*) 2 Mg Tablet, 2 MG PO DAILY PRN for ANXIETY, #30 TAB 05/21/19 Hydromorphone Hcl* (Dilaudid*) 2 Mg Tablet, 8 MG PO Q2H PRN for PAIN LEVEL 7-10, TAB 02/09/19 Hydrocodone/Acetaminophen (Hydrocodone-Acetamin 10-325 mg) 1 Each Tablet, 1 TAB ORAL Q4 PRN for PAIN LEVEL 6-10 01/25/19 Discontinued Reported Medications [Pantoprazole] No Conflict Check 04/21/19 [Antibiotics X2] No Conflict Check 04/21/19 Medications Current Medications Sodium Chloride 1,000 ml @ 70 mls/hr [id number] IV Last administered on 05/21/19at 08:58; Admin Dose 70 MLS/HR; Start 05/20/19 at 16:21 IV Flush (NS 3 ml) 3 ml PER PROTOCOL IV ; Start 05/20/19 at 16:30 Ondansetron HCl (Zofran Inj) 4 mg Q6H PRN IV NAUSEA/VOMITING Last administered on 05/21/19at 10:56; Admin Dose 4 MG; Start 05/20/19 at 16:30 Acetaminophen (Tylenol Tab) 650 mg Q6H PRN PO .PAIN 1-3 OR TEMP; Start 05/20/19 at 16:30 Oxycodone/ Acetaminophen (Percocet (5/ 325)) 1 tab Q6H PRN PO .PAINS 4-6; Start 05/20/19 at 16:30 Magnesium Hydroxide (Milk Of Mag) 30 ml DAILY PRN PO .CONSTIPATION; Start 05/20/19 at 16:30 Bisacodyl (Dulcolax) 5 mg DAILY PRN PO .CONSTIPATION; Start 05/20/19 at 16:30 Pantoprazole (Protonix Iv) 40 mg DAILY@06 IV Last administered on 05/21/19at 06:23; Admin Dose 40 MG; Start 05/21/19 at 06:00 Scopolamine (Transderm-Scop) 1 patch Q72H TRANSDERM Last administered on 05/20/19at 21:44; Admin Dose 1 PATCH; Start 05/20/19 at 17:30 Dronabinol (Marinol) 5 mg BID PO Last administered on 05/21/19 08:57; Admin Dose 5 MG; Start 05/20/19 at 21:00 Hydralazine HCl (Apresoline) 10 mg Q4H PRN IV sbp >160 Last administered on 05/20/19at 17:55; Admin Dose 10 MG; Start 05/20/19 at 17:30 Hydromorphone HCl (Dilaudid) 2 mg Q2H PRN IV .PAIN 7-10 Last administered on 05/21/19 10:57; Admin Dose 2 MG; Start 05/20/19 at 19:00 Metoclopramide HCl (Reglan) 10 mg Q6H PRN IV NAUSEA AND/OR VOMITING Last administered on 05/21/19 08:58; Admin Dose 10 MG; Start 05/20/19 at 20:00; Stop 05/21/19 at 20:00 Allergies: Coded Allergies: No Known Allergy (Unverified , 05/20/19) Past Surgical History Past Surgical Hx: bowel resection, other Social History Alcohol Use: occasionally Smoking Status: Current every day smoker Drug Use: marijuana Exam/Review of Systems Vital Signs Vitals Vital Signs Date Temp Pulse Resp B/P (MAP) Pulse Ox O2 O2 Flow FiO2 Time Delivery Rate 05/21/19 Room Air 12:11 05/21/19 98.0 52 16 125/70 98 11:04 (88) Intake and Output 05/20/19 05/20/19 05/21/19 1515:00 23:00 07:00 IntakeIntake Total 240 ml 1400 ml BalanceBalance 240 ml 1400 ml Exam Constitutional: alert, oriented (No apparent distress) Head: normocephalic Respiratory: clear to auscultation, normal air movement Cardiovascular: regular rate and rhythm (S1-S2 heard) Gastrointestinal: soft, bowel sounds, other (Mild discomfort with palpation, no guarding) Extremities: other (No edema) Labs Result Diagram: 05/21/19 0520 05/21/19 0521 Results 24hrs Laboratory Tests Test 05/20/19 12:46 05/20/19 12:47 05/21/19 05:20 05/21/19 05:21 Prothrombin Time 12.6 Prothrombin Time Ratio 1.0 INR International 0.93 Normalized Ratio Activated 36.1 H Partial Thromboplast Time White Blood Count 12.0 #H 9.6 Red Blood Count 4.39 L 3.87 L Hemoglobin 12.6 L 11.1 L Hematocrit 38.7 L 34.8 L Mean Corpuscular Volume 88.2 89.9 Mean Corpuscular 28.7 L 28.7 L Hemoglobin Mean Corpuscular 32.6 31.9 L Hemoglobin Concent Red Cell Distribution 17.5 H 18.0 H Width Platelet Count 367 344 Mean Platelet Volume 9.4 10.2 Immature Granulocytes % 0.500 H 0.300 Neutrophils % 89.0 H 78.5 H Lymphocytes % 5.7 L 11.3 L Monocytes % 4.2 8.6 Eosinophils % 0.3 0.9 Basophils % 0.3 0.4 Nucleated Red Blood 0.0 0.0 Cells % Immature Granulocytes # 0.060 H 0.030 Neutrophils # 10.7 H 7.5 Lymphocytes # 0.7 L 1.1 Monocytes # 0.5 0.8 Eosinophils # 0.0 0.1 Basophils # 0.0 0.0 Nucleated Red Blood 0.0 0.0 Cells # Sodium Level 142 142 Potassium Level 3.7 4.0 Chloride Level 108 106 Carbon Dioxide Level 24 28 Anion Gap 10 8 Blood Urea Nitrogen 12 10 Creatinine 0.69 0.64 Est Glomerular Filtrat > 60 > 60 Rate mL/min Glucose Level 134 103 Calcium Level 9.7 9.0 Total Bilirubin 0.5 0.5 Direct Bilirubin 0.00 0.00 Indirect Bilirubin 0.5 0.5 Aspartate Amino 22 22 Transf (AST/SGOT) Alanine 17 24 Aminotransferase (ALT/SG PT) Alkaline Phosphatase 138 H 106 Total Protein 7.5 6.6 Albumin 4.4 3.5 Globulin 3.10 3.10 Albumin/Globulin Ratio 1.41 1.12 Amylase Level 57 Lipase 28 Hemoglobin A1c 4.7 Magnesium Level 1.8 Triglycerides Level 87 Cholesterol Level 105 LDL Cholesterol, 64 Calculated HDL Cholesterol 24 L Cholesterol/HDL Ratio 4.3 Thyroid Stimulating 1.260 Hormone (TSH) Imaging Imaging ECG demonstrates sinus bradycardia at 47 bpm, QRS 95 ms, no significant ischemic ST abnormalities Telemetry reviewed with heart rates in the 40s to 60s in sinus. There was a brief episode of junctional bradycardia in the 40s Medications Medications Current Medications Sodium Chloride 1,000 ml @ 70 mls/hr [id number] IV Last administered on 05/21/19at 08:58; Admin Dose 70 MLS/HR; Start 05/20/19 at 16:21 IV Flush (NS 3 ml) 3 ml PER PROTOCOL IV ; Start 05/20/19 at 16:30 Ondansetron HCl (Zofran Inj) 4 mg Q6H PRN IV NAUSEA/VOMITING Last administered on 05/21/19at 10:56; Admin Dose 4 MG; Start 05/20/19 at 16:30 Acetaminophen (Tylenol Tab) 650 mg Q6H PRN PO .PAIN 1-3 OR TEMP; Start 05/20/19 at 16:30 Oxycodone/ Acetaminophen (Percocet (5/ 325)) 1 tab Q6H PRN PO .PAINS 4-6; Start 05/20/19 at 16:30 Magnesium Hydroxide (Milk Of Mag) 30 ml DAILY PRN PO .CONSTIPATION; Start 05/20/19 at 16:30 Bisacodyl (Dulcolax) 5 mg DAILY PRN PO .CONSTIPATION; Start 05/20/19 at 16:30 Pantoprazole (Protonix Iv) 40 mg DAILY@06 IV Last administered on 05/21/19at 06:23; Admin Dose 40 MG; Start 05/21/19 at 06:00 Scopolamine (Transderm-Scop) 1 patch Q72H TRANSDERM Last administered on 05/20/19at 21:44; Admin Dose 1 PATCH; Start 05/20/19 at 17:30 Dronabinol (Marinol) 5 mg BID PO Last administered on 05/21/19 08:57; Admin Dose 5 MG; Start 05/20/19 at 21:00 Hydralazine HCl (Apresoline) 10 mg Q4H PRN IV sbp >160 Last administered on 05/20/19at 17:55; Admin Dose 10 MG; Start 05/20/19 at 17:30 Hydromorphone HCl (Dilaudid) 2 mg Q2H PRN IV .PAIN 7-10 Last administered on 05/21/19at 10:57; Admin Dose 2 MG; Start 05/20/19 at 19:00 Metoclopramide HCl (Reglan) 10 mg Q6H PRN IV NAUSEA AND/OR VOMITING Last administered on 05/21/19at 08:58; Admin Dose 10 MG; Start 05/20/19 at 20:00; Stop 05/21/19 at 20:00 Malcom Ramirez DO May 21, 2019 12:45
--- NOTE | 2019-05-21 15:11 | PN ---
Date/Time of Note Date/Time of Note DATE: 05/21/19 TIME: 14:55 Assessment/Plan VTE Prophylaxis Risk score (from Nsg)>0 risk: 3 SCD applied (from Nsg): Yes Pharmacological prophylaxis: LMWH Lines/Catheters IV Catheter Type (from Nrsg): Saline Lock Assessment/Plan Assessment/Plan 1. Intractable nausea and vomiting, improving, continue treatment 2. Abdominal pain, chronic, on dilaudid, norco for pain control, less pain today 3. History of rectal cancer, status post resection/chemotherapy/radiation, follow up with [facility] oncology 4. DVT prophylaxis: lovenox Result Diagram: 05/21/19 0520 05/21/19 0521 Results 24hrs Laboratory Tests Test 05/21/19 05:20 05/21/19 05:21 White Blood Count 9.6 Red Blood Count 3.87 L Hemoglobin 11.1 L Hematocrit 34.8 L Mean Corpuscular Volume 89.9 Mean Corpuscular Hemoglobin 28.7 L Mean Corpuscular Hemoglobin Concent 31.9 L Red Cell Distribution Width 18.0 H Platelet Count 344 Mean Platelet Volume 10.2 Immature Granulocytes % 0.300 Neutrophils % 78.5 H Lymphocytes % 11.3 L Monocytes % 8.6 Eosinophils % 0.9 Basophils % 0.4 Nucleated Red Blood Cells % 0.0 Immature Granulocytes # 0.030 Neutrophils # 7.5 Lymphocytes # 1.1 Monocytes # 0.8 Eosinophils # 0.1 Basophils # 0.0 Nucleated Red Blood Cells # 0.0 Hemoglobin A1c 4.7 Sodium Level 142 Potassium Level 4.0 Chloride Level 106 Carbon Dioxide Level 28 Anion Gap 8 Blood Urea Nitrogen 10 Creatinine 0.64 Est Glomerular Filtrat Rate mL/min > 60 Glucose Level 103 Calcium Level 9.0 Magnesium Level 1.8 Total Bilirubin 0.5 Direct Bilirubin 0.00 Indirect Bilirubin 0.5 Aspartate Amino Transf (AST/SGOT) 22 Alanine Aminotransferase (ALT/SGPT) 24 Alkaline Phosphatase 106 Total Protein 6.6 Albumin 3.5 Globulin 3.10 Albumin/Globulin Ratio 1.12 Triglycerides Level 87 Cholesterol Level 105 LDL Cholesterol, Calculated 64 HDL Cholesterol 24 L Cholesterol/HDL Ratio 4.3 Thyroid Stimulating Hormone (TSH) 1.260 Exam/Review of Systems Exam Vitals Vital Signs Date Temp Pulse Resp B/P (MAP) Pulse Ox O2 O2 Flow FiO2 Time Delivery Rate 05/21/19 Room Air 12:11 05/21/19 98.0 52 16 125/70 98 11:04 (88) Intake and Output 05/20/19 05/20/19 05/21/19 1414:59 22:59 06:59 IntakeIntake Total 240 ml 1400 ml BalanceBalance 240 ml 1400 ml Constitutional: alert, oriented, well developed Head: normocephalic, atraumatic Eyes: nl conjunctiva, EOMI, nl lids, PERRL ENMT: nl external ears & nose, nl lips & teeth, nl nasal mucosa & septum, m ucosa pink and moist Neck: supple, non-tender Respiratory: clear to auscultation, normal air movement; No congested cough, No crackles/rales, No diminished breath sounds, No intercostal retraction, No labored breathing, No respirations, No tactile fremit us, No wheezing, No other Cardiovascular: regular rate and rhythm, nl pulses; No bruits, No diastolic murmur, No edema, No gallop, No irregular rhythm, No jugular venous distention (JVD), No murmurs/extra sounds, No rub, No systolic murmur, No S3, No S4, No other Gastrointestinal: soft, nl liver, spleen, bowel sounds, tender (left lower abdominal tenderness) Musculoskeletal: nl extremities to inspection Extremities: normal pulses; No calf tenderness, No cyanosis, No clubbing, No edema, No pitting pedal edema, No palpable cord, No tenderness, No other 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: [employer] II-XII intact, nl mental status, nl speech, nl strength Results Results 24hrs Laboratory Tests Test 05/21/19 05:20 05/21/19 05:21 White Blood Count 9.6 Red Blood Count 3.87 L Hemoglobin 11.1 L Hematocrit 34.8 L Mean Corpuscular Volume 89.9 Mean Corpuscular Hemoglobin 28.7 L Mean Corpuscular Hemoglobin Concent 31.9 L Red Cell Distribution Width 18.0 H Platelet Count 344 Mean Platelet Volume 10.2 Immature Granulocytes % 0.300 Neutrophils % 78.5 H Lymphocytes % 11.3 L Monocytes % 8.6 Eosinophils % 0.9 Basophils % 0.4 Nucleated Red Blood Cells % 0.0 Immature Granulocytes # 0.030 Neutrophils # 7.5 Lymphocytes # 1.1 Monocytes # 0.8 Eosinophils # 0.1 Basophils # 0.0 Nucleated Red Blood Cells # 0.0 Hemoglobin A1c 4.7 Sodium Level 142 Potassium Level 4.0 Chloride Level 106 Carbon Dioxide Level 28 Anion Gap 8 Blood Urea Nitrogen 10 Creatinine 0.64 Est Glomerular Filtrat Rate mL/min > 60 Glucose Level 103 Calcium Level 9.0 Magnesium Level 1.8 Total Bilirubin 0.5 Direct Bilirubin 0.00 Indirect Bilirubin 0.5 Aspartate Amino Transf (AST/SGOT) 22 Alanine Aminotransferase (ALT/SGPT) 24 Alkaline Phosphatase 106 Total Protein 6.6 Albumin 3.5 Globulin 3.10 Albumin/Globulin Ratio 1.12 Triglycerides Level 87 Cholesterol Level 105 LDL Cholesterol, Calculated 64 HDL Cholesterol 24 L Cholesterol/HDL Ratio 4.3 Thyroid Stimulating Hormone (TSH) 1.260 Medications Medication Current Medications Sodium Chloride 1,000 ml @ 70 mls/hr [id number] IV Last administered on 05/21/19at 08:58; Admin Dose 70 MLS/HR; Start 05/20/19 at 16:21 IV Flush (NS 3 ml) 3 ml PER PROTOCOL IV ; Start 05/20/19 at 16:30 Ondansetron HCl (Zofran Inj) 4 mg Q6H PRN IV NAUSEA/VOMITING Last administered on 05/21/19at 10:56; Admin Dose 4 MG; Start 05/20/19 at 16:30 Acetaminophen (Tylenol Tab) 650 mg Q6H PRN PO .PAIN 1-3 OR TEMP; Start 05/20/19 at 16:30 Oxycodone/ Acetaminophen (Percocet (5/ 325)) 1 tab Q6H PRN PO .PAINS 4-6; Start 05/20/19 at 16:30 Magnesium Hydroxide (Milk Of Mag) 30 ml DAILY PRN PO .CONSTIPATION; Start 05/20/19 at 16:30 Bisacodyl (Dulcolax) 5 mg DAILY PRN PO .CONSTIPATION; Start 05/20/19 at 16:30 Pantoprazole (Protonix Iv) 40 mg DAILY@06 IV Last administered on 05/21/19at 06:23; Admin Dose 40 MG; Start 05/21/19 at 06:00 Scopolamine (Transderm-Scop) 1 patch Q72H TRANSDERM Last administered on 05/20/19at 21:44; Admin Dose 1 PATCH; Start 05/20/19 at 17:30 Dronabinol (Marinol) 5 mg BID PO Last administered on 05/21/19 08:57; Admin Dose 5 MG; Start 05/20/19 at 21:00 Hydralazine HCl (Apresoline) 10 mg Q4H PRN IV sbp >160 Last administered on 05/20/19 17:55; Admin Dose 10 MG; Start 05/20/19 at 17:30 Hydromorphone HCl (Dilaudid) 2 mg Q2H PRN IV .PAIN 7-10 Last administered on 05/21/19 13:01; Admin Dose 2 MG; Start 05/20/19 at 19:00 Metoclopramide HCl (Reglan) 10 mg Q6H PRN IV NAUSEA AND/OR VOMITING Last administered on 05/21/19 08:58; Admin Dose 10 MG; Start 05/20/19 at 20:00; Stop 05/21/19 at 20:00 LORELEI NARVAEZ MD May 21, 2019 15:05
[2019-05-21] MEDS: ENOXAPARIN 40 MG/0.4 ML SYG SC SCH (15:30)
--- NOTE | 2019-05-21 15:45 | RADRPT ---
Echocardiogram Report Patient Name: Clemente SHETH ID: [id number] : 1975 (43y 7m)Study Date: 05/21/2019 10:13:08 AM Gender: MAccession #: [id number] Tech: Nirav [facility] Location: [address] Ref.Physician: JAMES BEACH Height(Cm): BSA: Weight(Kg): Quality: AdequateOrder Physician: JAMES BEACH Account #: Procedures: Echocardiographic Report: Transthoracic echocardiogram with complete 2D, M-Mode, and doppler examination. Indications: Bradycardia. Measurements: 2D/M Mode Doppler Measurement Value Normal Range Measurement Value Normal Range LVIDd 2D 4.9 [ 4.2 - 5.8 ] cm AV Peak Miles 1.4 [ 100.0 - 170.0 ] cm/sec LVIDs 2D 3.1 [ 2.5 - 4.0 ] cm AV Peak PG 8.0 [ 2.0 - 9.0 ] mmHg LVPWd 2D 0.8 [ 0.6 - 1.0 ] cm LVOT Peak Miles 1.0 [ 70.0 - 110.0 ] cm/sec IVSd 2D 0.8 [ 0.6 - 1.0 ] cm LVOT Peak PG 4.0 [ 2.0 - 6.0 ] mmHg AoR Diam 2D 2.8 [ 2.6 - 3.4 ] cm MV E Peak Miles 1.0 [ 60.0 - 130.0 ] cm/sec EDV 2D 114.0 [ 62.0 - 150.0 ] ml MV A Peak Miles 0.5 [ 100.0 - 120.0 ] cm/sec ESV 2D 38.2 [ 21.0 - 61.0 ] ml MV E/A 2.0 [ 0.8 - 1.5 ] ratio EF 2D 66.5 [ 52.0 - 72.0 ] percent MV Decel Time 257 [ 104 - 258 ] msec LA Dimen 2D 3.4 [ 3.0 - 4.0 ] cm Lat E` Miles 0.2 [ 10.0 - 15.0 ] cm/sec Lateral E/E` 5.7 [ 1.0 - 2.0 ] ratio Med E` Miles 0.2 cm/sec MV E/A 2.0 [ 0.8 - 1.5 ] ratio TR Peak Miles 3.1 [ 100.0 - 280.0 ] cm/sec TR Peak PG 39.0 mmHg RVSP 47.0 [ 10.0 - 36.0 ] mmHg Findings: Left Ventricle: Normal left ventricular systolic function. Normal left ventricular cavity size. Normal left ventricular wall thickness. Ejection fraction is visually estimated at 60 %. Right Ventricle: Normal right ventricular size. Normal right ventricular systolic function. Left Atrium: The left atrium is normal in size. Right Atrium: The right atrium is normal in size. Mitral Valve: Mild mitral leaflet calcification. Mild mitral annular calcification. Trace mitral regurgitation. Aortic Valve: No significant aortic stenosis or insufficiency. Aortic cusps appear mildly calcified. Tricuspid Valve: Normal appearance of the tricuspid valve. The estimated Peak RVSP is 47 mmHg. There is mild tricuspid regurgitation. Pericardium: Normal pericardium with no significant pericardial effusion. Aorta: Normal aortic root. IVC: Normal size with poor respiratory collapse consistent with elevated right atrial pressure. Conclusions: Normal left ventricular systolic function. Normal left ventricular cavity size. Normal left ventricular wall thickness. Ejection fraction is visually estimated at 60 %. Normal right ventricular size. Normal right ventricular systolic function. Normal appearance of the tricuspid valve. The estimated Peak RVSP is 47 mmHg. There is mild tricuspid regurgitation. No significant valvular stenosis or regurgitation seen of remaining visualized valves. Normal pericardium with no significant pericardial effusion. Electronically Signed By: Malcom Ramirez 2019-05-21 15:44:13 PDT
--- NOTE | 2019-05-21 15:54 | RADRPT ---
Vent Rate: 47 bpm RR Interval: 1268 msec NH Interval: 138 msec QRS Duration: 95 msec QT Interval: 442 msec QTC Interval: 393 msec P-R-T [place]: 81 - 80 - 54 degrees Sinus bradycardia...rate< 50 Electronically Signed By: Malcom Ramirez
[2019-05-21] MEDS: DOCUSATE SODIUM 100 MG CAP PO SCH (17:05)
[2019-05-22] MEDS: HYDROmorphONE 2 MG/ML SYG IV PRN ×7 (01:13→13:17)
[2019-05-22] MEDS: PANTOPRAZOLE 40 MG INJ IV SCH (05:13)
[2019-05-22 05:19] VITALS: BP 125/74; PULSE 56; RESP 19
[2019-05-22 07:32] VITALS: BP 109/55; PULSE 49; RESP 18
[2019-05-22] MEDS: DOCUSATE SODIUM 100 MG CAP PO SCH (08:11)
[2019-05-22] MEDS: DRONABINOL 2.5 MG CAP PO SCH (08:11)
[2019-05-22] MEDS: ENOXAPARIN 40 MG/0.4 ML SYG SC SCH (08:12)
[2019-05-22 11:02] VITALS: BP 123/68; PULSE 49; RESP 18
--- NOTE | 2019-05-22 11:35 | PDOCDIS ---
Discharge Instructions DIAGNOSIS Discharge Diagnosis Intractable cancer-related nausea and vomiting CONDITION [id number] Patient Condition: [id number] Fair HOME CARE INSTRUCTIONS: [id number] Diet Instructions: [id number] Regular ACTIVITY: [id number] Activity Restrictions: [id number] No Restrictions FOLLOW UP/APPOINTMENTS Follow-up Plan 1. Continue to take all medications as prescribed. 2. Follow up with your oncologist or [facility]. 3. Return to the emergency room if you develop intractable nausea that does not respond to zofran; or intractable pain that does not respond to your home medications. MITCHEL PFEIFFER MD May 22, 2019 11:35
--- NOTE | 2019-05-22 13:58 | CONS ---
Assessment/Plan Assessment/Plan Assessment/Plan (Daily) Bradycardia in the setting of recurrent nausea and vomiting Recurrent nausea and vomiting concerning for cyclic vomiting syndrome Rectal cancer Chronic marijuana use Patient with bradycardia in the setting of nausea and recurrent vomiting and with pain meds Telemetry reviewed with sinus bradycardia 40s to 60s with brief junctional bradycardia. Patient denies any symptoms of dizziness or lightheadedness This is likely secondary to vagal response of recurrent vomiting. Heart rate currently in the 60s patient denies any history of lightheadedness or dizziness Consultation Date/Type/Reason Admit Date/Time May 20, 2019 at 16:32 Initial Consult Date 05/21/19 Type of Consult Cardiology Requesting Provider: JAMES BEACH Date/Time of Note DATE: 05/22/19 TIME: 13:57 24 HR Interval Summary Free Text/Dictation the aptient with no change Exam/Review of Systems Vital Signs Vitals Vital Signs Date Temp Pulse Resp B/P (MAP) Pulse Ox O2 O2 Flow FiO2 Time Delivery Rate 05/22/19 98.2 49 18 123/68 98 Room Air 11:02 (86) Intake and Output 05/21/19 05/21/19 05/22/19 1515:00 23:00 07:00 IntakeIntake Total 420 ml 1220 ml 1340 ml OutputOutput Total 200 ml BalanceBalance 420 ml 1020 ml 1340 ml Labs Result Diagram: 05/22/19 0544 05/22/19 0543 Results 24hrs Laboratory Tests Test 05/22/19 05:43 05/22/19 05:44 Sodium Level 140 Potassium Level 4.1 Chloride Level 106 Carbon Dioxide Level 27 Anion Gap 7 Blood Urea Nitrogen 9 Creatinine 0.83 Est Glomerular Filtrat Rate mL/min > 60 Glucose Level 104 Calcium Level 8.8 White Blood Count 10.6 Red Blood Count 3.83 L Hemoglobin 10.9 L Hematocrit 35.1 L Mean Corpuscular Volume 91.6 Mean Corpuscular Hemoglobin 28.5 L Mean Corpuscular Hemoglobin Concent 31.1 L Red Cell Distribution Width 17.5 H Platelet Count 252 # Mean Platelet Volume 10.0 Immature Granulocytes % 0.500 H Neutrophils % 81.3 H Lymphocytes % 9.8 L Monocytes % 6.4 Eosinophils % 1.6 Basophils % 0.4 Nucleated Red Blood Cells % 0.0 Immature Granulocytes # 0.050 H Neutrophils # 8.6 H Lymphocytes # 1.0 Monocytes # 0.7 Eosinophils # 0.2 Basophils # 0.0 Nucleated Red Blood Cells # 0.0 Medications Medications Current Medications Sodium Chloride 1,000 ml @ 70 mls/hr [id number] IV Last administered on 05/21/19 23:17; Admin Dose 70 MLS/HR; Start 05/20/19 at 16:21 IV Flush (NS 3 ml) 3 ml PER PROTOCOL IV ; Start 05/20/19 at 16:30 Ondansetron HCl (Zofran Inj) 4 mg Q6H PRN IV NAUSEA/VOMITING Last administered on 05/21/19 10:56; Admin Dose 4 MG; Start 05/20/19 at 16:30 Acetaminophen (Tylenol Tab) 650 mg Q6H PRN PO .PAIN 1-3 OR TEMP; Start 05/20/19 at 16:30 Oxycodone/ Acetaminophen (Percocet (5/ 325)) 1 tab Q6H PRN PO .PAINS 4-6; Start 05/20/19 at 16:30 Magnesium Hydroxide (Milk Of Mag) 30 ml DAILY PRN PO .CONSTIPATION; Start 05/20/19 at 16:30 Bisacodyl (Dulcolax) 5 mg DAILY PRN PO .CONSTIPATION; Start 05/20/19 at 16:30 Pantoprazole (Protonix Iv) 40 mg DAILY@06 IV Last administered on 05/22/19at 05:13; Admin Dose 40 MG; Start 05/21/19 at 06:00 Scopolamine (Transderm-Scop) 1 patch Q72H TRANSDERM Last administered on 05/20/19at 21:44; Admin Dose 1 PATCH; Start 05/20/19 at 17:30 Dronabinol (Marinol) 5 mg BID PO Last administered on 05/22/19 08:11; Admin Dose 5 MG; Start 05/20/19 at 21:00 Hydralazine HCl (Apresoline) 10 mg Q4H PRN IV sbp >160 Last administered on 05/20/19 17:55; Admin Dose 10 MG; Start 05/20/19 at 17:30 Hydromorphone HCl (Dilaudid) 2 mg Q2H PRN IV .PAIN 7-10 Last administered on 05/22/19 13:17; Admin Dose 2 MG; Start 05/20/19 at 19:00 Docusate Sodium (Colace) 100 mg DAILY PO Last administered on 05/22/19at 08:11; Admin Dose 100 MG; Start 05/21/19 at 15:30 Enoxaparin Sodium (Lovenox) 40 mg DAILY SC ; Start 05/21/19 at 15:30 FANTASMA CHANEY MD May 22, 2019 13:58
--- NOTE | 2019-05-22 14:12 | CONS ---
Assessment/Plan Assessment/Plan Assessment/Plan (Daily) #rectal ca, MSI stable, T3 lesion with perirectal LAD -s/p Xeloda 1500 mg p.o. b.i.d. with radiation . s/p 6 week course completed -04/13/[address] reveals perisistant rectal thickening likely related to post radiation disease. -04/21/19 Scope could not be advanced through during colonoscopy, but gastric biopsy from endoscopy and rectal biopsy showed no evidence of malignancy. Stricture is highly likely from radiation tx received. Patient saw colorectal surgeon and repeat bx also demonstrated no evidence of disease -given that patient has persistent nausea, abdominal pain, and difficulty with BM's we would like to refer the patient to [facility] oncology and [facility] oncology to obtain a second opinion on his case. We have done repeated scans, and procedures and tried many different medications which have not appeared to control his symptoms. He has repeated hospital admissions for the same complaints and it is now beyond my scope of expertise. #Nausea -continues to c/o uncontrolled nausea even with zofran, compazine, ativan, and reglan. will prescribe Dronabinol 5 mg PO BID today to see if that will curb the nausea and explained to patient that it has no relation to his rectal stricture or obstruction as patient said his constipation is relieved. #Abdominal pain -MRI pelvis done 03/2019 showed presacral soft tissue mass suggestive of post surgical, post radiation changes with chronic post infectious changes. -on Dialudid, norco. -will MS Contin to 60 mg BID #Anxiety -refill for Ativan 1 mg PO q6h #Nephrolithiasis and hydronephrosis -s/p lithotripsy. -stent removal of stent #Bladder tumor -this appeared to be a superficial bladder tumor -pathology did not reveal evidence of malignancy Patient seen in collaboration with dr Mccoy Consultation Date/Type/Reason Admit Date/Time May 20, 2019 at 16:32 Initial Consult Date 05/21/19 Type of Consult HEM/ ONC Reason for Consultation Rectal Ca Requesting Provider: JAMES BEACH Date/Time of Note DATE: 05/22/19 TIME: 14:11 Detailed Summary Eyes: no complaints ENT: no complaints Respiratory: no complaints Cardiovascular: no complaints Gastrointestinal: nausea Genitourinary: no complaints Musculoskeletal: other (general weakness) Skin: no complaints Neurologic: no complaints Endocrine: no complaints Lymphatic: no complaints Psychological: nl mood/affect Immunologic: no complaints Exam/Review of Systems Exam Vitals Vital Signs Date Temp Pulse Resp B/P (MAP) Pulse Ox O2 O2 Flow FiO2 Time Delivery Rate 05/22/19 98.2 49 18 123/68 98 Room Air 11:02 (86) Intake and Output 05/21/19 05/21/19 05/22/19 1515:00 23:00 07:00 IntakeIntake Total 420 ml 1220 ml 1340 ml OutputOutput Total 200 ml BalanceBalance 420 ml 1020 ml 1340 ml Results Result Diagram: 05/22/19 0544 05/22/19 0543 Results 24hrs Laboratory Tests Test 05/22/19 05:43 05/22/19 05:44 Sodium Level 140 Potassium Level 4.1 Chloride Level 106 Carbon Dioxide Level 27 Anion Gap 7 Blood Urea Nitrogen 9 Creatinine 0.83 Est Glomerular Filtrat Rate mL/min > 60 Glucose Level 104 Calcium Level 8.8 White Blood Count 10.6 Red Blood Count 3.83 L Hemoglobin 10.9 L Hematocrit 35.1 L Mean Corpuscular Volume 91.6 Mean Corpuscular Hemoglobin 28.5 L Mean Corpuscular Hemoglobin Concent 31.1 L Red Cell Distribution Width 17.5 H Platelet Count 252 # Mean Platelet Volume 10.0 Immature Granulocytes % 0.500 H Neutrophils % 81.3 H Lymphocytes % 9.8 L Monocytes % 6.4 Eosinophils % 1.6 Basophils % 0.4 Nucleated Red Blood Cells % 0.0 Immature Granulocytes # 0.050 H Neutrophils # 8.6 H Lymphocytes # 1.0 Monocytes # 0.7 Eosinophils # 0.2 Basophils # 0.0 Nucleated Red Blood Cells # 0.0 Medications Medication Current Medications Sodium Chloride 1,000 ml @ 70 mls/hr [id number] IV Last administered on 05/21/19at 23:17; Admin Dose 70 MLS/HR; Start 05/20/19 at 16:21 IV Flush (NS 3 ml) 3 ml PER PROTOCOL IV ; Start 05/20/19 at 16:30 Ondansetron HCl (Zofran Inj) 4 mg Q6H PRN IV NAUSEA/VOMITING Last administered on 05/21/19at 10:56; Admin Dose 4 MG; Start 05/20/19 at 16:30 Acetaminophen (Tylenol Tab) 650 mg Q6H PRN PO .PAIN 1-3 OR TEMP; Start 05/20/19 at 16:30 Oxycodone/ Acetaminophen (Percocet (5/ 325)) 1 tab Q6H PRN PO .PAINS 4-6; Start 05/20/19 at 16:30 Magnesium Hydroxide (Milk Of Mag) 30 ml DAILY PRN PO .CONSTIPATION; Start at 16:30 Bisacodyl (Dulcolax) 5 mg DAILY PRN PO .CONSTIPATION; Start 05/20/19 at 16:30 Pantoprazole (Protonix Iv) 40 mg DAILY@06 IV Last administered on 05/22/19at 05:13; Admin Dose 40 MG; Start 05/21/19 at 06:00 Scopolamine (Transderm-Scop) 1 patch Q72H TRANSDERM Last administered on 05/20/19at 21:44; Admin Dose 1 PATCH; Start 05/20/19 at 17:30 Dronabinol (Marinol) 5 mg BID PO Last administered on 05/22/19at 08:11; Admin Dose 5 MG; Start 05/20/19 at 21:00 Hydralazine HCl (Apresoline) 10 mg Q4H PRN IV sbp >160 Last administered on 05/20/19at 17:55; Admin Dose 10 MG; Start 05/20/19 at 17:30 Hydromorphone HCl (Dilaudid) 2 mg Q2H PRN IV .PAIN 7-10 Last administered on 05/22/19at 13:17; Admin Dose 2 MG; Start 05/20/19 at 19:00 Docusate Sodium (Colace) 100 mg DAILY PO Last administered on 05/22/19at 08:11; Admin Dose 100 MG; Start 05/21/19 at 15:30 Enoxaparin Sodium (Lovenox) 40 mg DAILY SC ; Start 05/21/19 at 15:30 TAPAN MCCARTHY May 22, 2019 14:12
--- NOTE | 2019-05-22 16:27 | DS ---
Date/Time of Note Date/Time of Note DATE: 05/22/19 TIME: 16:21 Discharge Summary Admission/Discharge Info Admit Date/Time May 20, 2019 at 16:32 Discharge Date/Time May 22, 2019 at 14:00 Discharge Diagnosis Intractable cancer-related nausea and vomiting Patient Condition: Fair Hx of Present Illness Patient is a male with a past medical history significant for rectal carcinoma status post resection, currently in remission and off of chemotherapy, last PET scan done 3 weeks ago who presents to [facility] for intractable nausea and vomiting. Patient is well-known to the service and is routinely in the emergency room for persistent nausea and vomiting that originated when he first was diagnosed with colon cancer. Patient states that he has chronic abdominal pain and cramping and that currently the abdominal pain is not acute and unchanged from his baseline. Patient's current complaint is his worsening nausea and vomiting, patient states that he does not necessarily know what triggered it except for some episodes of constipation likely related to his pain medication. Other than his nausea vomiting, patient denies any other symptoms that are new. Patient states that as recent as 3 weeks ago he was hospitalized and a upper endoscopy, MRI, CT, PET scan was done and also a recent colonoscopy was done with biopsy of a possible mass in his rectum that did not show as cancer. Patient currently denies chest pain, shortness of breath, headache, leg pain. Hospital Course The patient was treated with zofran for nausea and vomiting. Symptoms eventually resolved. He actually is on very high dose MS Contin 60mg BID at home for cancer-related pain, which was not continued at the hospital. After vomiting resolved and he was tolerating diet he requested discharge home. Home Meds Active Scripts Pantoprazole* (Protonix*) 40 Mg Tablet.dr, 40 MG PO AC BREAKFAST, #30 TAB Prov:GEMMA JENKINS [employer] 01/26/19 Reported Medications Lorazepam* (Ativan*) 2 Mg Tablet, 2 MG PO DAILY PRN for ANXIETY, #30 TAB 05/21/19 Hydromorphone Hcl* (Dilaudid*) 2 Mg Tablet, 8 MG PO Q2H PRN for PAIN LEVEL 7-10, TAB 02/09/19 Hydrocodone/Acetaminophen (Hydrocodone-Acetamin 10-325 mg) 1 Each Tablet, 1 TAB ORAL Q4 PRN for PAIN LEVEL 6-10 01/25/19 Discontinued Reported Medications [Pantoprazole] No Conflict Check 04/21/19 [Antibiotics X2] No Conflict Check 04/21/19 Follow-up Plan 1. Continue to take all medications as prescribed. 2. Follow up with your oncologist or [facility]. 3. Return to the emergency room if you develop intractable nausea that does not respond to zofran; or intractable pain that does not respond to your home medications. Primary Care Provider Not On Staff Doctor Time spent on discharge: > 30 minutes Pending Labs Laboratory Tests Test 05/22/19 05:43 05/22/19 05:44 Sodium Level 140 mmol/L (135-144) Potassium Level 4.1 mmol/L (3.5-5.1) Chloride Level 106 mmol/L (97-110) Carbon Dioxide Level 27 mmol/L (21-31) Anion Gap 7 (5-13) Blood Urea Nitrogen 9 mg/dl (7-20) Creatinine 0.83 mg/dl (0.61-1.24) Est Glomerular Filtrat > 60 mL/min (>60) Rate mL/min Glucose Level 104 mg/dl (70-220) Calcium Level 8.8 mg/dl (8.4-10.2) White Blood Count 10.6 10^3/ul (4.8-10.8) Red Blood Count 3.83 10^6/ul (4.70-6.10) Hemoglobin 10.9 g/dl (14.0-18.0) Hematocrit 35.1 % (42.0-52.0) Mean Corpuscular Volume 91.6 fl (82.0-101.0) Mean Corpuscular Hemoglobin 28.5 pg (29.0-33.0) Mean Corpuscular 31.1 g/dl (32.0-37.0) Hemoglobin Concent Red Cell Distribution Width 17.5 % (11.5-14.5) Platelet Count 252 10^3/UL (140-415) Mean Platelet Volume 10.0 fl (7.4-10.4) Immature Granulocytes % 0.500 % (0.001-0.429) Neutrophils % 81.3 % (39.0-77.0) Lymphocytes % 9.8 % (15.0-51.0) Monocytes % 6.4 % (0.0-11.0) Eosinophils % 1.6 % (0.0-7.0) Basophils % 0.4 % (0.0-2.0) Nucleated Red Blood Cells % 0.0 /100WBC (0.0-0.0) Immature Granulocytes # 0.050 10^3/ul (0.0-0.031) Neutrophils # 8.6 10^3/ul (1.6-7.5) Lymphocytes # 1.0 10^3/ul (0.8-2.9) Monocytes # 0.7 10^3/ul (0.3-0.9) Eosinophils # 0.2 10^3/ul (0.0-0.5) Basophils # 0.0 10^3/ul (0.0-0.1) Nucleated Red Blood Cells # 0.0 10^3/ul (0.0-0.0) MITCHEL PFEIFFER MD May 22, 2019 16:27
== END 2019-05-22 14:00 | disposition home or self-care (01) ==
LOC: E/R 12:35 → PP2 16:32 → TEL 19:44
PROVIDERS: ADMIT Internal Medicine; ATTEND Internal Medicine
DX: R11.2 Nausea with vomiting, unspecified (principal); G89.29 Other chronic pain; R10.9 Unspecified abdominal pain; R00.1 Bradycardia, unspecified; F12.90 Cannabis use, unspecified, uncomplicated; F11.20 Opioid dependence, uncomplicated; F41.9 Anxiety disorder, unspecified; Z85.048 Personal history of other malignant neoplasm of rectum, rectosigmoid junction, and anus; Z92.21 Personal history of antineoplastic chemotherapy; Z92.3 Personal history of irradiation
CPT/HCPCS: 36415; 80048; 80053; 80061; 82150; 83036; 83690; 83735; 84443; 85025; 85610; 85730; 93005; 93306; 96374; 96375; 96376; C9113; J0360; J1170; J2405; J2765; J7030; Z7500; Z7502; Z7610; 99217; G0378

== ENCOUNTER 2019-05-27 14:37 | Emergency (ER) | payer OTHER ==
[~2019-05-27] VITALS: Ht 170.2 cm; Wt 75.0 kg
[~2019-05-27 14:37] MED LIST changes: -ANTIBIOTICS X2; -PANTOPRAZOLE
[2019-05-27] MEDS ORDERED: KETOROLAC 30 MG INJ IV STA (14:43)
[2019-05-27] MEDS ORDERED: ONDANSETRON 4 MG INJ IV STA (14:43)
[2019-05-27] MEDS ORDERED: SOD CHLORIDE 0.9% 1,000 ML IV STA (14:43)
[2019-05-27 14:49] VITALS: Ht 170.2 cm; Wt 75.0 kg
[2019-05-27] MEDS ORDERED: DIPHENHYDRAMINE 50 MG INJ IV ONE (15:00)
[2019-05-27] MEDS ORDERED: HALOPERIDOL 5 MG INJ IV ONE (15:00)
[2019-05-27 16:45] VITALS: BP 162/78; PULSE 84; RESP 18
--- NOTE | 2019-05-27 18:49 | ERD ---
ER Documentation Chief Complaint Chief Complaint AP SINCE YESTERDAY HPI Patient is a 43-year-old male with a history of abdominal pain and rectal cancer who presents with abdominal pain. The patient was brought in by ambulance. He came from home. He has abdominal pain, nausea, and vomiting. Is been worsening. He said that he tried Dilaudid and [place] at home. He is requesting IV Dilaudid. He says "I think it is a kidney stone". Upon review of old medical records the patient has multiple visits to the ER for various. Review of the emergency department information exchange system shows visits to 3 separate emergency departments for a total of 24 visits over the past 1 year. ROS All systems reviewed and are negative except as per history of present illness. Medications Home Meds Active Scripts Tamsulosin Hcl* (Flomax*) 0.4 Mg Cap.er.24h, 0.4 MG PO QPM, #30 CAP Prov:ZACK BLANCHARD MD 05/27/19 Ondansetron (Ondansetron Odt) 4 Mg Tab.rapdis, 4 MG PO Q6H PRN for NAUSEA AND/OR VOMITING, #10 TAB Prov:ZACK BLANCHARD MD 05/27/19 Ibuprofen* (Motrin*) 600 Mg Tab, 600 MG PO Q6H PRN for PAIN AND OR ELEVATED TEMP, #30 TAB Prov:ZACK BLANCHARD MD 05/27/19 Pantoprazole* (Protonix*) 40 Mg Tablet.dr, 40 MG PO AC BREAKFAST, #30 TAB Prov:GEMMA JENKINS NP 01/26/19 Reported Medications Lorazepam* (Ativan*) 2 Mg Tablet, 2 MG PO DAILY PRN for ANXIETY, #30 TAB 05/21/19 Hydromorphone Hcl* (Dilaudid*) 2 Mg Tablet, 8 MG PO Q2H PRN for PAIN LEVEL 7-10, TAB 02/09/19 Hydrocodone/Acetaminophen (Hydrocodone-Acetamin 10-325 mg) 1 Each Tablet, 1 TAB ORAL Q4 PRN for PAIN LEVEL 6-10 01/25/19 Discontinued Reported Medications [Pantoprazole] No Conflict Check 04/21/19 [Antibiotics X2] No Conflict Check 04/21/19 Allergies Allergies: Coded Allergies: No Known Allergy (Unverified , 05/27/19) PMhx/Soc History of Surgery: Yes (tumor rectal removal, ileostomy reversed; kidney stones) Anesthesia Reaction: No Hx 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 Disorder: No Hx Respiratory Disorders: No Hx Cardiac Disorders: No Hx Psychiatric Problems: No Hx Miscellaneous Medical Probl: No Hx Alcohol Use: No Hx Substance Use: Yes (marijuana (yesterday)) Hx Tobacco Use: No Smoking Status: Never smoker FmHx Family History: No diabetes Physical Exam Vitals Vital Signs Date Temp Pulse Resp B/P (MAP) Pulse Ox O2 O2 Flow FiO2 Time Delivery Rate 05/27/19 98.0 84 18 162/78 99 16:45 (106) 05/27/19 98.1 80 18 174/104 99 14:49 (127) Physical Exam Const: Moderate distress Head: Atraumatic Eyes: Normal Conjunctiva ENT: Normal External Ears, Nose and Mouth. Neck: Full range of motion. No meningismus. Resp: Clear to auscultation bilaterally Cardio: Regular rate and rhythm, no murmurs Abd: Diffuse tenderness to palpation without rebound or guarding Skin: No petechiae or rashes Back: No midline or flank tenderness Ext: No cyanosis, or edema Neur: Awake and alert Psych: Normal Mood and Affect Result Diagram: 05/27/19 1507 05/27/19 1507 Results 24 hrs Laboratory Tests Test 05/27/19 15:07 White Blood Count 13.4 10^3/ul Red Blood Count 4.34 10^6/ul Hemoglobin 12.4 g/dl Hematocrit 38.9 % Mean Corpuscular Volume 89.6 fl Mean Corpuscular Hemoglobin 28.6 pg Mean Corpuscular Hemoglobin Concent 31.9 g/dl Red Cell Distribution Width 17.4 % Platelet Count 221 10^3/UL Mean Platelet Volume 10.1 fl Immature Granulocytes % 0.400 % Neutrophils % 84.4 % Lymphocytes % 5.2 % Monocytes % 9.4 % Eosinophils % 0.4 % Basophils % 0.2 % Nucleated Red Blood Cells % 0.0 /100WBC Immature Granulocytes # 0.050 10^3/ul Neutrophils # 11.3 10^3/ul Lymphocytes # 0.7 10^3/ul Monocytes # 1.3 10^3/ul Eosinophils # 0.1 10^3/ul Basophils # 0.0 10^3/ul Nucleated Red Blood Cells # 0.0 10^3/ul Sodium Level 141 mmol/L Potassium Level 4.1 mmol/L Chloride Level 107 mmol/L Carbon Dioxide Level 23 mmol/L Anion Gap 11 Blood Urea Nitrogen 13 mg/dl Creatinine 0.72 mg/dl Est Glomerular Filtrat Rate mL/min > 60 mL/min Glucose Level 112 mg/dl Calcium Level 9.2 mg/dl Total Bilirubin 0.6 mg/dl Direct Bilirubin 0.00 mg/dl Indirect Bilirubin 0.6 mg/dl Aspartate Amino Transf (AST/SGOT) 18 IU/L Alanine Aminotransferase (ALT/SGPT) 18 IU/L Alkaline Phosphatase 112 IU/L Total Protein 7.5 g/dl Albumin 4.1 g/dl Globulin 3.40 g/dl Albumin/Globulin Ratio 1.20 Lipase 18 U/L Current Medications Medications Dose Sig/Devan Start Time Status Last (Trade) Ordered Route PRN Stop Time Admin Dose Reason Admin Sodium 1,000 ml @ Q1H STAT 05/27/19 DC 05/27/19 Chloride 1,000 mls/hr IV 14:43 05/27/19 15:05 15:42 Ondansetron 4 mg ONCE STAT 05/27/19 DC 05/27/19 HCl (Zofran IV 14:43 05/27/19 15:02 Inj) 14:45 Ketorolac 30 mg ONCE STAT 05/27/19 DC 05/27/19 Tromethamine IV 14:43 05/27/19 15:01 (Toradol) 14:45 Haloperidol 2.5 mg ONCE ONCE 05/27/19 DC 05/27/19 (Haldol) IV 15:00 05/27/19 15:02 15:01 25 mg ONCE ONCE 05/27/19 DC 05/27/19 Diphenhydrami IV 15:00 05/27/19 15:01 ne HCl 15:01 (Benadryl) Procedures/MDM CT abdomen pelvis shows 4 mm kidney stone with mild hydronephrosis per radiology. Patient is a 43-year-old male presents with abdominal pain and vomiting. Laboratory studies were basically normal. CT scan shows 4 mm kidney stone with hydronephrosis. I doubt infected kidney stone at this time. The patient feels better after treatment with Haldol, Zofran, Benadryl, and Toradol. The patient will be discharged home to follow-up with Dr. Tapia from urology for possible lithotripsy. The patient can return for any worsening symptoms. Departure Diagnosis: Primary Impression: Kidney stone Additional Impression: Abdominal pain Abdominal location: generalized Qualified Codes: R10.84 - Generalized abdominal pain Condition: Fair Patient Instructions: Kidney Stone W/ Colic Referrals: ERICA TAPIA MD Additional Instructions: SPECIALIST: YOU HAVE A MEDICAL CONDITION WHICH REQUIRES YOU TO SEE A SPECIALIST WITHIN THE NEXT 1-2 DAYS. PLEASE FOLLOW UP WITH YOUR PRIMARY PHYSICIAN FOR REFFERAL.IF YOU DO NOT HAVE A PRIMARY CARE PHYSICIAN AND/OR YOU CAN NOT AFFORD TO SEE A PHYSICIAN THE FOLLOWING RESOURCES HAVE BEEN SUPPLIED TO YOU. IT IS YOUR RESPONSIBILITY TO BE SEEN BY THE SPECIALIST ZACK BLANCHARD MD May 27, 2019 18:49
== END 2019-05-27 16:45 | disposition home or self-care (01) ==
LOC: E/R 14:37
DX: N20.0 Calculus of kidney (principal)
CPT/HCPCS: 36415; 74176; 80053; 83690; 85025; 96374; 96375; J1200; J1630; J1885; J2405; J7030; Z7502

== ENCOUNTER 2019-06-12 13:12 | Observation (INO) | payer OTHER ==
[~2019-06-12] VITALS: Ht 177.8 cm; Wt 68.3 kg
[2019-06-12] MEDS ORDERED: SOD CHLORIDE 0.9% 1,000 ML IV STA (13:19)
[2019-06-12] MEDS ORDERED: ONDANSETRON 4 MG INJ IV STA ×2 (13:19→16:31)
[2019-06-12] MEDS ORDERED: HYDROmorphONE 1 MG/ML SYG IV STA ×2 (13:19→16:31)
[2019-06-12] MEDS ORDERED: LORAZEPAM 2 MG INJ IV ONE (13:30)
[2019-06-12] MEDS ORDERED: HYDROmorphONE 2 MG/ML SYG IV STA (14:08)
[2019-06-12] MEDS ORDERED: ACETAMINOPHEN 325 MG TAB PO PRN (16:00)
[2019-06-12] MEDS ORDERED: ONDANSETRON 4 MG INJ IV PRN ×2 (16:00→17:30)
[2019-06-12] MEDS ORDERED: LORAZEPAM 1 MG TAB PO PRN (17:30)
[2019-06-12] MEDS ORDERED: IBUPROFEN 600 MG TAB PO PRN (17:30)
[2019-06-12] MEDS ORDERED: NICOTINE (21 MG/24 HR) PATCH TRANSDERM SCH (17:30)
[2019-06-12] MEDS ORDERED: NACL 0.9% 3 ML SYG IV SCH (17:30)
[2019-06-12] MEDS ORDERED: SENNA TAB PO PRN (17:30)
[2019-06-12] MEDS ORDERED: HYDROmorphONE 2 MG TAB PO PRN (17:30)
[2019-06-12] MEDS ORDERED: HYDROCODONE/APAP (10/325) TAB PO PRN (17:30)
[2019-06-12 18:09] VITALS: BP 135/78; PULSE 58; RESP 20
[2019-06-12] MEDS ORDERED: HYDROmorphONE 2 MG/ML SYG IV PRN ×2 (18:30→19:00)
[2019-06-12 19:09] VITALS: Ht 177.8 cm; Wt 68.3 kg
[2019-06-12 20:35] VITALS: BP 135/84; PULSE 77; RESP 18
[2019-06-12] MEDS ORDERED: METOCLOPRAMIDE 10 MG INJ IV ONE (21:00)
[2019-06-12] MEDS ORDERED: TAMSULOSIN (SR) 0.4 MG CAP PO SCH (21:00)
[2019-06-12] MEDS: HYDROmorphONE 2 MG/ML SYG IV PRN (21:22)
[2019-06-13] MEDS: HYDROmorphONE 2 MG/ML SYG IV PRN ×3 (00:24→06:40)
[2019-06-13] MEDS ORDERED: LORAZEPAM 2 MG INJ IV ONE (01:00)
[2019-06-13 01:43] VITALS: BP 117/68; PULSE 78; RESP 78
[2019-06-13 07:30] VITALS: BP 135/79; PULSE 83; RESP 20
== END 2019-06-13 08:30 | disposition left against medical advice (07) ==
LOC: E/R 13:12 → PP2 16:16
PROVIDERS: ADMIT Internal Medicine; ATTEND Internal Medicine
DX: R11.2 Nausea with vomiting, unspecified (principal); G89.3 Neoplasm related pain (acute) (chronic); C20 Malignant neoplasm of rectum; Z72.0 Tobacco use
CPT/HCPCS: 36415; 80053; 83036; 83690; 83735; 84100; 84443; 85025; 96374; 96375; 96376; J1170; J2060; J2405; J2765; J7030; Z7500; Z7502; Z7610; 99217; G0378